=== PATIENT | male | born 1950 | race Caucasian/White ===

== ENCOUNTER 2019-11-29 07:37 | Outpatient (CLI) | payer MEDICARE, SELFPAY ==
--- NOTE | ~2019-11-29 | NM_ITS ---
NM bone scan whole body INDICATION: Metastatic disease. Prostate cancer. TECHNIQUE: The patient was injected with 26.1 mCi Tc 99m HDP. Gamma camera images of the region of i nterest and whole body were obtained. COMPARISON: Comparison to multiple prior studies sequentially, with oldest reviewed study dated 07/14. FINDINGS: There is widespread abnormal radiotracer uptake in the ribs, sternum, spine, femora and the skull, consistent with metastatic disease. The degree of radiotracer uptake is significantly diminis hed compared with 07/14/2018, although not significantly changed compared with 02/15/2019. 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 No significant ch rain to distribution of uptake. IMPRESSION: 1: Widespread radiotracer uptake, compatible with metastatic disease, stable compared with 02/15/2019 and improved compared with 07/14/2018. Reviewed, dictated and finalized at location A. TUTOR IMPRESSION: 1: Widespread radiotracer uptake, compatible with metastatic disease, stable c ompared with 02/15/2019 and improved compared with 07/14/2018.
== END 2019-11-29 07:38 | disposition home or self-care (01) ==
PROVIDERS: PCP Physician Assistant; Visit Provider Internal Medicine Hematology & Oncology
DX: C79.51 Secondary malignant neoplasm of bone (principal)
CPT/HCPCS: 78306; A9561

== ENCOUNTER 2020-04-26 08:34 | Outpatient (CLI) | payer MEDICARE, SELFPAY ==
--- NOTE | ~2020-04-26 | XR_ITS ---
EXAMINATION: XR abdomen/kub 1V EXAM DATE: 04/26/2020 08:48 INDICATION: Gross hematuria. Fragmented symphysis pubis. TECHNIQUE: Frontal projection of the upper abdomen, frontal projection lower abdomen/pelvis for inter pretation. Comparison is made to prior examination from 01/17/2017. FINDINGS: There is expected amount of colonic stool and gas. No small bowel dilation, nonobstructiv e bowel gas pattern. There are no suspicious calcifications identified. There is no organomegaly suspected. Extensive osteoblastic disease in fragment appearance to the pubic symphysis, likely radi ation osteitis and/or osteoblastic disease. IMPRESSION: No suspicious calcifications identified. Reviewed, dictated and finalized at location A.
--- NOTE | ~2020-04-26 | CT_ITS ---
EXAMINATION: CT abdomen pelvis wo/w con EXAM DATE: 04/26/2020 09:16 INDICATION: History kidney stones. Low abdominal pain 4-5 weeks. History prostate cancer. Gross hemat uria. TECHNIQUE: Spiral CT of the abdomen and pelvis was performed without contrast. The patient was then injected with small bolus intravenous Omnipaque 350, followed by delay of approximately 10 minutes to allow collecting system to opacify. A post contrast scan abdomen and pelvis was performed during inj ection of remaining contrast. A total of 130 cc intravenous contrast was administered. The dose-eli th product (DLP) for this examination was 2631.08 mGy-cm. The exposure was tailored according to pat ient size (auto mA exposure control), and iterative reconstruction (ASIR) was used as additional dose reduction technique. Comparison is made to prior examination from 08/13/2019. FINDINGS: Again there is extensive osteoblastic disease, sclerosis of the pubic symphysis, with fragm entation and bony productive change, development of small cystic space measuring 3.1 x 1.8 cm between the superior margin of the pubic symphysis and the bladder, with several tiny foci of gas inside. Un derlying etiology for this could be osteoblastic disease or radiation osteitis. Contrast within the b ladder on the delayed sequence dose not extend into this fluid pocket. The bladder wall contiguous to this is diffusely thickened. Status post prostatectomy with small amount of contrast extending along the expected course of urethra in the prostatectomy bed. Kidneys enhance symmetrically and there is no hydronephrosis or suspicious renal lesions. There is implanted device incompletely imaged, but wit h reservoir in the right inguinal region. The liver, spleen, adrenal glands and pancreas are unremarkable. Gallbladder is unremarkable. No bi liary obstruction. There is no retroperitoneal or pelvic lymphadenopathy. There is mild scattered arteriosclerotic disease. The appendix is normal. The stomach and small bowel are unremarkable. There is expected amount of c olonic stool. There is mild scattered colonic diverticulosis. There is no adjacent inflammatory klein ge to suggest diverticulitis. No free intraperitoneal gas. The heart is normal in size. There are no pericardial or pleural effusions. The lung bases are unremarkable. The extensive osteoblastic d isease includes pelvis, vertebral bodies and ribs probably with several pathological subacute to rn chronic nargis rib fractures. IMPRESSION: 1. Fragmented pubic symphysis now with small fluid pocket between this and the bladder, could be hem atoma/seroma. Bladder wall contiguous to this is diffusely thickened but no urine/contrast extended w ithin this to specifically suggest leak. 2. Extensive osteoblastic disease not significantly changed. Reviewed, dictated and finalized at location A. IMPRESSION: 1. Fragmented pubic symphysis now with small fluid pocket between this and the bladder, could be hematoma/seroma. Bladder wall contiguous to this is diffusel y thickened but no urine/contrast extended within this to specifically suggest leak. 2. Extensive osteoblastic disease not significantly changed.
[2020-04-26 08:59] LABS: Estimated Glomerular Filt Rate > 60
== END 2020-04-26 08:35 | disposition home or self-care (01) ==
PROVIDERS: PCP Physician Assistant; Visit Provider Urology
DX: R31.0 Gross hematuria (principal)
CPT/HCPCS: 36415; 74018; 74178; Q9967

== ENCOUNTER 2020-05-31 08:22 | Outpatient (CLI) | payer MEDICARE, SELFPAY ==
[2020-05-31 08:54] LABS: Basophils Percent Auto 0.5 % (0.2-1.2); Eosinophils Absolute Auto 0.2 K/mm3 (0-0.3); Eosinophils Percent Auto 3.3 % (0-4.4); Hematocrit 38.5 % (42.0-52.0); Hemoglobin 12.4 g/dL (14.0-18.0); Immature Granulocyte Absolute 0.02 K/mm3 (0.00-0.031); Immature Granulocyte Percent A 0.3 % (0-0.5); Lymphocytes Percent Auto 21.3 % (18.3-44.2); Mean Corpuscular HGB Conc 32.2 g/dl (32-36); Mean Corpuscular Hemoglobin 29.6 pg (26-34); Mean Corpuscular Volume 91.9 fl (80-100); Mean Platelet Volume 9.1 fl (7.4-10.4); Monocytes Absolute Auto 0.5 K/mm3 (0.1-0.6); Monocytes Percent Auto 8.5 % (2.6-8.5); Neutrophils Percent Auto 66.1 % (45.5-73.1); Platelet Count Result 258 k/mm3 (150-375); Red Blood Count 4.19 M/mm3 (4.6-6.20); Red Cell Distribution Width 15.9 % (11.5-14.5); White Blood Count 6.1 K/mm3 (4.5-10.0)
[2020-05-31 10:16] LABS: Alanine Aminotransferase 12 U/L (4-50); Albumin Level 3.8 g/dL (3.5-5.1); Alkaline Phosphatase 71 U/L (38-126); Anion Gap 12.4 mmol/L (7-16); Aspartate Amino Transferase 20 U/L (17-59); Bilirubin,Total 0.3 mg/dL (0.2-1.3); Blood Urea Nitrogen 16 mg/dL (9-20); Carbon Dioxide 26 mmol/L (22-30); Chloride 108 mmol/L (98-107); Cholesterol 196 mg/dL (0-200); Estimated Glomerular Filt Rate > 60; Glucose 111 mg/dL (75-110); HDL Direct 52 mg/dL; Potassium 4.4 mmol/L (3.4-5.0); Sodium 142 mmol/L (137-145); Triglycerides 165 mg/dL (<150)
[2020-05-31 10:24] LABS: Hemoglobin A1C 5.1 % (<5.7)
[2020-05-31 10:27] LABS: LDL Cholesterol Direct 105 mg/dL
[2020-05-31 10:39] LABS: Free T4 Free Thyroxine 1.07 ng/mL (0.78-2.19)
[2020-05-31 10:55] LABS: Prostate Specific Antigen < 0.1 ng/mL (< OR = 4.0)
== END 2020-05-31 08:23 | disposition home or self-care (01) ==
PROVIDERS: PCP Physician Assistant; Visit Provider Internal Medicine Hematology & Oncology
DX: C61 Malignant neoplasm of prostate (principal); C79.51 Secondary malignant neoplasm of bone; R73.09 Other abnormal glucose; Z79.899 Other long term (current) drug therapy
CPT/HCPCS: 36415; 80053; 80061; 83036; 84153; 84439; 84443; 85025

== ENCOUNTER 2020-09-05 09:35 | Outpatient (CLI) | payer MEDICARE, SELFPAY ==
--- NOTE | ~2020-09-05 | CT_ITS ---
EXAMINATION: CT chest abdomen pelvis w con DATE: 09/05/2020 10:31 INDICATION: Prostate cancer metastatic to the bone TECHNIQUE: Transaxial computed tomographic images of the chest, abdomen, and pelvis were obtained aft er the administration of 100 cc of Omnipaque 350 intravenous contrast. The dose-length product (DLP) was 1926.31 mGy-cm. Automated exposure control and iterative reconstruction technique were employed. COMPARISON: 04/26/2020 FINDINGS: CHEST CT: There is mild dependent atelectasis. There are trace pleural effusions. No pneumothorax is identified . No pathologically enlarged thoracic lymph nodes are identified. The heart size is normal. Calcified coronary artery atherosclerosis is noted. There is widespread sclerotic osseous metastatic disease t hroughout all visualized bones of the thorax. ABDOMEN/PELVIS CT: The liver, spleen, pancreas, gallbladder, and adrenal glands are normal. The kidneys are unremarkable . No pathologically enlarged abdominal or pelvic lymph nodes are identified. There is no free intrape ritoneal gas or evidence of bowel obstruction. A reservoir for a penile pump is implanted in the righ t inguinal region. There is chronic wall thickening of the urinary bladder. There our widespread osse ous metastases involving all bones of the abdomen and pelvis. There is chronic fragmentation of the p ubic symphysis. An approximately 3.8 x 1.9 cm fluid collection is seen in the area of the pubic symph ysis. IMPRESSION: 1. Widespread osseous metastatic disease. 2. Chronic osteitis of the pubic symphysis which may reflect radiation necrosis and/or osteomyelitis with chronic associated fluid collection, chronic anterior urethral fistula previously identified. 3. Bladder wall thickening which could reflect radiation change or chronic cystitis. Reviewed, dictated and finalized at location A. BENDER IMPRESSION: 1. Widespread osseous metastatic disease. 2. Chronic osteitis of the pubic symphysis which may reflect radiation necrosis and/or osteomyelitis with chronic associated fluid collection, chronic anterio r urethral fistula previously identified. 3. Bladder wall thickening which could reflect radiation change or chronic cyst itis.
--- NOTE | ~2020-09-05 | NM_ITS ---
EXAMINATION: NM bone scan whole body DATE: 09/05/2020 13:56 INDICATION: Metastatic prostate cancer TECHNIQUE: 23.5 mCi Tc-99m HDP was administered intravenously. Delayed whole-body scintigrams were o btained. COMPARISON: Bone scan dated 11/29/[address] chest abdomen and pelvis dated 09/05/2020 FINDINGS: There is a heterogeneous pattern of diffuse mildly increased bone uptake throughout the axial and amarjit endicular skeleton with corresponding widespread sclerotic bone lesions on CT. There is more focal up take in the region of the pubic symphysis likely related to combination of urine activity at the pubi c symphysis resulting from a previous noted likely urethral fistula with the joint space as well as t o the destructive and hypertrophic bone changes at the pubic bodies which itself is likely related to radiation necrosis and/or chronic osteomyelitis. Additional slightly more intense bone uptake is see n at the right side of the mandible which could be related to either metastatic disease or potentiall y dental disease. IMPRESSION: 1. Similar pattern and appearance to widespread metastatic bone disease. 2. 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 Reviewed, dictated and finalized at location A. INSTALLATION TECHNICIAN IMPRESSION: 1. Similar pattern and appearance to widespread metastatic bone disease. 2. Persistent increased activity at the pubic symphysis consistent with radiati on osteonecrosis, chronic osteomyelitis, urine activity communicate with the pu bic symphysis or some combination thereof.
== END 2020-09-05 09:36 | disposition home or self-care (01) ==
PROVIDERS: PCP Physician Assistant; Visit Provider Internal Medicine Hematology & Oncology
DX: C61 Malignant neoplasm of prostate (principal); C79.51 Secondary malignant neoplasm of bone
CPT/HCPCS: 71260; 74177; 78306; A9561; Q9967

== ENCOUNTER → 2020-10-31 11:55 | Outpatient (REF) | payer MEDICARE, SELFPAY | LOC: ANHLAB 11:55 | PROVIDERS: PCP Physician Assistant; Visit Provider Nurse Practitioner | DX: D49.2 Neoplasm of unspecified behavior of bone, soft tissue, and skin (principal) | CPT/HCPCS: 88305 ==

== ENCOUNTER 2020-11-23 15:10 | Outpatient (CLI) | payer MEDICARE, SELFPAY ==
--- NOTE | ~2020-11-23 | US_ITS ---
EXAMINATION: US carotid duplex BI DATE: 11/23/2020 16:01 INDICATION: Dizziness and giddiness. Cerebral atherosclerosis. Metastatic prostate cancer. TECHNIQUE: Grayscale, color Doppler, and pulsed Doppler images of the cervical carotid arteries were obtained. The degree of vessel stenosis is placed in one of the following categories: normal, <50%, 5 0-69%, >=70% but less than near-occlusion, near-occlusion, or total occlusion. Note that percent sten osis relative to normal distal artery lumen diameter is indirectly measured from velocity measurement s as described by Quique, et al. Radiology 2003; 229:340-346. COMPARISON: None. FINDINGS: RIGHT: The right common carotid artery (CCA) peak systolic velocity (PSV) is 102 cm/s. The right internal ca rotid artery (ICA) PSV is 58 cm/s. The right ICA end-diastolic velocity (EDV) is 18 cm/s. The right I CA/CCA PSV ratio is 0.6. Grayscale and color Doppler images yield an estimate of <50% diameter reduct ion from plaque in the ICA. The external carotid artery (ECA) PSV is 99 cm/s. There is antegrade flow in the right vertebral artery. LEFT: The left CCA PSV is 98 cm/s. The left ICA PSV is 84 cm/s. The left ICA EDV is 19 cm/s. The left ICA/C CA PSV ratio is 0.9. Grayscale and color Doppler images yield an estimate of <50% diameter reduction from plaque in the ICA. The ECA PSV is 77 cm/s. There is antegrade flow in the left vertebral artery. IMPRESSION: 1. <50% stenosis from minimal plaque in the right internal carotid artery. 2. <50% stenosis from minimal plaque in the left internal carotid artery. 3. Intermittent cardiac arrhythmia is present. Correlate with EKG . Reviewed, dictated and finalized at location A. DING OPERATOR
--- NOTE | ~2020-11-23 | MR_ITS ---
EXAMINATION: MR brain/brain stem wo/w con DATE: 11/23/2020 16:49 INDICATION: Dizziness and giddiness. Metastatic prostate cancer. TECHNIQUE: Magnetic resonance imaging (MRI) of the brain and brainstem was performed . without and wi th 20 mL Multihance intravenous contrast. Sequences included sagittal and axial T1-weighted SE, axial diffusion-weighted FS SE, axial T2*-weighted GRE, axial T2-weighted FLAIR, and axial T2-weighted FSE . Postcontrast axial and coronal T1-weighted SE was obtained. Apparent diffusion coefficient (ADC) ma ps were created. COMPARISON: None. FINDINGS: There are no areas of restricted diffusion to suggest acute infarction. No intracranial hemorrhage or abnormal intracranial mass lesion. There are scattered areas of nonspecific increased T2-weighted si gnal intensity in the cerebral white matter, predominantly involving the deep and periventricular whi te matter. There are no intraparenchymal signal abnormalities seen on the other pulse sequences. Symm etric prominence of the sulci consistent with mild age-appropriate diffuse cerebral volume loss. The ventricles are symmetric and normal in size. There are no abnormal extra-axial fluid collections. Fl ow voids are seen in the cerebral arteries on the T2-weighted sequences consistent with their expecte d patency. Changes of bilateral intraocular lens replacement. Visualized orbits and soft tissues are unremarkable. There are no areas of abnormal enhancement on the post contrast images. There is loss o f T1 marrow fat signal throughout the cervical spine and patchy decreased T1 fat signal in the skull consistent with provided history of widespread osseous metastatic prostate cancer. IMPRESSION: 1. Normal aging brain with mild volume loss and mild scattered white matter T2 hyperintensity consist ent with chronic small vessel ischemic disease. No acute intracranial process or abnormally enhancing brain lesions. 2. Patchy decreased marrow T1 fat signal in the skull and throughout the visualized cervical spine co nsistent with known history of osseous metastatic prostate cancer. Reviewed, dictated and finalized at location A. T HELPER IMPRESSION: 1. Normal aging brain with mild volume loss and mild scattered white matter T2 hyperintensity consistent with chronic small vessel ischemic disease. No acute intracranial process or abnormally enhancing brain lesions. 2. Patchy decreased marrow T1 fat signal in the skull and throughout the visual ized cervical spine consistent with known history of osseous metastatic prostat e cancer.
== END 2020-11-23 15:11 | disposition home or self-care (01) ==
PROVIDERS: PCP Physician Assistant; Visit Provider Physician Assistant
DX: R42 Dizziness and giddiness (principal); R93.0 Abnormal findings on diagnostic imaging of skull and head, not elsewhere classified; I65.23 Occlusion and stenosis of bilateral carotid arteries
CPT/HCPCS: 70553; 93880; A9577

== ENCOUNTER 2020-12-04 10:35 | Outpatient (CLI) | payer MEDICARE, SELFPAY ==
--- NOTE | 2020-12-04 | ECG_ITS ---
Measurements Intervals [place] Rate: 58 P: 7 MS: 144 QRS: -29 QRSD: 94 T: 1 QT: 430 QTc: 422 Interpretive Statements SINUS BRADYCARDIA DELAYED PRECORDIAL R/S TRANSITION VOLTAGE CRITERIA FOR LVH BORDERLINE T WAVE ABNORMALITY- INFERIOR LEADS BASELINE ARTIFACT- II, III, AVF BORDERLINE ECG Electronically Signed On 12-04-2020 11:06:09 CARE PROFESSIONAL by Percy Adhikari D.O.
== END 2020-12-04 10:36 | disposition home or self-care (01) ==
PROVIDERS: PCP Physician Assistant; Visit Provider Physician Assistant
DX: I49.9 Cardiac arrhythmia, unspecified (principal)
CPT/HCPCS: 93005

== ENCOUNTER → 2020-12-12 10:39 | Outpatient (REF) | payer MEDICARE, SELFPAY | LOC: ANHLAB 10:39 | PROVIDERS: PCP Physician Assistant; Visit Provider Nurse Practitioner | DX: C44.519 Basal cell carcinoma of skin of other part of trunk (principal) | CPT/HCPCS: 88305 ==

== ENCOUNTER 2020-12-12 13:18 | Outpatient (CLI) | payer MEDICARE, SELFPAY ==
[2020-12-12 13:34] LABS: Basophils Percent Auto 0.4 % (0.2-1.2); Eosinophils Absolute Auto 0.1 K/mm3 (0-0.3); Eosinophils Percent Auto 0.8 % (0-4.4); Hematocrit 37.1 % (42.0-52.0); Hemoglobin 12.1 g/dL (14.0-18.0); Immature Granulocyte Absolute 0.03 K/mm3 (0.00-0.031); Immature Granulocyte Percent A 0.4 % (0-0.5); Lymphocytes Absolute Auto 1.43 K/mm3 (0.9-3.2); Lymphocytes Percent Auto 19.2 % (18.3-44.2); Mean Corpuscular HGB Conc 32.6 g/dl (32-36); Mean Corpuscular Hemoglobin 29.9 pg (26-34); Mean Corpuscular Volume 91.6 fl (80-100); Mean Platelet Volume 8.9 fl (7.4-10.4); Monocytes Absolute Auto 0.6 K/mm3 (0.1-0.6); Monocytes Percent Auto 7.9 % (2.6-8.5); Neutrophils Absolute Auto 5.3 K/mm3 (1.3-6.7); Neutrophils Percent Auto 71.3 % (45.5-73.1); Platelet Count Result 251 k/mm3 (150-375); Red Blood Count 4.05 M/mm3 (4.6-6.20); Red Cell Distribution Width 14.9 % (11.5-14.5); White Blood Count 7.4 K/mm3 (4.5-10.0)
[2020-12-12 16:55] LABS: Hemoglobin A1C 5.1 % (<5.7)
[2020-12-12 17:46] LABS: Alanine Aminotransferase 14 U/L (4-50); Albumin Level 3.8 g/dL (3.5-5.1); Alkaline Phosphatase 67 U/L (38-126); Anion Gap 9 mmol/L (8-16); Aspartate Amino Transferase 24 U/L (17-59); Bilirubin,Total 0.2 mg/dL (0.2-1.3); Blood Urea Nitrogen 24 mg/dL (9-20); Calcium 9.5 mg/dL (8.4-10.2); Carbon Dioxide 27 mmol/L (22-30); Chloride 109 mmol/L (98-107); Estimated Glomerular Filt Rate > 60; Glucose 162 mg/dL (75-110); Potassium 3.8 mmol/L (3.4-5.0); Sodium 145 mmol/L (137-145)
[2020-12-12 17:52] LABS: Free T4 Free Thyroxine 0.89 ng/mL (0.78-2.19)
[2020-12-12 18:15] LABS: Prostate Specific Antigen 0.2 ng/mL (< OR = 4.0)
== END 2020-12-12 13:19 | disposition home or self-care (01) ==
LOC: ANHLAB 13:19
PROVIDERS: Internal Medicine Hematology & Oncology; PCP Physician Assistant; Visit Provider Physician Assistant
DX: Z79.899 Other long term (current) drug therapy (principal); R73.09 Other abnormal glucose; C79.51 Secondary malignant neoplasm of bone
CPT/HCPCS: 36415; 80053; 83036; 84153; 84439; 84443; 85025; 88305

== ENCOUNTER 2021-05-10 06:31 | Outpatient (CLI) | payer MEDICARE, SELFPAY ==
--- NOTE | ~2021-05-10 | CT_ITS ---
EXAMINATION: CT chest abdomen pelvis w con EXAM DATE: 05/10/2021 07:03 INDICATION: Cancer, metastatic to bone. TECHNIQUE: Spiral CT of the chest, abdomen and pelvis was performed following intravenous injection o f 100 mL Omnipaque 350. Axial, coronal and sagittal images chest, abdomen and pelvis were reviewed. Coronal maximum intensity pixel images of chest reviewed. The dose-length product (DLP) for this ex amination was 1948.11 mGy-cm. The exposure was tailored according to patient size (auto mA exposure control), and iterative reconstruction (ASIR) was used as additional dose reduction technique. Compar dillon is made to prior examination from 09/05/2020. FINDINGS: CHEST: The lungs are clear. There are no pleural or pericardial effusions. Tracheobronchial tree is patent. There is no mediastinal, hilar or axillary lymphadenopathy. There is no pneumothorax. Mild cardiomegaly. Mild emphysema. There is mild coronary arterial calcification, arterial sclero sis. ABDOMEN PELVIS: There is extensive osteoblastic disease, ill-defined sclerosis throughout the bones. Again there is fragmented appearance to the pubis symphysis with some diastases with interval increas e in density, no evidence of acute erosive change. Could be radiation osteitis. The liver, spleen, adrenal glands and pancreas are unremarkable. Gallbladder is unremarkable. No bi liary obstruction. Portal and splenic veins are patent. Kidneys enhance symmetrically. There is no hydronephrosis. Punctate left mid calyceal stone. Corpora implant, reservoir deep right inguinal can al. Patient has likely had prostatectomy. The bladder is unremarkable. There is no retroperitoneal or pelvic lymphadenopathy. There is mild scattered arteriosclerotic disease. The appendix is normal. There is mild scattered colonic diverticulosis. There is no adjacent inflamm atory change to suggest diverticulitis. The stomach and small bowel are unremarkable. There is expec kayden amount of colonic stool. No free intraperitoneal gas. IMPRESSION: 1. Extensive osteoblastic disease unchanged. 2. Chronic pubic symphysis diastases, fragmentation. Radiation osteitis? 3. Punctate left nephrolithiasis. 4. Scattered colonic diverticulosis. 5. Mild emphysema. Reviewed, dictated and finalized at location B.
== END 2021-05-10 06:32 | disposition home or self-care (01) ==
LOC: ANHIMG 06:37
PROVIDERS: PCP Physician Assistant; Visit Provider Internal Medicine Medical Oncology
DX: C79.51 Secondary malignant neoplasm of bone (principal); N20.0 Calculus of kidney; K57.30 Diverticulosis of large intestine without perforation or abscess without bleeding; J43.9 Emphysema, unspecified
CPT/HCPCS: 71260; 74177; Q9967

== ENCOUNTER 2021-05-11 07:39 | Outpatient (CLI) | payer MEDICARE, SELFPAY ==
--- NOTE | ~2021-05-11 | NM_ITS ---
EXAMINATION: NM bone scan whole body DATE: 05/11/2021 12:43 INDICATION: Prostate cancer metastatic to bone. TECHNIQUE: 26.8 mCi Tc-99m HDP was administered intravenously. Delayed whole-body scintigrams were o btained. COMPARISON: Bone scan 09/05/2020, CT chest, abdomen, and pelvis 05/10/2021 FINDINGS: There is widespread heterogeneous increased activity in the ribs and spine. There is increa sed activity in the sternum, humeral heads, and clavicles. There is increased activity in the femora. There is increased activity in the feet without radiographic comparison, likely osteoarthritis. Ther e is normal activity in the kidneys. IMPRESSION: 1. Stable distribution of widespread increased activity in the bones correlating with sclerotic lesio ns by CT, consistent with metastatic disease. Reviewed, dictated and finalized at location A. IMPRESSION: 1. Stable distribution of widespread increased activity in the bones correlatin g with sclerotic lesions by CT, consistent with metastatic disease.
== END 2021-05-11 07:40 | disposition home or self-care (01) ==
LOC: ANHIMG 07:43
PROVIDERS: PCP Physician Assistant; Visit Provider Internal Medicine Medical Oncology
DX: C79.51 Secondary malignant neoplasm of bone (principal)
CPT/HCPCS: 78306; A9561

== ENCOUNTER 2021-07-10 12:17 | Emergency (ER) | payer MEDICARE, SELFPAY ==
[2021-07-10] VITALS (9 sets, daily range): BP systolic 144–187; BP diastolic 62–94; PULSE 46–60; RESP 13–25; TEMP 36.6; O2SAT 95–97
--- NOTE | 2021-07-10 12:38 | ECG_ITS ---
Measurements Intervals [place] Rate: 56 P: 60 SC: 162 QRS: -25 QRSD: 101 T: -10 QT: 431 QTc: 418 Interpretive Statements SINUS BRADYCARDIA VENTRICULAR BIGEMINY DELAYED PRECORDIAL R/S TRANSITION LEFT VENTRICULAR HYPERTROPHY WITH ST-T CHANGE BORDERLINE T WAVE ABNORMALITY- INFERIOR LEADS BASELINE ARTIFACT- I, III ABNORMAL ECG Electronically Signed On 07-10-2021 14:55:18 CDT by Percy Adhikari D.O.
[2021-07-10 13:27] LABS: Basophils Percent Auto 0.3 % (0.2-1.2); Eosinophils Absolute Auto 0.1 K/mm3 (0-0.3); Eosinophils Percent Auto 1.2 % (0-4.4); Hematocrit 40.7 % (42.0-52.0); Hemoglobin 13.4 g/dL (14.0-18.0); Immature Granulocyte Absolute 0.06 K/mm3 (0.00-0.031); Immature Granulocyte Percent A 0.5 % (0-0.5); Lymphocytes Absolute Auto 1.71 K/mm3 (0.9-3.2); Lymphocytes Percent Auto 14.9 % (18.3-44.2); Mean Corpuscular HGB Conc 32.9 g/dl (32-36); Mean Corpuscular Hemoglobin 30.7 pg (26-34); Mean Corpuscular Volume 93.1 fl (80-100); Mean Platelet Volume 9.1 fl (7.4-10.4); Monocytes Absolute Auto 0.6 K/mm3 (0.1-0.6); Neutrophils Absolute Auto 8.9 K/mm3 (1.3-6.7); Neutrophils Percent Auto 78.1 % (45.5-73.1); Platelet Count Result 260 k/mm3 (150-375); Red Blood Count 4.37 M/mm3 (4.6-6.20); White Blood Count 11.5 K/mm3 (4.5-10.0)
[2021-07-10 13:40] LABS: Anion Gap 10 mmol/L (8-16); Blood Urea Nitrogen 26 mg/dL (9-20); Calcium 9.3 mg/dL (8.4-10.2); Carbon Dioxide 24 mmol/L (22-30); Chloride 109 mmol/L (98-107); Estimated CRCL calculation 118 ml/min; Estimated Glomerular Filt Rate > 60; Glucose 151 mg/dL (65-110); Sodium 143 mmol/L (137-145)
[2021-07-10 13:41] LABS: INR 0.9; Partial Thromboplastin Time 32.3 SECONDS (22.3-36.8); Prothrombin Time 11.9 Seconds (11.1-14.7)
[2021-07-10 13:52] LABS: Troponin I < 0.012 ng/mL (0.000-0.034)
[2021-07-10] MEDS: MECLIZINE HCL 25 MG TABLET PO (14:46)
[2021-07-10] MEDS: SODIUM CHLORIDE 0.9% IV 1,000 ML 999 ML IV CONT (16:17)
[2021-07-10 16:36] LABS: Troponin I 0.023 ng/mL (0.000-0.034)
--- NOTE | 2021-07-10 17:42 | ED.DIZZY ---
HPI - Dizziness General Chief Complaint: Dizziness Stated Complaint: DIZZY,NAUSEA Time Seen by Provider: 07/10/21 12:42 History of Present Illness HPI Narrative: Patient is a 70-year-old male who presents ER with dizziness. Worse with turning his head to the right and also a certain position changes. It is rotational in nature and associated with nausea and vomiting and diaphoresis. Was not experiencing chest pain or pressure. Has had no ringing in his ears. No focal weakness in arm or leg. Related Data Home Medications Medication Instructions Recorded Confirmed magnesium oxide 800 mg PO DAILY 08/24/19 05/31/21 calcium carb,cit 300 mg-D3 200 1 tablet PO DAILY 10/31/20 05/31/21 unit-min no.34-genistein 13.5 mg tablet leuprolide 3.75 mg intramuscular 3.75 mg IM MONTHLY 10/31/20 05/31/21 syringe kit vitamin K2 40 mcg tablet 40 mcg PO DAILY 10/31/20 05/31/21 denosumab [Xgeva] 120 mg SUBCUT ONCE 07/10/21 enzalutamide [Xtandi] 160 mg PO DAILY 07/10/21 ferrous sulfate [FeroSul] mg 07/10/21 hydrocodone-acetaminophen tablet 07/10/21 ibuprofen 07/10/21 morphine PO 07/10/21 Allergies Allergy/AdvReac Type Severity Reaction Status Date / Time No Known Allergies Allergy Unknown . Verified 06/28/21 11:42 Review of Systems Review of Systems: All systems reviewed & are unremarkable except as noted in HPI and below Constitutional: Constitutional: Denies chills, Denies fever(s) and Denies weakness ENT: Reports dizziness and Denies nasal congestion Cardiovascular: Cardiovascular: Denies chest pain and Denies radiating jaw, neck or arm pain Gastrointestinal: Gastrointestinal: Denies abdominal pain, Denies diarrhea, Reports nausea and Reports vomiting Neurologic: Denies headache(s), Denies focal weakness and Denies numbness [facility] Past Medical History Medical History (Updated 07/10/21 @ 17:55 by Edin Morillo MD) Bone metastasis Kidney stones Obstructive sleep apnea Prostate cancer Surgical History Surgical History (Updated 07/10/21 @ 17:46 by Edin Morillo MD) H/O umbilical hernia repair Family History Family History Mother Family history of malignant neoplasm of breast in first degree relative Carcinoma of colon Father Family history of Parkinson's disease Social History Social History Smoking status: Never smoker Alcohol intake: never Exam Narrative: GENERAL: Well-appearing, well-nourished, and in no acute distress. HEAD: Normocephalic, atraumatic. EYES: PERRL and EOMI. right gaze nystagmus. ENT: Mucous membranes moist. Bilateral cerumen impaction right greater than left. CHEST: Clear to auscultation. No respiratory distress. HEART: Regular rate and rhythm. Normal peripheral pulses. EXTREMITIES: Normal range of motion. No edema. SKIN: Warm, dry, no rash. NEURO: Alert and oriented x3. PSYCH: Normal mood and affect. Course Course Emergency Course: Ears irrigated. Feels improved. Also received meclizine. Ambulatory without any dizziness. Vital Signs Vital signs: Vital Signs Temperature 97.9 F 07/10/21 12:14 Pulse Rate 60 07/10/21 12:14 Respiratory Rate 22 H 07/10/21 12:14 Blood Pressure 177/62 H 07/10/21 12:14 Pulse Oximetry 95 07/10/21 12:14 Temperature 97.9 F 07/10/21 12:14 Pulse Rate 60 07/10/21 15:30 Respiratory Rate 20 07/10/21 15:30 Blood Pressure 187/82 H 07/10/21 15:30 Pulse Oximetry 96 07/10/21 15:30 Procedures Ear Wax Removal Both Ears: Ear Wax Removal Date: 07/10/21 Ear Wax Removal Time: 16:30 Cerumenolytic Used: 5-10% Sodium Bicarb solution Results: Re-examined: some cerumen remains TM Examination: TM(s) intact, normal appearance Ear Canal Exam: atraumatic Patient Tolerated Procedure: well Technique: ear canal irrigated and ear canal curetted
== END 2021-07-10 18:40 | disposition home or self-care (01) ==
PROVIDERS: Emergency Medicine; Emergency Provider Emergency Medicine; PCP Physician Assistant
DX: H81.399 Other peripheral vertigo, unspecified ear (principal); H61.23 Impacted cerumen, bilateral; G47.33 Obstructive sleep apnea (adult) (pediatric); Z79.899 Other long term (current) drug therapy; Z51.81 Encounter for therapeutic drug level monitoring
CPT/HCPCS: 36415; 69210; 80048; 84484; 85025; 85610; 85730; 93005; 96360; 99284; A9270; J7030

== ENCOUNTER 2021-09-25 08:08 | Outpatient (CLI) | payer MEDICARE, SELFPAY ==
--- NOTE | ~2021-09-25 | CT_ITS ---
EXAMINATION: CT chest abdomen pelvis w con EXAM DATE: 09/25/2021 08:44 INDICATION: Prostate cancer. TECHNIQUE: Spiral CT of the chest, abdomen and pelvis was performed following intravenous injection o f 100 mL Omnipaque 350. Axial, coronal and sagittal images chest, abdomen and pelvis were reviewed. Coronal maximum intensity pixel images of chest reviewed. The dose-length product (DLP) for this ex amination was 1955.25 mGy-cm. The exposure was tailored according to patient size (auto mA exposure control), and iterative reconstruction (ASIR) was used as additional dose reduction technique. There is no prior study for comparison. FINDINGS: CHEST: The lungs are clear. There are no pleural or pericardial effusions. Tracheobronchial tree is patent. There is no mediastinal, hilar or axillary lymphadenopathy. There is no pneumothorax. Mild cardiomegaly. Mild emphysema. There is mild coronary arterial calcification, arterial sclero sis. ABDOMEN PELVIS: There is extensive osteoblastic disease, ill-defined sclerosis throughout the bones. Again there is fragmented appearance to the pubis symphysis with some diastases, could be radiation o steitis. There is 1 cm region of increased enhancement inferior aspect left liver lobe lateral segment, likely flash filling hemangioma. There is hepatic steatosis. The liver, spleen, adrenal glands and pancreas are otherwise unremarkable. Interval development of mild inflammation surrounding the gallbladder. No calcified cholelithiasis and only mild distention. No acute symptoms have been provided, could be chronic cholecystitis. Portal and splenic veins are patent. Kidneys enhance symmetrically. There is no hydronephrosis. Pun ctate left mid calyceal stone. Corpora implant, reservoir deep right inguinal region. Patient has lik julian had prostatectomy. The bladder is unremarkable. There is no retroperitoneal or pelvic lymphade nopathy. There is mild scattered arteriosclerotic disease. The appendix is normal. There is mild scattered colonic diverticulosis. There is no adjacent inflamm atory change to suggest diverticulitis. The stomach and small bowel are unremarkable. There is expec kayden amount of colonic stool. No free intraperitoneal gas. IMPRESSION: 1. Development of mild inflammation surrounding gallbladder without distention. No acute symptoms key ve been reported. Consider chronic cholecystitis. 2. Extensive osteoblastic disease unchanged. 3. Chronic pubic symphysis diastases, fragmentation. Radiation osteitis? 4. Punctate left nephrolithiasis. 5. Scattered colonic diverticulosis. 6. Mild emphysema. RDING CLERK Reviewed, dictated and finalized at location A. IMPRESSION: 1. Development of mild inflammation surrounding gallbladder without distention . No acute symptoms have been reported. Consider chronic cholecystitis. 2. Extensive osteoblastic disease unchanged. 3. Chronic pubic symphysis diastases, fragmentation. Radiation osteitis? 4. Punctate left nephrolithiasis. 5. Scattered colonic diverticulosis. 6. Mild emphysema.
--- NOTE | ~2021-09-25 | NM_ITS ---
EXAMINATION: NM bone scan whole body DATE: 09/25/2021 13:20 INDICATION: Prostate cancer TECHNIQUE: 25 mCi Tc-99m HDP was administered intravenously. Delayed whole-body scintigrams were obt ained. COMPARISON: CT dated 09/25/2021 FINDINGS: There is diffuse mild heterogeneous increased bone uptake throughout the skull, ribs and remainder th e visualized axial and appendicular skeleton consistent with widespread sclerotic metastatic bone dis ease as seen on prior CT. The degree of uptake is significantly decreased compared with earlier study dated 07/14/18. More prominent likely enthesopathic increased uptake at the bilateral patellae and an terior tibial tuberosities. IMPRESSION: 1. No significant change in a diffuse heterogeneous pattern of mild increased activity consistent wit h widespread osseous metastatic disease. Reviewed, dictated and finalized at location A. EN PRINTER IMPRESSION: 1. No significant change in a diffuse heterogeneous pattern of mild increased a ctivity consistent with widespread osseous metastatic disease.
== END 2021-09-25 08:09 | disposition home or self-care (01) ==
LOC: ANHIMG 08:12
PROVIDERS: PCP Physician Assistant; Visit Provider Internal Medicine Hematology & Oncology
DX: C61 Malignant neoplasm of prostate (principal); C79.51 Secondary malignant neoplasm of bone; N20.0 Calculus of kidney; K57.30 Diverticulosis of large intestine without perforation or abscess without bleeding; J43.9 Emphysema, unspecified
CPT/HCPCS: 71260; 74177; 78306; A9561; Q9967

== ENCOUNTER 2021-11-13 10:37 | Outpatient (CLI) | payer MEDICARE, SELFPAY ==
[2021-11-13 11:47] LABS: Cholesterol 211 mg/dL (0-200); HDL Direct 45 mg/dL; Triglycerides 302 mg/dL (<150)
[2021-11-13 11:49] LABS: Add Urine Microscopic? YES; Appearance Urine Clear (Clear); Bacteria Urine Trace /hpf; Bilirubin Urine Negative (Negative); Blood Urine Negative (Negative); Color Urine Yellow (Yellow); Glucose Urine UA Negative (Negative); Ketones Urine Negative (Negative); Leukocyte Esterase Ur Negative LEU/UL (NEGATIVE); Mucus Urine Few /lpf; Nitrate Urine Negative (Negative); Protein Urine 1+ mg/dL (Negative); RBC Urine 0-2 /hpf (0-2); Specific Grav Ur 1.026 (1.001-1.035); Squamous Epithelial Cell Urine Few /hpf (Few); Urobilinogen Urine Negative mg/dL (<2.0)
[2021-11-13 11:58] LABS: LDL Cholesterol Direct 100 mg/dL
[2021-11-13 12:03] LABS: Free T4 Free Thyroxine 1.01 ng/mL (0.78-2.19)
== END 2021-11-13 10:38 | disposition home or self-care (01) ==
LOC: ANHLAB 10:39
PROVIDERS: PCP Physician Assistant; Visit Provider Internal Medicine Hematology & Oncology
DX: Z51.81 Encounter for therapeutic drug level monitoring (principal); Z79.899 Other long term (current) drug therapy; Z13.220 Encounter for screening for lipoid disorders
CPT/HCPCS: 36415; 80061; 81001; 82248; 84439; 84443

== ENCOUNTER 2022-04-05 15:09 | Observation (INO) | payer MEDICARE, SELFPAY ==
[2022-04-05] VITALS (10 sets, daily range): BP systolic 194–216; BP diastolic 85–142; PULSE 54–88; RESP 20–25; TEMP 35.8–36.3; O2SAT 94–97; BMI 39.4
--- NOTE | ~2022-04-05 | XR_ITS ---
EXAMINATION: XR chest 2V DATE: 04/05/2022 16:26 INDICATION: Dizziness and weakness TECHNIQUE: AP and lateral views of the chest are obtained. COMPARISON: 01/24/2015 FINDINGS: The lungs are free of acute opacities. There is no pleural effusion or pneumothorax. The ca rdiomediastinal silhouette is normal. There is mild thoracic spondylosis. IMPRESSION: 1. No acute cardiopulmonary abnormality. Reviewed, dictated and finalized at location F.
--- NOTE | ~2022-04-05 | CT_ITS ---
EXAMINATION: CT brain wo con INDICATION: Dizziness, nausea and vomiting COMPARISON: MRI, 11/23/2020 TECHNIQUE: Standard unenhanced head CT. The dose-length product (DLP) was 605.33 mGy-cm. The mA was a djusted according to patient size. Iterative reconstruction technique was employed. FINDINGS: There is no acute intraparenchymal hemorrhage. No evidence of mass lesion. No evidence of a cute infarction. There is mild periventricular and subcortical hypodensity probably related to small vessel ischemic disease. There is mild prominence of the sulci and ventricles related to cerebral atr ophy. Intracranial calcified cerebral atherosclerosis is noted. There are no extra-axial collections. There is no mass effect or midline shift. Changes in the globes are likely from ocular lens surgery. There is mild mucosal thickening of the paranasal sinuses. IMPRESSION: 1. No acute intracranial abnormality. 2. Age related findings. Reviewed, dictated and finalized at location F.
--- NOTE | 2022-04-05 15:39 | ECG_ITS ---
Measurements Intervals [place] Rate: 51 P: 19 WA: 135 QRS: -29 QRSD: 102 T: -20 QT: 467 QTc: 431 Interpretive Statements SINUS BRADYCARDIA WITH OCCASIONAL SUPRAVENTRICULAR PREMATURE COMPLEXES VOLTAGE CRITERIA FOR LVH [MEETS CRITERIA IN ONE OF: R(aVL), S(V1), R(V5), R(V5/V6)+S(V1)] NONSPECIFIC T-WAVE ABNORMALITY ABNORMAL ECG COMPARED TO ECG 07/10/2021 12:21:42 PVCS NOT APPRECIATED Electronically Signed On 04-05-2022 17:25:29 CDT by True Castro M.D.
--- NOTE | 2022-04-05 16:02 | ED.DIZZY ---
HPI - Dizziness General Chief Complaint: Syncope Stated Complaint: DIZZINESS AFTER MOWING LAWN Time Seen by Provider: 04/05/22 15:27 History of Present Illness HPI Narrative: 71 y/o male presents to the ER today for complaints of dizziness and lightheadedness. He was out mowing grass on a riding grief counsellor today and started to feel very dizzy. He rode back up to the house. His had to help him off of the mower but she had to pull a lawn chair up to the mower and helped him into the chair. He sat in the chair for a long while. He had some nausea and vomiting but this resolved. He had an episode where his vision seemed blurry that lasted briefly and resolved. He still Related Data Home Medications Medication Instructions Recorded Confirmed magnesium oxide 800 mg PO DAILY 08/24/19 03/19/22 calcium carb,cit 300 mg-D3 200 1 tablet PO DAILY 10/31/20 03/19/22 unit-min no.34-genistein 13.5 mg tablet (Citracal Plus Bone Density Builder) leuprolide 3.75 mg intramuscular 3.75 mg IM MONTHLY 10/31/20 03/19/22 syringe kit (Lupron Depot) vitamin K2 40 mcg tablet 40 mcg PO DAILY 10/31/20 03/19/22 denosumab 120 mg/1.7 mL (70 mg/mL) 120 mg subcut ONCE 07/10/21 03/19/22 subcutaneous solution (Xgeva) ferrous sulfate 325 mg (65 mg 325 mg PO DAILY 07/10/21 03/19/22 iron) tablet (FeroSul) hydrocodone 10 mg-acetaminophen 1 tablet PO Q8-12H PRN Pain 07/10/21 03/19/22 325 mg tablet ibuprofen 800 mg tablet 800 mg PO Q6-12H 07/10/21 03/19/22 morphine 15 mg tablet,extended 15 mg PO Q10-12H 07/10/21 03/19/22 release Allergies Allergy/AdvReac Type Severity Reaction Status Date / Time No Known Allergies Allergy Unknown . Verified 03/19/22 12:36 Review of Systems Review of Systems: All systems reviewed & are unremarkable except as noted in HPI and below Constitutional: Constitutional: Denies chills, Denies fever(s) and Denies weakness ENT: Reports dizziness and Denies nasal congestion Cardiovascular: Cardiovascular: Denies chest pain and Denies radiating jaw, neck or arm pain Gastrointestinal: Gastrointestinal: Denies abdominal pain, Denies diarrhea, Reports nausea and Reports vomiting Musculoskeletal: Musculoskeletal: Denies back pain, Denies myalgias and Denies arthralgias Neurologic: Denies vertigo, Reports dizziness, Denies syncope, Denies headache(s), Denies focal weakness and Denies numbness Endocrine: Endocrine: Denies fatigue, Denies polydipsia and Denies polyuria Hematologic/Lymphatic: Hematologic/Lymphatic: Denies easy bleeding and Denies easy bruising PMFSH Past Medical History Medical History Bone metastasis Kidney stones Obstructive sleep apnea Prostate cancer Surgical History Surgical History H/O umbilical hernia repair Family History Family History Mother Family history of malignant neoplasm of breast in first degree relative Carcinoma of colon Father Family history of Parkinson's disease Social History Social History Smoking status: Never smoker Alcohol intake: never Exam Const: General: no acute distress and alert; No ill appearing HENMT: Head: normal to inspection Eyes: Conjunctivae: conjunctivae normal Pupils: Equal, round and reactive pupils present Neck: Neck: normal visual inspection Chest: Chest palpation & inspection: normal inspection of the chest Resp: Effort & Inspection: normal respiratory effort, not labored and no retractions Cardio: Rate: regular rate Rhythm: regular rhythm Heart sounds: no murmurs GI: Auscultation: normal bowel sounds Other: Abdmomen soft, non-tender Skin: General skin exam: normal color Neuro: General: patient oriented x3, moves all extremities, no meningeal signs, no focal motor deficits and
[2022-04-05] MEDS: SODIUM CHLORIDE 0.9% IV 1,000 ML 999 ML IV CONT (16:10)
[2022-04-05 16:41] LABS: Basophils Percent Auto 0.4 % (0.2-1.2); Eosinophils Absolute Auto 0.1 K/mm3 (0-0.3); Eosinophils Percent Auto 0.5 % (0-4.4); Hematocrit 39.3 % (42.0-52.0); Hemoglobin 12.8 g/dL (14.0-18.0); Immature Granulocyte Percent A 0.9 % (0-0.5); Lymphocytes Absolute Auto 1.34 K/mm3 (0.9-3.2); Lymphocytes Percent Auto 12.2 % (18.3-44.2); Mean Corpuscular HGB Conc 32.6 g/dl (32-36); Mean Corpuscular Hemoglobin 29.5 pg (26-34); Mean Corpuscular Volume 90.6 fl (80-100); Monocytes Absolute Auto 0.6 K/mm3 (0.1-0.6); Monocytes Percent Auto 5.4 % (2.6-8.5); Neutrophils Absolute Auto 8.9 K/mm3 (1.3-6.7); Neutrophils Percent Auto 80.6 % (45.5-73.1); Platelet Count Result 245 k/mm3 (150-375); Red Blood Count 4.34 M/mm3 (4.6-6.20); Red Cell Distribution Width 14.7 % (11.5-14.5)
[2022-04-05 16:51] LABS: Prothrombin Time 12.6 Seconds (11.1-14.7)
[2022-04-05 16:52] LABS: Partial Thromboplastin Time 31.3 SECONDS (22.3-36.8)
[2022-04-05 16:53] LABS: Alanine Aminotransferase 18 U/L (6-50); Albumin Level 4.3 g/dL (3.5-5.1); Alkaline Phosphatase 102 U/L (38-126); Anion Gap 7 mmol/L (8-16); Aspartate Amino Transferase 35 U/L (17-59); Bilirubin,Total 0.4 mg/dL (0.2-1.3); Blood Urea Nitrogen 14 mg/dL (9-20); Calcium 9.1 mg/dL (8.4-10.2); Carbon Dioxide 28 mmol/L (22-30); Chloride 107 mmol/L (98-107); Estimated CRCL calculation 103 ml/min; Estimated Glomerular Filt Rate > 60; Glucose 167 mg/dL (65-110); Potassium 3.8 mmol/L (3.4-5.0); Sodium 142 mmol/L (137-145)
[2022-04-05 16:58] LABS: Appearance Urine Clear (Clear); Bilirubin Urine Negative (Negative); Blood Urine 1+ (Negative); Color Urine Yellow (Yellow); Glucose Urine UA Negative (Negative); Ketones Urine Negative (Negative); Leukocyte Esterase Ur Negative LEU/UL (Negative); Nitrate Urine Negative (Negative); Protein Urine Negative (Negative); Urobilinogen Urine 0.2 mg/dL (<2.0)
[2022-04-05 17:04] LABS: Add Urine Microscopic? YES; Mucus Urine Rare /lpf; RBC Urine 21-50 /hpf (0-2); Squamous Epithelial Cell Urine Rare /hpf (Few); WBC Urine 0-3 /hpf
[2022-04-05 17:17] LABS: Troponin I 0.037 ng/mL (0.000-0.034)
[2022-04-05] MEDS: ASPIRIN 81 MG CHEWABLE TABLET 324 MG PO (19:31)
[2022-04-05 20:08] LABS: SARS-CoV-2 RNA PCR Negative
[2022-04-05 20:51] LABS: Troponin I 0.052 ng/mL (0.000-0.034)
--- NOTE | 2022-04-05 22:06 | ADMIMU ---
This patient, Tesfaye Tejada, was admitted to IMU status, and placed in IMU Room 206-02 at 2130. Patient/family oriented to hospital policies and general routines including ID bracelet, bed and alarms, visiting hours, pain management, procedures, bathroom and other care routines, personal items, smoking policy, room service/diet, and visiting hours. Information on how to activate the Rapid Response Team has been discussed. Patient/Family are encouraged to report perceived risks to care and to ask questions if they do not understand what they are told or what they should do.
--- NOTE | 2022-04-05 22:35 | PM.IMHP ---
H&P: HPI History of Present Illness Date/Time: 04/05/22 22:35 [facility] Past Medical History Medical History (Updated 04/06/22 @ 01:36 by Kyra Castaneda MD) Bone metastasis Kidney stones Obstructive sleep apnea Prostate cancer Surgical History Surgical History H/O umbilical hernia repair Family History Family History Mother Family history of malignant neoplasm of breast in first degree relative Carcinoma of colon Father Family history of Parkinson's disease Social History Social History Smoking status: Never smoker Second hand tobacco smoke exposure: Yes Alcohol intake: never Substance use: never Spiritual care concerns: Yes (non-anabaptism) Meds Home Medications and Allergies Home Medications Medication Instructions Recorded Confirmed Type magnesium oxide 800 mg PO DAILY 08/24/19 04/05/22 History calcium carb,cit 300 mg-D3 200 1 tablet PO DAILY 10/31/20 04/05/22 History unit-min no.34-genistein 13.5 mg tablet (Citracal Plus Bone Density Builder) leuprolide 3.75 mg intramuscular 3.75 mg IM MONTHLY 10/31/20 04/05/22 History syringe kit (Lupron Depot) vitamin K2 40 mcg tablet 40 mcg PO DAILY 10/31/20 04/05/22 History ferrous sulfate 325 mg (65 mg 650 mg PO DAILY 07/10/21 04/05/22 History iron) tablet (FeroSul) hydrocodone 10 mg-acetaminophen 1 tablet PO Q4H PRN Pain 07/10/21 04/05/22 History 325 mg tablet ibuprofen 800 mg tablet 800 mg PO Q6H PRN pain 07/10/21 04/05/22 History morphine 15 mg tablet,extended 15 mg PO Q12H 07/10/21 04/05/22 History release abiraterone 250 mg tablet 4 tablet PO QAM 04/05/22 04/05/22 History prednisone 5 mg tablet 1 tablet PO DAILY 04/05/22 04/05/22 History Allergies Allergy/AdvReac Type Severity Reaction Status Date / Time No Known Allergies Allergy Unknown . Verified 03/19/22 12:36 Vital Signs Vital Signs - 24 hr 04/05/22 15:19 04/05/22 16:02 04/05/22 16:51 Temperature 96.5 F L Pulse Rate 88 57 L Respiratory Rate 20 21 H Blood Pressure 210/85 H 216/142 H Pulse Oximetry 97 96 97 Oxygen Delivery Room Air 04/05/22 17:00 04/05/22 17:22 04/05/22 17:52 Temperature Pulse Rate 58 L 56 L 62 Respiratory Rate 25 H 25 H 24 H Blood Pressure Pulse Oximetry 96 95 96 Oxygen Delivery 04/05/22 18:30 04/05/22 18:45 04/05/22 21:30 Temperature 97.4 F L Pulse Rate 58 L 54 L 74 Respiratory Rate 25 H 22 H 22 H Blood Pressure 194/100 H Pulse Oximetry 94 96 96 Oxygen Delivery H&P: Results Labs Labs: Short CBC 04/05/22 Range/Units 16:34 WBC 11.0 H (4.5-10.0) K/mm3 Hgb 12.8 L (14.0-18.0) g/dL Hct 39.3 L (42.0-52.0) % Plt Count 245 (150-375) k/mm3 BMP 04/05/22 16:34 Sodium 142 Potassium 3.8 Chloride 107 Carbon Dioxide 28 BUN 14 Creatinine 0.80 Glucose 167 H Calcium 9.1 Cardiac Enzymes 04/05/22 04/05/22 Range/Units 16:34 19:57 Troponin I 0.037 H* 0.052 H* D (0.000-0.034) ng/mL Liver Function 04/05/22 Range/Units 16:34 Total Bilirubin 0.4 (0.2-1.3) mg/dL AST 35 (17-59) U/L ALT 18 (6-50) U/L Alkaline Phosphatase 102 (38-126) U/L Albumin 4.3 (3.5-5.1) g/dL Urine 04/05/22 Range/Units 16:49 Urine Color Yellow (Yellow) Urine Appearance Clear (Clear) Urine pH 7.0 (5.0-9.0) Ur Specific [place] 1.020 (1.001-1.035) Urine Protein Negative (Negative) mg/dL Urine Glucose (UA) Negative (Negative) mg/dL Assessment and Plan Assessment and plan (1) Obstructive sleep apnea: Code(s): G47.33 - Obstructive sleep apnea (adult) (pediatric) Status: Acute (2) Dizziness: Code(s): R42 - Dizziness and giddiness Status: Acute (3) Elevated troponin: Code(s): R77.8 - Other specified abnorma
--- NOTE | 2022-04-05 22:50 | PHAR ---
Abiraterone 250 mg tablet TAKE 4 TABLETS BY MOUTH ONCE DAILY. VERIFIED IN [facility] AND SENT BACK UP TO IMU WITH RN.
[2022-04-05] MEDS: MORPHINE SULFATE (*CRX) 15 MG TABCR PO (23:56)
[2022-04-06] VITALS: BP 148/75; PULSE 61; PULSE 62; RESP 18; TEMP 36.3; O2SAT 96
[2022-04-06 00:15] LABS: Troponin I 0.057 ng/mL (0.000-0.034)
--- NOTE | 2022-04-06 03:00 | HP_ITS ---
This report was moved to the correct visit on 05/17/22. Original report was signed by Kyra Castaneda MD on 04/06/22 0300. H&P: HPI History of Present Illness Date/Time: 04/05/22 19:33 Chief Complaint: Near-syncope Narrative: This is a 71-year-old male with past medical history significant for prostate CA metastatic bone disease, morbid obesity, obstructive sleep apnea on BiPAP at nighttime. Patient presents to the emergency room via EMS after he had an episode of dizziness, generalized weakness, slumped over his mowing machine, profuse diaphoresis, altered mental status. According to patient he had been mowing his lawn and whether was fine he spent several hours while at this activity when he begin feeling slightly dizzy which progressively got worse, patient denied incontinence, non felt nauseated but no vomiting, had palpitations, but no chest pain, no abdominal pain, no calves pain, no shortness of breath, patient has been in his usual state of health denied any cough, sputum production, fevers, rigors, chills, diarrhea, no leg swelling. Preliminary workup was significant for systolic blood pressure in the 200 range and diastolic blood pressure in the 80s to 100s range, a CT of the head did not show any acute intracranial abnormality, troponins x3 were elevated at 0,052 and 0.055 respectively. Patient has been admitted for further evaluation management and treatment.. Review of Systems Review of Systems: Near syncopal episode, diaphoresis, dizziness. Constitutional: Constitutional: Denies chills, Denies fever(s), Denies headache(s) and Denies night sweats Eyes: Eyes: Denies change in vision ENT: Denies dysphagia, Reports vertigo, Reports dizziness, Denies headache(s), Denies nasal congestion, Denies nasal discharge, Denies nasal obstruction and Denies odynophagia Cardiovascular: Cardiovascular: Denies chest pain, Denies syncope, Denies pedal edema, Denies irregular heart rhythm, Denies claudication, Reports lightheadedness, Denies radiating jaw, neck or arm pain, Reports palpitations, Denies dyspnea and Denies dyspnea on exertion Respiratory: Respiratory: Denies chest congestion and Denies cough Gastrointestinal: Gastrointestinal: Denies abdominal pain, Denies dyspepsia, Denies heartburn, Denies diarrhea, Denies nausea and Denies vomiting Genitourinary: Genitourinary: Denies dysuria Musculoskeletal: Musculoskeletal: Denies back pain and Denies arthralgias Integumentary/Breasts: Skin/Breast: Denies rash Neurologic: Reports dizziness, Denies syncope, Denies focal weakness and Denies Sensory deficit (Neuro) Psychiatric: Psychiatric: Reports no additional psychiatric complaints and Reports as per HPI Endocrine: Endocrine: Denies cold intolerance, Denies flushing, Denies heat intolerance, Denies polyphagia, Denies polydipsia and Denies palpitations Hematologic/Lymphatic: Hematologic/Lymphatic: Reports no additional hematologic/lymphatic complaints and Reports as per HPI PMFSH Past Medical History Medical History (Updated 04/06/22 @ 02:55 by Kyra Castaneda MD) Bone metastasis Kidney stones Obstructive sleep apnea Prostate cancer Surgical History Surgical History H/O umbilical hernia repair Family History Family History Mother Family history of malignant neoplasm of breast in first degree relative Carcinoma of colon Father Family history of Parkinson's disease Social History Social History Smoking status: Never smoker Second hand tobacco smoke exposure: Yes Alcohol intake: never Substance use
[2022-04-06 04:00] VITALS: BP 156/84; PULSE 63; PULSE 74; RESP 18; TEMP 36.6; O2SAT 96
[2022-04-06 08:00] VITALS: BP 130/76; PULSE 66; PULSE 77; RESP 20; TEMP 36.8; O2SAT 94
[2022-04-06] MEDS: Abiraterone 250 mg tablet 4 EACH BY MOUTH (10:11)
--- NOTE | 2022-04-06 11:30 | PM.DS ---
DS: Admitting Diagnosis Discharge Date April 06, 2022 Admitting Diagnosis Dizziness DS: Discharge Diagnosis Discharge Diagnosis (1) Obstructive sleep apnea: Code(s): G47.33 - Obstructive sleep apnea (adult) (pediatric) Status: Acute Assessment and Plan: Continue current management home (2) Dizziness: Code(s): R42 - Dizziness and giddiness Status: Acute Assessment and Plan: Likely related to elevated blood pressure. Patient reports this occurred while cutting his grass. No changes to medications made here his blood pressures. However prior to when came into the ER, while he was having somedizziness his blood pressure was as high as 200. Denied chest pain or any cardiac complaints. Workup unrevealing. (3) Elevated troponin: Code(s): R77.8 - Other specified abnormalities of plasma proteins Status: Acute Assessment and Plan: No chest pain, no palpitations. (4) Bone metastasis: Code(s): C79.51 - Secondary malignant neoplasm of bone Status: Acute (5) Prostate cancer: Code(s): C61 - Malignant neoplasm of prostate Status: Acute Assessment and Plan: Followup primary care physician and his oncologist (6) Morbid obesity with BMI of 50.0-59.9, adult: Code(s): E66.01 - Morbid (severe) obesity due to excess calories; Z68.43 - Body mass index [BMI] 50.0-59.9, adult Status: Acute DS: Summary Hospital Course Hospital Course: Admitted for dizziness while cutting his grass. Blood pressure was elevated at home. However normalized here in the hospital. No change to medications. Workup otherwise unrevealing. He is feeling fine wants to go home recommended to follow up with primary care physician Time Spent with Patient Time attestation: Total time spent providing and/or coordinating discharge services: DS: Data Data Completed and Pending Labs on day of discharge: Labs from last 24 hours 04/05/22 04/05/22 04/05/22 23:17 19:57 19:25 WBC RBC Hgb Hct MCV MCH MCHC RDW Plt Count MPV Immature Gran % (Auto) Neut % (Auto) Lymph % (Auto) Saline % (Auto) Eos % (Auto) Baso % (Auto) Lymph # (Auto) Saline # (Auto) Eos # (Auto) Baso # (Auto) Abs Immat Gran (auto) Absolute Neuts (auto) Absolute Nucleated RBC Nucleated RBC % PT INR APTT Sodium Potassium Chloride Carbon Dioxide Anion Gap BUN Creatinine Estim Creat Clear Calc Estimated GFR Glucose Calcium Total Bilirubin AST ALT Alkaline Phosphatase Troponin I 0.057 H* 0.052 H* D Total Protein Albumin Urine Color Urine Appearance Urine pH Ur Specific [place] Urine Protein Urine Glucose (UA) Urine Ketones Ur Blood (Man) Urine Nitrate Urine Bilirubin Urine Urobilinogen Leukocyte Esterase Rfl Urine RBC Urine WBC Ur Squamous Epith Cells Urine Mucus SARS-CoV-2 RNA (RT-PCR) Negative 04/05/22 04/05/22 04/05/22 16:49 16:34 16:34 WBC RBC Hgb Hct MCV MCH MCHC RDW Plt Count MPV Immature Gran % (Auto) Neut % (Auto) Lymph % (Auto) Saline % (Auto) Eos % (Auto) Baso % (Auto) Lymph # (Auto) Saline # (Auto) Eos # (Auto) Baso # (Auto) Abs Immat Gran (auto) Absolute Neuts (auto) Absolute Nucleated RBC Nucleated RBC % PT 12.6 INR 1.0 APTT 31.3 Sodium 142 Potassium 3.8 Chloride 107 Carbon Dioxide 28 Anion Gap 7 L BUN 14 Creatinine 0.80 Estim Creat Clear Calc 103 Estimated GFR > 60 Glucose 167 H Calcium 9.1 Total Bilirubin 0.4 AST 35 ALT 18 Alkaline Phosphatase 102 Troponin I 0.037 H* Total Protein 8.0 Albumin 4.3 Urine Color Yellow Urine Appearance Clear Urine pH 7.0 Ur Specific [place] 1.020 Urine Protein Negative
[2022-04-06 11:56] VITALS: BP 157/72; PULSE 68; RESP 20; TEMP 36.6; O2SAT 97
--- NOTE | 2022-04-06 12:12 | PC.NURSE ---
Patient discharged to home. Patient home medications returned to patient. IV removed, and patient left floor wit hospital staff. No distress or complaints at the time of discharge.
== END 2022-04-06 12:11 | disposition home or self-care (01) ==
LOC: ANHED 19:46 → ANHIMU 20:58
PROVIDERS: Admitting Provider Chiropractor; Emergency Provider Nurse Practitioner Family; PCP Physician Assistant; Visit Provider Chiropractor
DX: R42 Dizziness and giddiness (principal); R11.2 Nausea with vomiting, unspecified; C61 Malignant neoplasm of prostate; C79.51 Secondary malignant neoplasm of bone; G47.33 Obstructive sleep apnea (adult) (pediatric); R77.8 Other specified abnormalities of plasma proteins; E66.01 Morbid (severe) obesity due to excess calories; Z68.43 Body mass index [BMI] 50.0-59.9, adult; Z20.822 Contact with and (suspected) exposure to COVID-19
CPT/HCPCS: 36415; 70450; 71046; 80053; 81001; 84484; 85025; 85610; 85730; 93005; 96360; 99285; A9270; C9803; G0378; J7030; U0003; U0005

== ENCOUNTER 2022-04-10 08:13 | Outpatient (CLI) | payer MEDICARE, SELFPAY ==
--- NOTE | 2022-04-05 19:33 | PM.IMHP ---
H&P: HPI History of Present Illness Date/Time: 04/05/22 19:33 Chief Complaint: Near-syncope Narrative: This is a 71-year-old male with past medical history significant for prostate CA metastatic bone disease, morbid obesity, obstructive sleep apnea on BiPAP at nighttime. Patient presents to the emergency room via EMS after he had an episode of dizziness, generalized weakness, slumped over his mowing machine, profuse diaphoresis, altered mental status. According to patient he had been mowing his lawn and whether was fine he spent several hours while at this activity when he begin feeling slightly dizzy which progressively got worse, patient denied incontinence, non felt nauseated but no vomiting, had palpitations, but no chest pain, no abdominal pain, no calves pain, no shortness of breath, patient has been in his usual state of health denied any cough, sputum production, fevers, rigors, chills, diarrhea, no leg swelling. Preliminary workup was significant for systolic blood pressure in the 200 range and diastolic blood pressure in the 80s to 100s range, a CT of the head did not show any acute intracranial abnormality, troponins x3 were elevated at 0,052 and 0.055 respectively. Patient has been admitted for further evaluation management and treatment.. Review of Systems Review of Systems: Near syncopal episode, diaphoresis, dizziness. Constitutional: Constitutional: Denies chills, Denies fever(s), Denies headache(s) and Denies night sweats Eyes: Eyes: Denies change in vision ENT: Denies dysphagia, Reports vertigo, Reports dizziness, Denies headache(s), Denies nasal congestion, Denies nasal discharge, Denies nasal obstruction and Denies odynophagia Cardiovascular: Cardiovascular: Denies chest pain, Denies syncope, Denies pedal edema, Denies irregular heart rhythm, Denies claudication, Reports lightheadedness, Denies radiating jaw, neck or arm pain, Reports palpitations, Denies dyspnea and Denies dyspnea on exertion Respiratory: Respiratory: Denies chest congestion and Denies cough Gastrointestinal: Gastrointestinal: Denies abdominal pain, Denies dyspepsia, Denies heartburn, Denies diarrhea, Denies nausea and Denies vomiting Genitourinary: Genitourinary: Denies dysuria Musculoskeletal: Musculoskeletal: Denies back pain and Denies arthralgias Integumentary/Breasts: Skin/Breast: Denies rash Neurologic: Reports dizziness, Denies syncope, Denies focal weakness and Denies Sensory deficit (Neuro) Psychiatric: Psychiatric: Reports no additional psychiatric complaints and Reports as per HPI Endocrine: Endocrine: Denies cold intolerance, Denies flushing, Denies heat intolerance, Denies polyphagia, Denies polydipsia and Denies palpitations Hematologic/Lymphatic: Hematologic/Lymphatic: Reports no additional hematologic/lymphatic complaints and Reports as per HPI PMFSH Past Medical History Medical History (Updated 04/06/22 @ 02:55 by Kyra Castaneda MD) Bone metastasis Kidney stones Obstructive sleep apnea Prostate cancer Surgical History Surgical History H/O umbilical hernia repair Family History Family History Mother Family history of malignant neoplasm of breast in first degree relative Carcinoma of colon Father Family history of Parkinson's disease Social History Social History Smoking status: Never smoker Second hand tobacco smoke exposure: Yes Alcohol intake: never Substance use: never Spiritual care concerns: Yes (non-sikhism) Meds Home Medications and Allergies Home Medications Medication Instructions Recorded Confirmed Type magnesium oxide 800 mg PO DAILY 08/24/19 04/05/22 History calcium carb,cit 300 mg-D3 200 1 tablet PO DAILY 10/31/20 04/05/22 History unit-min no.34-genistein 13.5 mg tablet (Citracal Plus
--- NOTE | ~2022-04-10 | NM_ITS ---
EXAMINATION: NM bone scan whole body DATE: 04/10/2022 13:13 INDICATION: Prostate cancer metastatic to bone. TECHNIQUE: 26.4 mCi Tc-99m MDP was administered intravenously. Delayed whole-body scintigrams were o btained. COMPARISON: CT chest, abdomen, and pelvis 04/10/2022, bone scan 09/25/2021, PET/CT 07/14/18 FINDINGS: There is widespread heterogeneous increased activity in the bones involving the spine, ribs , humeri, clavicles, sternum, and femora correlating with sclerotic lesions by CT. Again seen is incr eased activity in right mandible that may be of dental origin. There is increased activity in the kne es and feet without radiographic comparison, which may be degenerative change. IMPRESSION: 1. Widespread osseous metastatic disease, unchanged in distribution from 09/25/21. Reviewed, dictated and finalized at location A. IMPRESSION: 1. Widespread osseous metastatic disease, unchanged in distribution from .
--- NOTE | ~2022-04-10 | CT_ITS ---
EXAMINATION: CT chest abdomen pelvis wo con DATE: 04/10/2022 08:47 INDICATION: Prostate cancer, metastatic to bone; restaging TECHNIQUE: Computed tomography (CT) of the chest, abdomen, and pelvis was performed without intraveno us contrast. Automated exposure control and iterative reconstruction technique were employed. Exam do se: 1905.99 mGy-cm total exam DLP. COMPARISON: 09/25/2021 CT chest abdomen pelvis 05/02/2022 AP and lateral chest FINDINGS: CHEST CT: Mild chronic discoid scarring in the left lower lobe. No pulmonary infiltrate or consolidation or pul monary mass lesion. Normal heart size. Coronary artery calcification. No pericardial effusion. There is thoracic aortic calcification but no aneurysm. No hilar or mediastinal mass lesion or lympha denopathy. ABDOMEN/PELVIS CT: The liver, gallbladder, bile ducts, spleen, pancreas, pancreatic duct and adrenal glands and kidneys are unremarkable on this limited noncontrast examination. Normal caliber and atherosclerotic calcification of the abdominal aorta, iliac and femoral arteries n o intraperitoneal or retroperitoneal or pelvic mass lesion or adenopathy or ascites. Daniel's prosthesis. Status post prostatectomy. Normal appendix. Diverticulosis of the sigmoid and descending colon; no CT evidence of diverticulitis . No bowel obstruction, bowel wall thickening, pneumatosis or intraperitoneal free air. Small fat-containing right inguinal hernia. Again noted is extensive osteosclerotic metastatic disease. Chronic compression deformities including T2, T5, T11, L1, L2 and L4, stable since 09/25/2021. Chronic deformity at the pubic symphysis. IMPRESSION: Extensive osteosclerotic metastatic disease is again noted Status post prostatectomy Daniel's prosthesis Diverticulosis of left colon; no evidence of diverticulitis Reviewed, dictated and finalized at [facility]. Reviewed, dictated and finalized at location A.
== END 2022-04-10 08:14 | disposition home or self-care (01) ==
LOC: ANHIMG 08:14
PROVIDERS: PCP Physician Assistant; Visit Provider Internal Medicine Hematology & Oncology
DX: C79.51 Secondary malignant neoplasm of bone (principal); I10 Essential (primary) hypertension; Z90.79 Acquired absence of other genital organ(s); K57.90 Diverticulosis of intestine, part unspecified, without perforation or abscess without bleeding; Z96.89 Presence of other specified functional implants
CPT/HCPCS: 71250; 74176; 78306; A9561

== ENCOUNTER 2022-05-17 09:37 | Outpatient (CLI) | payer MEDICARE, SELFPAY ==
[2022-05-17 09:56] LABS: Basophils Percent Auto 0.5 % (0.2-1.2); Eosinophils Absolute Auto 0.2 K/mm3 (0-0.3); Eosinophils Percent Auto 2.8 % (0-4.4); Hematocrit 37.2 % (42.0-52.0); Hemoglobin 11.7 g/dL (14.0-18.0); Immature Granulocyte Absolute 0.05 K/mm3 (0.00-0.031); Immature Granulocyte Percent A 0.7 % (0-0.5); Lymphocytes Absolute Auto 1.49 K/mm3 (0.9-3.2); Lymphocytes Percent Auto 19.8 % (18.3-44.2); Mean Corpuscular HGB Conc 31.5 g/dl (32-36); Mean Corpuscular Hemoglobin 29.1 pg (26-34); Mean Corpuscular Volume 92.5 fl (80-100); Monocytes Absolute Auto 0.7 K/mm3 (0.1-0.6); Monocytes Percent Auto 8.6 % (2.6-8.5); Neutrophils Absolute Auto 5.1 K/mm3 (1.3-6.7); Neutrophils Percent Auto 67.6 % (45.5-73.1); Platelet Count Result 237 k/mm3 (150-375); Red Blood Count 4.02 M/mm3 (4.6-6.20); Red Cell Distribution Width 15.4 % (11.5-14.5); White Blood Count 7.5 K/mm3 (4.5-10.0)
[2022-05-17 10:17] LABS: Cholesterol 154 mg/dL (0-200); HDL Direct 34 mg/dL; Triglycerides 174 mg/dL (<150)
[2022-05-17 10:28] LABS: LDL Cholesterol Direct 60 mg/dL
[2022-05-17 13:06] LABS: Alanine Aminotransferase 13 U/L (6-50); Albumin Level 3.7 g/dL (3.5-5.1); Alkaline Phosphatase 86 U/L (38-126); Anion Gap 7 mmol/L (8-16); Aspartate Amino Transferase 30 U/L (17-59); Bilirubin,Total 0.4 mg/dL (0.2-1.3); Blood Urea Nitrogen 20 mg/dL (9-20); Calcium 8.8 mg/dL (8.4-10.2); Carbon Dioxide 31 mmol/L (22-30); Chloride 108 mmol/L (98-107); Estimated Glomerular Filt Rate > 60; Glucose 109 mg/dL (65-110); Potassium 3.9 mmol/L (3.4-5.0); Sodium 146 mmol/L (137-145)
[2022-05-17 13:32] LABS: Prostate Specific Antigen 30.2 ng/mL (< OR = 4.0)
[2022-05-17 13:41] LABS: Iron 70 ug/dL (49-181)
[2022-05-17 13:54] LABS: Percent Iron Saturation 24 % (20-50)
[2022-05-17 14:20] LABS: Hemoglobin A1C 5.6 % (<5.7)
== END 2022-05-17 09:38 | disposition home or self-care (01) ==
PROVIDERS: PCP Physician Assistant; Visit Provider Internal Medicine Hematology & Oncology
DX: E78.5 Hyperlipidemia, unspecified (principal); R73.09 Other abnormal glucose; D64.9 Anemia, unspecified; C61 Malignant neoplasm of prostate
CPT/HCPCS: 36415; 80053; 80061; 82607; 82728; 83036; 83540; 83550; 84153; 85025; J2704

== ENCOUNTER 2022-05-29 00:38 | Day surgery (SDC) | payer MEDICARE, SELFPAY ==
--- NOTE | 2022-05-24 14:19 | PC.NURSE ---
Report to the Outpatient Waiting Room, entrance under the green pavilion located off [facility], at time __1000 on date _05/29/22 . OR Time: 1200 . - You and your visitor will be asked a series of questions to screen for COVID 19 for your protection. - Only one visitor is allowed at this time. - The patient visitor is requested to leave or wait in car when not with patient. - A mask is required within the hospital. Patients may have clear liquids (water, carbonated beverages, clear teas, apple juice) until 3 hours prior to surgery with a maximum of 20 ounces. - No food from midnight until time of surgery - Infants may have breast milk until 4 hours before surgery, infant formula 6 hours prior to surgery. - Children will be allowed to drink immediately following surgery. If applicable, please bring a bottle or sippy cup to assist with drinking. Juice, water, soda, and popsicles are readily available. For infants on formula, please bring formula the day of surgery. Pacifiers are allowed. Take the following medications with a SIP of water the morning of surgery: __ABIRATERONE,MORPHINE,PREDNISONE Medications to discontinue per physician ____ALL VITAMINS AND SUPPLEMENTS 3 DAYS PRE OP Date to take last dose___05/25/22 Please no make-up, nail ecuadorean, hairspray, perfume, deodorant, or body powder the day of surgery. No jewelry (including any body piercings) or valuables the day of surgery, leave them at home. Please take a shower or bath the night before, or the morning of, surgery with an antibacterial soap. Wear comfortable, loose fitting clothing. Children are encouraged to wear pajamas. - Jewelry must be removed prior to entering the operating room. Rings and piercings that are not removed may be cut off. - The hospital will not accept responsibility for valuables. - Please leave all valuables, including medications, at home the day of surgery. If you are going home after surgery, a licensed sulky driver must drive you home. - NO public transportation without another adult. - We recommend that an adult stay with you for 24 hours following discharge. - We also recommend that you do not drive, make important decision, drink alcoholic beverages, or take any drugs that were not prescribed by your health care provider for at least 24 hours after your discharge time. For Pediatric surgeries, we recommend two adults accompany the child home (only one inside the building at this time). Follow any additional instructions given to you from your surgeon. If you or anyone in your household have experienced Covid symptoms in the past week, please notify your surgeon or the nurse liaison at the phone number below for possible testing. Telephone instructions given to __PATIENT and asked if any additional questions and then verbalized understanding. Patient advised to call surgeon office or pre surgery nurse liaison [phone] if any additional questions.
[2022-05-24 14:25] VITALS: BMI 39.7
[2022-05-29] VITALS (7 sets, daily range): BP systolic 124–172; BP diastolic 60–78; PULSE 61–73; RESP 18–24; TEMP 36.3–36.4; O2SAT 93–98
--- NOTE | ~2022-05-29 | XR_ITS ---
EXAMINATION: XR chest port-a-cath/central INDICATION: Port-A-Cath insertion TECHNIQUE: Portable AP chest at 1304 hours COMPARISON: 04/05/2022 FINDINGS: A left internal jugular Port-A-Cath has been inserted which ends with its tip in the brachi ocephalic vein. The lungs are free of acute opacities. No pleural effusion or pneumothorax. The cardi omediastinal silhouette is stable. IMPRESSION: 1. Left internal jugular Port-A-Cath ending with its tip in the brachiocephalic vein. Reviewed, dictated and finalized at location B.
--- NOTE | ~2022-05-29 | XR_ITS ---
EXAMINATION: XR fl guide central line place DATE: 05/29/2022 12:50 INDICATION: Port catheter insertion TECHNIQUE: 2 fluoroscopic images of the central chest were obtained during procedure performed by Dr. Ring. Radiologist was not present for the imaging or procedure. The amount of fluoroscopy time used during this procedure was 1.9 minutes. COMPARISON: None. FINDINGS/IMPRESSION: Left internal jugular central venous catheter with distal tip extending to the caudal superior vena c kenrick below the level of the siobhan. See procedure note for further detail. Reviewed, dictated and finalized at location A.
--- NOTE | 2022-05-29 10:49 | PM.IMHP ---
H&P: HPI History of Present Illness Date/Time: 05/29/22 10:49 Chief Complaint: metastatic prostate cancer Narrative: Pt is a 71 y/o M presenting for VAD placement. Pt c metastatic prostate cancer and needs access for chemotherapy. Pt denies any previous central venous catheterization. Review of Systems Review of Systems: All systems reviewed & are unremarkable except as noted in HPI and below PMFSH Past Medical History Medical History Bone metastasis Kidney stones Obstructive sleep apnea Prostate cancer Surgical History Surgical History H/O umbilical hernia repair Family History Family History Mother Family history of malignant neoplasm of breast in first degree relative Carcinoma of colon Father Family history of Parkinson's disease Social History Social History Smoking status: Never smoker Second hand tobacco smoke exposure: Yes Alcohol intake: never Substance use: never Living arrangements: with family Spiritual care concerns: No Meds Home Medications and Allergies Home Medications Medication Instructions Recorded Confirmed Type magnesium oxide 800 mg PO DAILY 08/24/19 05/24/22 History calcium carb,cit 300 mg-D3 200 1 tablet PO DAILY 10/31/20 05/24/22 History unit-min no.34-genistein 13.5 mg tablet (Citracal Plus Bone Density Builder) leuprolide 3.75 mg intramuscular 3.75 mg IM MONTHLY 10/31/20 05/24/22 History syringe kit (Lupron Depot) vitamin K2 40 mcg tablet 40 mcg PO DAILY 10/31/20 05/24/22 History ferrous sulfate 325 mg (65 mg 650 mg PO DAILY 07/10/21 05/24/22 History iron) tablet (FeroSul) hydrocodone 10 mg-acetaminophen 1 tablet PO Q4H PRN Pain 07/10/21 05/24/22 History 325 mg tablet ibuprofen 800 mg tablet 800 mg PO Q6H PRN pain 07/10/21 05/24/22 History morphine 15 mg tablet,extended 15 mg PO Q12H 07/10/21 05/24/22 History release abiraterone 250 mg tablet 4 tablet PO QAM 04/05/22 05/24/22 History prednisone 5 mg tablet 1 tablet PO DAILY 04/05/22 05/24/22 History losartan 50 mg tablet 50 mg PO DAILY 05/24/22 05/24/22 History Allergies Allergy/AdvReac Type Severity Reaction Status Date / Time No Known Allergies Allergy Unknown . Verified 05/24/22 14:09 Exam Const: General: cooperative, comfortable and no acute distress Nutritional Appearance: obese Orientation/consciousness: patient oriented x3 Neck: Neck: normal visual inspection, full ROM and no lymphadenopathy Chest: Chest palpation & inspection: normal inspection of the chest Resp: Effort & Inspection: normal respiratory effort Auscultation: clear to auscultation bilaterally Cardio: Rate: regular rate Rhythm: regular rhythm GI: Inspection: normal to inspection Assessment and Plan Assessment and plan (1) Prostate cancer: Code(s): C61 - Malignant neoplasm of prostate Status: Acute Assessment and Plan: will setup for VAD access (2) Morbid obesity with BMI of 50.0-59.9, adult: Code(s): E66.01 - Morbid (severe) obesity due to excess calories; Z68.43 - Body mass index [BMI] 50.0-59.9, adult Status: Acute Assessment and Plan: dietary and lifestyle modifications (3) Obstructive sleep apnea: Code(s): G47.33 - Obstructive sleep apnea (adult) (pediatric) Status: Acute Assessment and Plan: increased surgical risk, anesthesia aware
--- NOTE | 2022-05-29 10:55 | WPDHPUPDATE1 ---
History and Physical Update Update Date/Time: 05/29/22 10:55 History and Physical has been reviewed, including an updated exam of the patient. There are NO changes in the patient's condition. Risks, benefits, and alternatives have been discussed and questions answered. Patient agrees to proceed with procedure.
--- NOTE | 2022-05-29 11:01 | P.PNAN_ITS ---
Anes - Initial Pre Proc Eval Procedure: Operation Date: 05/29/22 12:00 Proposed Procedures p Insertion Gabriela Cath - Sonam Ring MD Date/Time: 05/29/22 11:01 Surgeon: Sonam Ring MD Pre Op Diagnosis: Prostate Ca Patient Data Age: 71 Gender: M Height: 1.8 m Weight: 129.3 kg Allergies Allergy/AdvReac Type Severity Reaction Status Date / Time No Known Allergies Allergy Unknown . Verified 05/24/22 14:09 Home Medications Medication Instructions Recorded Confirmed Type magnesium oxide 800 mg PO DAILY 08/24/19 05/24/22 History calcium carb,cit 300 mg-D3 200 1 tablet PO DAILY 10/31/20 05/24/22 History unit-min no.34-genistein 13.5 mg tablet (Citracal Plus Bone Density Builder) leuprolide 3.75 mg intramuscular 3.75 mg IM MONTHLY 10/31/20 05/24/22 History syringe kit (Lupron Depot) vitamin K2 40 mcg tablet 40 mcg PO DAILY 10/31/20 05/24/22 History ferrous sulfate 325 mg (65 mg 650 mg PO DAILY 07/10/21 05/24/22 History iron) tablet (FeroSul) hydrocodone 10 mg-acetaminophen 1 tablet PO Q4H PRN Pain 07/10/21 05/24/22 H istory 325 mg tablet ibuprofen 800 mg tablet 800 mg PO Q6H PRN pain 07/10/21 05/24/22 History morphine 15 mg tablet,extended 15 mg PO Q12H 07/10/21 05/24/22 History release abiraterone 250 mg tablet 4 tablet PO QAM 04/05/22 05/24/22 History prednisone 5 mg tablet 1 tablet PO DAILY 04/05/22 05/24/22 History losartan 50 mg tablet 50 mg PO DAILY 05/24/22 05/24/22 History Patient hx anesthesia problems: none Family hx anesthesia problems: none Results Review: All pre-operative results and documents have been reviewed as part of the pre- operative evaluation. PENDING SALE TO [facility] Past Medical History Medical History Bone metastasis Kidney stones Obstructive sleep apnea Prostate cancer Surgical History Surgical History (Updated 05/29/22 @ 11:01 by Vasyl Thakkar MD) H/O umbilical hernia repair Hx of cystoscopy Family History Family History Mother Family history of malignant neoplasm of breast in first degree relative Carcinoma of colon Father Family history of Parkinson's disease Social History Social History Smoking status: Never smoker Second hand tobacco smoke exposure: Yes Alcohol intake: never Substance use: never Living arrangements: with family Spiritual care concerns: No Anes - Eval Final PreProcedure Day of Procedure 05/29/22 11:01 Patient weight: morbidly obese Heart: regular rate and rhythm Lungs: clear to auscultation Airway: Mallampati scale class III Neurological: alert and oriented ASA classification: III Emergent: no Anesthetic plan: proceed Anesthesia type and monitoring: general LMA and standard monitoring Results Review: All pre-operative results and documents have been reviewed as part of the pre- operative evaluation. Informed Consent: The patient's anesthetic plan and its attendant risks and benefits were discussed with the patient/family/POA. Questions were solicited and answers provided to the satisfaction of the patient/family/POA.
[2022-05-29] MEDS: LACTATED RINGERS 1,000 ML 30 ML IV CONT (11:25)
[2022-05-29] MEDS: KETOROLAC 15 MG/ML VIAL (*BKC) IV PUSH (11:28)
[2022-05-29] MEDS: ceFAZolin 3 GM/D5W 100 ML 100 ML IVPB (12:03)
[2022-05-29] MEDS: HEPARIN SODIUM 5,000 UNITS/ML VIAL 5000 UNITS IRRIGATION (12:31)
[2022-05-29] MEDS: BUPIVACAINE/EPINEPHRINE 0.25% 50 ML VIAL INFILTRATE (12:38)
[2022-05-29] MEDS: HEPARIN SODIUM, PORCINE 10,000 UNITS/10 ML VIAL 10000 UNITS IV PUSH (12:39)
--- NOTE | 2022-05-29 13:00 | W.PM.PROC2 ---
Procedure Note - Detailed Date of Procedure 05/29/22 Pre-op Diagnosis Prostate Ca Post-op Diagnosis Same Procedure Performed Placement of left internal jugular venous access device under both ultrasound and fluoroscopic guidance Surgeon Sonam Ring MD Anesthesia General and Local Indications 71-year-old male with metastatic prostate cancer needing access for adjuvant chemotherapy Findings 1st stick left IJ Description of Procedure Patient was brought into the operating room and placed in the supine position. After adequate induction of general anesthesia, the patient was prepped and draped in normal sterile fashion. Time-out was then done to verify the patient's identity, as well as the procedure being performed. I began by making a small incision in the left chest. I then used the ultrasound to gain access into the left internal jugular vein. Once access was gained, I placed the guidewire in the vein and confirmed proper positioning. I then locally anesthetized the area in the left chest. I then enlarged the incision including making a subcutaneous pocket inferiorly to allow placement of the port itself. I proceeded to tunnel the catheter from the chest to the left neck insertion site. I then placed a dilating sheath over the guidewire into the left internal jugular vein via sterile Seldinger technique. This was once again done and confirmed via fluoroscopic guidance. I then removed the dilator and the guidewire, now just leaving the sheath in the vein. I then fed the previously flushed catheter into the left internal jugular vein under fluoroscopic guidance. At approximately 35 cm, the catheter was noted to be near the atrial caval junction. I then peeled away the sheath, now just leaving the catheter in the vein. I then was able to easily draw and flush from the catheter. The catheter was cut to fit and attached to the port itself. The port was placed into the previously made subcutaneous pocket and sutured in with 0 Ethibond suture. Final fluoroscopic view showed the termination of the catheter at the atrial caval junction with a nice smooth curvature back to the port itself. I was able to gain access to the port with a Betancourt needle and was able to easily draw and flush from the port. I then flushed 4 cc of a final heparin flush into the port. The incision was closed with 3 0 Vicryl suture in the subcutaneous tissue and the skin was closed with 4 O Monocryl subcuticular suture. Dermabond was then placed on wound. The patient tolerated the procedure well and will be sent to the recovery room in stable condition. Implants left internal jugular venous access device Estimated Blood Loss 5 Pathology None sent Complications No immediate complications Condition Stable Disposition PACU [facility] Billing Surgery - Charge Forward: Surgery Billing
== END 2022-05-29 14:35 | disposition home or self-care (01) ==
PROVIDERS: PCP Physician Assistant; Visit Provider Surgery
PROC: (CPT 36561; principal; 2022-05-29 12:00)
DX: C61 Malignant neoplasm of prostate (principal); C79.51 Secondary malignant neoplasm of bone; G47.33 Obstructive sleep apnea (adult) (pediatric); E66.01 Morbid (severe) obesity due to excess calories; Z68.41 Body mass index [BMI] 40.0-44.9, adult
CPT/HCPCS: 36561; 77001; C1788; J0690; J1644; J1885; J2250; J2704; J3010; J7030; J7120

== ENCOUNTER 2022-06-03 18:06 | Outpatient (CLI) | payer MEDICARE, SELFPAY ==
--- NOTE | ~2022-06-03 | CT_ITS ---
EXAMINATION: CT brain wo/w con DATE: 06/03/2022 18:52 INDICATION: Lightheadedness. TECHNIQUE: Computed tomography (CT) of the head was performed without and with 100 mL Omnipaque 350 i ntravenous contrast. The mA was adjusted according to patient size. Iterative reconstruction techniqu e was employed. The dose-length product was 1362.00 mGy-cm. COMPARISON: Head CT 04/05/2022 FINDINGS: There are scattered areas of low attenuation in the cerebral white matter. There is no intr acranial hemorrhage, acute infarction, or abnormal intracranial mass lesion. The ventricles are esteban l in size. There are likely changes of ocular lens replacement surgeries. There is mild mucosal thick ening in the paranasal sinuses. The mastoid air cells are normal. IMPRESSION: 1. Stable moderate nonspecific cerebral white matter disease, which likely represents chronic small v essel ischemic disease. Reviewed, dictated and finalized at location A. IMPRESSION: 1. Stable moderate nonspecific cerebral white matter disease, which likely repr esents chronic small vessel ischemic disease.
== END 2022-06-03 18:07 | disposition home or self-care (01) ==
PROVIDERS: PCP Physician Assistant; Visit Provider Internal Medicine Hematology & Oncology
DX: R42 Dizziness and giddiness (principal); R93.0 Abnormal findings on diagnostic imaging of skull and head, not elsewhere classified
CPT/HCPCS: 70470; Q9967

== ENCOUNTER 2022-07-22 13:26 | Emergency (ER) | payer MEDICARE, SELFPAY ==
[2022-07-22 13:33] VITALS: BP 165/91; PULSE 78; RESP 14; TEMP 36.7; O2SAT 96
[2022-07-22] MEDS: methylPREDNISolone SOD SUCC 125 MG VIAL IM (14:39)
--- NOTE | 2022-07-22 14:47 | ED.ALLEREA ---
HPI - Allergic Reaction General Chief complaint: Allergic Reaction Stated complaint: facial swelling Time Seen by Provider: 07/22/22 14:16 History of Present Illness HPI narrative: Pt noticed some itching to his face a couple of days ago and then he noted that it started swelling and became red. Pt denies pain but says it still itches. Pt denies trouble swallowing or SOB. Pt getting chemo for CA and went to see dr napier who sent him to ED for eval. Pt not aware of any exposures or new soaps meds or detergents. Pt had last chemo over a week ago. Related Data Home Medications Medication Instructions Recorded Confirmed magnesium oxide 800 mg PO DAILY 08/24/19 07/15/22 calcium carb,cit 300 mg-D3 200 1 tablet PO DAILY 10/31/20 07/15/22 unit-min no.34-genistein 13.5 mg tablet (Citracal Plus Bone Density Builder) leuprolide 3.75 mg intramuscular 3.75 mg IM MONTHLY 10/31/20 07/15/22 syringe kit (Lupron Depot) vitamin K2 40 mcg tablet 40 mcg PO DAILY 10/31/20 07/15/22 ibuprofen 800 mg tablet 800 mg PO Q6H PRN pain 07/10/21 07/15/22 morphine 15 mg tablet,extended 15 mg PO Q12H 07/10/21 07/15/22 release prednisone 5 mg tablet 5 mg PO DAILY 04/05/22 07/15/22 losartan 50 mg tablet 50 mg PO DAILY 05/24/22 07/15/22 denosumab 120 mg/1.7 mL (70 mg/mL) 120 mg subcut MONTHLY 06/17/22 07/15/22 subcutaneous solution (Xgeva) dexamethasone 4 mg tablet See Rx Instructions .Route .COMPLEX 06/17/22 07/15/22 methylcellulose (laxative) 500 mg 500 mg PO DAILY 06/17/22 07/15/22 tablet ondansetron 8 mg disintegrating 8 mg PO Q8H PRN Nausea 06/17/22 07/15/22 tablet potassium chloride 10 mEq 20 meq PO DAILY 06/17/22 07/15/22 tablet,extended release(part/cryst) Allergies Allergy/AdvReac Type Severity Reaction Status Date / Time No Known Allergies Allergy Unknown . Verified 07/15/22 11:38 Review of Systems Review of Systems: All systems reviewed & are unremarkable except as noted in HPI and below PMFSH Past Medical History Medical History (Updated 07/22/22 @ 14:58 by Allison Salvador III, DO) Bone metastasis Kidney stones Obstructive sleep apnea Prostate cancer Surgical History Surgical History (Updated 05/29/22 @ 11:01 by Vasyl Thakkar MD) H/O umbilical hernia repair Hx of cystoscopy Family History Family History Mother Family history of malignant neoplasm of breast in first degree relative Carcinoma of colon Father Family history of Parkinson's disease Social History Social History Smoking status: Never smoker Second hand tobacco smoke exposure: Yes Alcohol intake: never Substance use: never Spiritual care concerns: No Exam Const: General: healthy appearing Nutritional Appearance: well nourished Orientation/consciousness: patient oriented x3 Limitations: no limitations HENMT: Head: normal to inspection (redness and swelling to face but no obvious infection or abscess) Mouth: Yes moist mucous membranes Throat: posterior oropharynx normal Other: redness and swelling to face no abscess or drainiage Eyes: Conjunctivae: conjunctivae normal EOM: EOMs intact bilaterally Resp: Effort & Inspection: normal respiratory effort Auscultation: clear to auscultation bilaterally Cardio: Rate: regular rate Rhythm: regular rhythm GI: GI Palp: Yes Soft to palpation Auscultation: normal bowel sounds Skin: General skin exam: normal color Rashes: no rashes Neuro: General: patient oriented x3 Speech: normal speech Extrem: General: normal to inspection Psych: Mental Status: mental status grossly normal Affect: normal affect Attitude: cooperative Course Course Emergency Course: d/w dr ornelas, said not likely chemo reaction. would prefer IM steroid shot and will start on antibiotics to be safe Vital Signs Vital signs: Vital Signs Temperature 98.0 F 07/22/22 13:33 Pu
[2022-07-22 15:01] VITALS: BP 144/86; PULSE 86; RESP 16; O2SAT 98
== END 2022-07-22 15:03 | disposition home or self-care (01) ==
PROVIDERS: Emergency Provider Emergency Medicine; PCP Physician Assistant
DX: T78.40XA Allergy, unspecified, initial encounter (principal); C79.51 Secondary malignant neoplasm of bone; C61 Malignant neoplasm of prostate; G47.33 Obstructive sleep apnea (adult) (pediatric); Z87.442 Personal history of urinary calculi; Z79.899 Other long term (current) drug therapy
CPT/HCPCS: 96372; 99283; J2930

== ENCOUNTER 2022-09-25 13:50 | Outpatient (CLI) | payer MEDICARE, SELFPAY ==
--- NOTE | ~2022-09-25 | DEXA_ITS ---
Bone Density Report Name: HAO KNOWLES Age: 71 Sex: Male Ethnicity: White Date of : 1950 Indication: screening for osteoporosis; parental hip fracture; height loss; history of glucocorticoids; cancer; Referring Provider: MIYA BONILLA Study: Bone densitometry was performed. Exam Date: September 25, 2022 Accession number: [id number] Bone Density: Region BMD T-score Z-score Classification AP Spine(L1-L4) 1.774 6.2 7.1 Normal Femoral Neck (Left) 0.965 0.3 1.5 Normal Total Hip (Left) 1.275 1.6 2.3 Normal Femoral Neck (Right) 0.882 -0.4 0.9 Normal Total Hip (Right) 1.234 1.3 2.0 Normal Total Hip Mean 1.255 1.5 2.2 Normal World Health Organization criteria for BMD impression classify patients as: Normal (T-score at or above -1.0), Osteopenia (T-score between -1.0 and -2.5), or Osteoporosis (T-score at or below -2.5). 10-year Fracture Risk: FRAX not reported because: All T-scores for Spine Total, Hip Total, Femoral Neck at or above -1.0 Clinical Information Provided by Patient: Parent has had a hip fracture Has taken Glucocorticoids Has used the following medications: Vitamin D, Calcium Has the following medical conditions: Cancer Patient maximum height was 71 No regular weight bearing exercise Does not regularly consume dairy products Drinks caffeinated beverages Impression: The patient has normal bone mass. The patient has risk factors, including: parental hip fracture, history of glucocorticoid therapy. Discussion: BONE DENSITY IS ABOVE THE MINIMUM DESIRABLE LEVEL AT ALL SKELETAL SITES TESTED. This patient?s bone mineral density is above the minimum desirable level (T-score -1.0 or better) at all sites measured. The patient should follow a healthful lifestyle (good nutrition with adequate calcium and vitamin D, and appropriate weight-bearing exercise). Follow-Up: Consider repeating this study in 5 years or sooner if there is some new clinical indication. Reported by: RAMA on 09/25/2022 2:19:00 PM. Reviewed, dictated and finalized at location A. [facility]
== END 2022-09-25 13:51 | disposition home or self-care (01) ==
PROVIDERS: PCP Physician Assistant; Visit Provider Internal Medicine Hematology & Oncology
DX: M85.89 Other specified disorders of bone density and structure, multiple sites (principal)
CPT/HCPCS: 77080

== ENCOUNTER 2022-11-12 12:23 | Outpatient (CLI) | payer MEDICARE, SELFPAY ==
--- NOTE | ~2022-11-12 | CT_ITS ---
EXAMINATION: CTA chest PE protocol DATE: 11/12/2022 13:07 INDICATION: Dyspnea. TECHNIQUE: Computed tomography angiography (CTA) of the chest was performed with 100 mL Omnipaque-350 intravenous contrast timed to evaluate the pulmonary arteries. Coronal maximum intensity projection 3D-reconstructions were created by the technologist. Automated exposure control and iterative reconst ruction technique were employed. The dose-length product was 1062.48 mGy-cm. COMPARISON: Chest CT 04/10/2022 FINDINGS: The lungs demonstrate mild atelectasis. No pleural effusion. Cardiomegaly is noted. There a re calcifications of aortic valve. There are coronary artery calcifications. No pericardial effusion. There is no pulmonary embolus. There is a left internal jugular port with tip in right atrium. There is widespread sclerosis of the bones. There is mild chronic height loss of multiple vertebral bodies . IMPRESSION: 1. No pulmonary embolus. 2. Stable widespread sclerosis of the bones, consistent with metastatic disease. Reviewed, dictated and finalized at location A. [employer] IMPRESSION: 1. No pulmonary embolus. 2. Stable widespread sclerosis of the bones, consistent with metastatic disease .
[2022-11-12 13:02] LABS: Estimated Glomerular Filt Rate > 60
== END 2022-11-12 12:24 | disposition home or self-care (01) ==
PROVIDERS: PCP Physician Assistant; Visit Provider Physician Assistant
DX: R06.00 Dyspnea, unspecified (principal)
CPT/HCPCS: 71275; Q9967

== ENCOUNTER 2023-02-19 12:47 | Outpatient (CLI) | payer MEDICARE, SELFPAY ==
--- NOTE | ~2023-02-19 | PE_ITS ---
EXAMINATION: PET_PETPSMAST_PT DATE: 02/19/2023 15:23 INDICATION: Prostate cancer, metastatic to bone. TECHNIQUE: 9.44 mCi of pipflufolastat F-18 (18-F-DCFPyL) was administered i.v. Low dose computed meir ography (CT) images were acquired from the base of the brain to the base of the brain to the proximal thighs for attenuation correction and anatomic localization. Positron emission tomography (PET) imag es were acquired in the same distribution beginning 97 minutes after injection. Images including fuse d PET/CT images were reconstructed in axial, coronal, and sagittal planes. Automated exposure control technique was employed. The dose-length product was 1184.95mGy-cm. COMPARISON: CT chest dated 11/12/2022 and bone scan dated 04/10/2022 FINDINGS: Head/neck: Typical pattern of symmetric physiologic increased activity in the lacrimal, parotid and submandibula r glands as well as along the mucosa of the nasal and oral cavities, the mara-, naso- and hypopharynx, the glottis and esophagus. No pathologically enlarged cervical lymphadenopathy or suspicious foci of increased uptake in the visualized head or neck. Chest: Mild dependent and basilar atelectasis in the lower lobes. No suspicious pulmonary nodules, pneumonia , pulmonary edema or pleural effusion. Cardiomegaly. Atherosclerotic coronary artery calcification. N o pericardial effusion. Thoracic aorta is normal in caliber. Left internal jugular central venous por t catheter with distal tip at the high right atrium. No pathologically enlarged thoracic or PSMA avid lymphadenopathy. Abdomen/pelvis/proximal thighs: Physiologic renal accumulation and excretion of activity in the kidneys, bladder and along portions o f ureters. Status post prostatectomy. Normal degree and slightly heterogenous pattern of increased up take throughout the liver and spleen without radiologic correlate or dominant PSMA avid lesion. The g allbladder, pancreas and bilateral adrenal glands are normal. Moderate uptake scattered throughout th e bowels with typical duodenal and proximal jejunal predominance and without radiologic correlate, al so likely physiologic. No other abnormal foci of increased soft tissue uptake or pathologically enlar ged lymphadenopathy in the abdomen, pelvis or proximal thighs. Musculoskeletal: Numerous scattered foci of intense PSMA neck uptake throughout the axial and appendicular skeleton. T his includes multiple lesions in the skull and maxillofacial bones, throughout the spine, sternum and ribs and. There are also multiple lesions in the long bones of the upper and lower extremities, and the pelvis and in the bilateral clavicles and scapulae with corresponding sclerosis on CT imaging. 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 IMPRESSION: 1. Widespread intensity PET PSMA avid bone lesions with corresponding sclerosis throughout the axial and appendicular skeleton consistent with widespread metastatic prostate cancer. 2. No evident metastatic disease in the lungs, lymph nodes or other soft tissues. Reviewed, dictated and finalized at location A. IMPRESSION: 1. Widespread intensity PET PSMA avid bone lesions with corresponding sclerosis throughout the axial and appendicular skeleton consistent with widespread meta static prostate cancer. 2. No evident metastatic disease in the lungs, lymph nodes or other soft tissue s.
== END 2023-02-19 12:48 | disposition home or self-care (01) ==
PROVIDERS: PCP Physician Assistant; Visit Provider Internal Medicine Hematology & Oncology
DX: C61 Malignant neoplasm of prostate (principal); C79.51 Secondary malignant neoplasm of bone
CPT/HCPCS: 78815; A9595

== ENCOUNTER 2023-05-15 09:34 | Outpatient (CLI) | payer MEDICARE, SELFPAY ==
[2023-05-15 12:43] LABS: Cholesterol 188 mg/dL (0-200); HDL Direct 38 mg/dL; Triglycerides 194 mg/dL (<150)
[2023-05-15 12:55] LABS: LDL Cholesterol Direct 87 mg/dL
[2023-05-15 12:58] LABS: Free T4 Free Thyroxine 0.95 ng/mL (0.78-2.19)
[2023-05-15 13:04] LABS: Hemoglobin A1C 5.7 % (<5.7)
== END 2023-05-15 09:35 | disposition home or self-care (01) ==
LOC: ANHLAB 09:35
PROVIDERS: PCP Physician Assistant; Visit Provider Physician Assistant
DX: E78.5 Hyperlipidemia, unspecified (principal); R73.09 Other abnormal glucose; Z79.899 Other long term (current) drug therapy
CPT/HCPCS: 36415; 80061; 83036; 84439; 84443

== ENCOUNTER 2023-08-18 07:57 | Outpatient (CLI) | payer MEDICARE, SELFPAY ==
--- NOTE | ~2023-08-18 | NM_ITS ---
EXAMINATION: NM bone scan whole body DATE: 08/18/2023 11:23 INDICATION: Metastatic prostate cancer TECHNIQUE: 24.5 mCi Tc-99m HDP was administered intravenously. Delayed whole-body scintigrams were o btained. COMPARISON: Bone scan dated 04/10/2022 and PET/CT dated 02/19/2023 FINDINGS: Again seen are multiple scattered foci of increased bone uptake throughout the axial and appendicular skeleton consistent with widespread osseous metastatic disease. Many of these lesions appear unchang ed since the prior study. There are however a few lesions which are either new or which have increase d in size since the prior study consistent with progression of disease. For reference there is a new prominent focus of increased uptake at the anterior left fourth rib and a new focus of uptake at the proximal right femur. There is also been increase in the length of a more subtle region of increased uptake along the posterior right ninth rib. Degrees in the prior prominent uptake along the right man dible likely reflecting changes of healing associated with a plate and screw fixation. IMPRESSION: 1. Interval progression of widespread osseous metastatic disease. Of note the extent of disease is si gnificantly underestimated relative to the more sensitive intervening PSMA PET/CT dated 02/19/2023. Reviewed, dictated and finalized at location A. IMPRESSION: 1. Interval progression of widespread osseous metastatic disease. Of note the e xtent of disease is significantly underestimated relative to the more sensitive intervening PSMA PET/CT dated 02/19/2023.
== END 2023-08-18 07:58 | disposition home or self-care (01) ==
PROVIDERS: PCP Physician Assistant; Visit Provider Internal Medicine Hematology & Oncology
DX: C61 Malignant neoplasm of prostate (principal); C79.51 Secondary malignant neoplasm of bone
CPT/HCPCS: 78306; A9503

== ENCOUNTER 2023-10-16 13:31 | Outpatient (CLI) | payer MEDICARE, SELFPAY ==
--- NOTE | ~2023-10-16 | PE_ITS ---
EXAMINATION: PET_PETPSMAST_PT DATE: 10/16/2023 15:52 INDICATION: Secondary malignant neoplasm of bone . Prostate cancer. TECHNIQUE: 8.859 mCi of pipflufolastat F-18 (18-F-DCFPyL) was administered i.v. Low dose computed to mography (CT) images were acquired from the base of the brain to the base of the brain to the proxima l thighs for attenuation correction and anatomic localization. Positron emission tomography (PET) eri ges were acquired in the same distribution beginning 94 minutes after injection. Images including fus ed PET/CT images were reconstructed in axial, coronal, and sagittal planes. Automated exposure contro l technique was employed. The dose-length product was 1289.19mGy-cm. COMPARISON: 02/19/2023 FINDINGS: Musculoskeletal: Again seen are numerous scattered foci of intense PSMA uptake throughout the axial and appendicular s keleton including the skull and maxillofacial bones, throughout the spine, sternum, ribs, pelvis, the scapulae and clavicles and long bones of the upper and lower extremities. Many of these demonstrate corresponding sclerotic lesions on the CT images. There are a few new lesions, for reference includin g a small lesion with maximal SUV of 23.3 at the lateral side of the right iliac crest which is new s jose angel the prior study. There has been decrease in degree of uptake associated with a few lesions such as in the proximal metadiaphyseal region of the left humerus were the PSMA activity has decreased fro m maximal SUV of 19.6 to currently measuring 4.0. Several of the lesions have increased the degree of PSMA uptake, for reference the distalmost fusion in the left humerus has increased uptake from maxim al SUV of 4.6 to currently 10.9. Overall the total osseous burden of disease does not appear signific antly changed. Head/neck: Typical pattern of symmetric physiologic increased activity in the lacrimal, parotid and submandibula r glands as well as along the mucosa of the nasal and oral cavities, the mara-, naso- and hypopharynx, the glottis and esophagus. There is also a typical pattern of symmetric tiny foci of mild likely phy siologic neural ganglia uptake at a few bilateral cervical neural foramina. No pathologically enlarge d cervical lymphadenopathy or suspicious foci of increased uptake in the visualized head or neck. The re is a small focus of moderate increased uptake with maximal SUV of 16.2 in the right frontal region which appears slightly deeper than the calvarium suspicious for metastatic brain lesion but without correlate on CT. This region is not included on the field of view of the prior imaging and it is uncl ear whether this is a new lesion. Chest: Left internal jugular central venous port catheter with distal tip near the superior cavoatrial junct ion. Small left pleural effusion with associated mild compressive atelectasis in the posterior left l ower lobe. No pneumonia, pulmonary edema or PSMA avid lung lesions. Cardiomegaly. Atherosclerotic cor onary artery calcifications. No pericardial effusion. Thoracic aorta is normal in caliber. No patholo gically enlarged or PSMA avid thoracic lymphadenopathy. Abdomen/pelvis/proximal thighs: Physiologic renal accumulation and excretion of activity in the kidneys, bladder and along portions o f ureters. Status post prostatectomy with no lesions discrete from the urine activity in the bladder to suggest residual/locally recurrent disease. Normal degree and slightly heterogenous pattern of inc reased uptake throughout the liver and spleen without radiologic correlate or dominant PSMA avid lesi on. The gallbladder, pancreas and bilateral adrenal glands are normal. Moderate uptake scattered thro ughout the bowels with typical duodenal and proximal jejunal predominance and without radiologic jes elate, also likely physiologic. No other abnormal foci of increased uptake or pathologically enlarged lymphadenopathy in the abdomen, pelvis or proxima
== END 2023-10-16 13:32 | disposition home or self-care (01) ==
PROVIDERS: PCP Physician Assistant; Visit Provider Radiology Radiation Oncology
DX: C79.51 Secondary malignant neoplasm of bone (principal); C61 Malignant neoplasm of prostate
CPT/HCPCS: 78815; A9595

== ENCOUNTER 2023-11-10 15:50 | Outpatient (CLI) | payer MEDICARE, SELFPAY ==
--- NOTE | ~2023-11-10 | MR_ITS ---
MRI of the brain Clinical History: Metastatic evaluation Technique: Axial and sagittal T1-weighted images were acquired. These were followed by axial T2-weigh kayden, diffusion weighted, gradient, and FLAIR images. Following intravenous administration of 20 cc Mu ltiHance gadolinium, T1-weighted fat-sat imaging was performed in the axial, coronal, and sagittal pl anes. Correlation made with PSMA PET scan dated 10/16/2023. Findings: There is no acute infarct, intracranial hemorrhage, or intracranial/parenchymal brain mass. There are mild chronic white matter ischemic changes in the periventricular white matter and jesus. Ventricles and subarachnoid spaces are unremarkable. Orbits are unremarkable. Paranasal sinuses and m astoid air cells are clear. Major intracranial flow voids are intact. Sagittal midline structures in the brain are intact. No suspicious postcontrast enhancement identified. IMPRESSION: No significant abnormalities are identified. In particular, no definite imaging correlate seen for th e area of uptake in the lateral right frontal region on the recent PSMA PET scan. 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 Reviewed, dictated and finalized at location M. PRINTER IMPRESSION: No significant abnormalities are identified. In particular, no definite imaging correlate seen for the area of uptake in the lateral right frontal region on t he recent PSMA PET scan. 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
== END 2023-11-10 15:51 | disposition home or self-care (01) ==
PROVIDERS: PCP Physician Assistant; Visit Provider Radiology Radiation Oncology
DX: C61 Malignant neoplasm of prostate (principal); C79.51 Secondary malignant neoplasm of bone; R94.02 Abnormal brain scan
CPT/HCPCS: 70553; A9577

== ENCOUNTER 2024-06-30 12:54 | Outpatient (CLI) | payer MEDICARE, SELFPAY ==
--- NOTE | ~2024-06-30 | PE_ITS ---
EXAMINATION: PET_PETPSMAST_PT DATE: 06/30/2024 15:29 INDICATION: Prostate cancer TECHNIQUE: 4.374 mCi of Illucix Ga-68([id number]) was administered i.v. Low dose computed mark graphy (CT) images were acquired from the base of the brain to the base of the brain to the proximal thighs for attenuation correction and anatomic localization. Positron emission tomography (PET) image s were acquired in the same distribution beginning 92 minutes after injection. Images including fused PET/CT images were reconstructed in axial, coronal, and sagittal planes. Automated exposure control technique was employed. The dose-length product was 1266.03mGy-cm. COMPARISON: None FINDINGS: Musculoskeletal: There are innumerable scattered FDG lesions throughout the visualized bones with associated mixed lyt ic and sclerotic appearance on CT consistent with widespread osseous metastatic disease. Old healed f racture deformity at the bilateral pubic bodies. Head/neck: Typical pattern of symmetric physiologic increased activity in the lacrimal, parotid and submandibula r glands as well as along the mucosa of the nasal and oral cavities, pharynx and hypopharynx. No path ologically enlarged cervical lymphadenopathy or nonosseous suspicious foci of increased uptake in the visualized head or neck. Chest: Moderate-sized unilateral posterior layering left pleural effusion with dependent compressive atelect asis in the left lower lobe and lingula. Right lung remains clear. Mild cardiomegaly. Atherosclerotic coronary artery calcifications. Left internal jugular central venous port catheter with distal tip a t the right atrium. No pericardial effusion. Thoracic aorta is normal in caliber. No pathologically e nlarged or PSMA avid lymphadenopathy. Abdomen/pelvis/proximal thighs: Physiologic renal accumulation and excretion of activity in the kidneys, bladder and along portions o f ureters. Status post prostatectomy. No soft tissue density or abnormal uptake peripheral to the uri nary activity in the bladder to suggest local recurrence. There are a few stones in the dependent micaela dder. Normal degree and slightly heterogenous pattern of increased uptake throughout the liver and sp mesfin without radiologic correlate or dominant PSMA avid lesion. The gallbladder, pancreas and bilater al adrenal glands are normal. Moderate uptake scattered throughout the bowels with typical duodenal a nd proximal jejunal predominance and without radiologic correlate, also likely physiologic. Mild scat tered diverticulosis without adjacent inflammatory stranding to suggest diverticulitis. Normal append ix. No other abnormal foci of nonosseous increased uptake or pathologically enlarged lymphadenopathy in the abdomen, pelvis or proximal thighs. IMPRESSION: 1. Widespread PSV avid mixed lytic and sclerotic bone lesions throughout the axial and appendicular s keleton consistent with widespread osseous metastatic disease. No other evident soft tissue metastase s. Reviewed, dictated and finalized at location A. IMPRESSION: 1. Widespread PSV avid mixed lytic and sclerotic bone lesions throughout the ax ial and appendicular skeleton consistent with widespread osseous metastatic dis ease. No other evident soft tissue metastases.
== END 2024-06-30 12:55 | disposition home or self-care (01) ==
LOC: ANHIMG 12:54
PROVIDERS: PCP Physician Assistant; Visit Provider Internal Medicine Hematology & Oncology
DX: C61 Malignant neoplasm of prostate (principal); M89.9 Disorder of bone, unspecified; J90 Pleural effusion, not elsewhere classified; I25.10 Atherosclerotic heart disease of native coronary artery without angina pectoris; I51.7 Cardiomegaly
CPT/HCPCS: 78815; A9596

== ENCOUNTER 2024-07-27 07:55 | Outpatient (RCR) | payer MEDICARE, SELFPAY ==
[2024-07-27] VITALS (7 sets, daily range): BP systolic 124–161; BP diastolic 50–83; PULSE 55–65; RESP 14–17; TEMP 36.4–36.6; O2SAT 95–97
[2024-07-27 08:52] LABS: Hematocrit 25.7 % (42.0-52.0); Hemoglobin 7.7 g/dL (14.0-18.0)
[2024-07-27] MEDS: ACETAMINOPHEN 325 MG TABLET 650 MG PO (10:19)
[2024-07-27] MEDS: diphenhydrAMINE HCl CAP 25 MG CAPSULE PO (10:20)
== END 2024-10-25 23:59 | disposition home or self-care (01) ==
LOC: ANHCPCTRAN 07:55
PROVIDERS: PCP Physician Assistant; Visit Provider Internal Medicine Hematology & Oncology
DX: C61 Malignant neoplasm of prostate (principal); D64.9 Anemia, unspecified
CPT/HCPCS: 36415; 36430; 85014; 85018; 86850; 86900; 86901; 86920; 86923; A9270; J7050; P9016

== ENCOUNTER 2024-07-29 12:54 | Outpatient (RCR) | payer MEDICARE, SELFPAY ==
[2024-07-29 13:27] VITALS: BMI 34.3
== END 2024-09-15 12:46 | disposition home or self-care (01) ==
LOC: ANHWOC 12:54
PROVIDERS: PCP Physician Assistant; Visit Provider Physician Assistant
DX: Z48.00 Encounter for change or removal of nonsurgical wound dressing (principal); L89.309 Pressure ulcer of unspecified buttock, unspecified stage
CPT/HCPCS: 99213; G0463

== ENCOUNTER 2024-08-27 12:50 | Outpatient (CLI) | payer MEDICARE, SELFPAY ==
--- NOTE | ~2024-08-27 | CT_ITS ---
CLINICAL INDICATION: Intrinsic sphincter deficiency. Personal history of prostate cancer.. COMPARISON: 04/10/2022 and dating back to 09/25/2021. Reference is also made to PET/CT's performed 06/30/2024 and 10/16/2023. TECHNIQUE: An enhanced CT of the abdomen and pelvis was performed utilizing multislice spiral SplashMaps ue reconstructed at 2.5 mm slice thickness. Coronal and sagittal reconstructions were performed. Th is CT examination was performed utilizing dose reduction techniques. DLP: 1321 mGy-cm FINDINGS/OBSERVATIONS: Visualized lower thorax:Large left and trace right-sided pleural effusions within the bilateral lung bases, incompletely evaluated on the current examination. This is unchanged from previous PET CT) int erval change from 04/10/2022 The heart is enlarged without pericardial effusion. Small hiatal hernia is present. Liver: The liver demonstrates homogeneous attenuation and is not enlarged. Gallbladder and biliary system: The gallbladder is decompressed. Pancreas: Fatty atrophy of the pancreas. Further characterization is limited without intravenous cont rast. Spleen: The spleen is not enlarged and demonstrates homogeneous attenuation Kidneys: No hydronephrosis or renal calculi. Adrenal glands: Unremarkable Gastrointestinal tract: Fecal stasis within the colon Rectosigmoid diverticulosis without surrounding inflammatory change. Appendix:The appendix is not definitively visualized. However, no pericecal inflammatory change is id entified suggest the presence of acute appendicitis. Vasculature: Bulky calcifications within the abdominal aorta Lymph nodes: No pathologically enlarged or morphologically suspicious lymph nodes are identified with in the retroperitoneum or the root of the mesentery. Pelvic structures:Bulky calcifications within the base of the bladder, an interval change from PET/CT dated 02/19/2023. The prostate gland is surgically absent. Anastomotic staple line is detected within the urethra, without significant surrounding fluid or infl ammatory change. Body wall and musculoskeletal: Redemonstration of a rounded focus of fluid attenuation anterior to th e right hemipelvis, unchanged dating back to 2020 measuring 3.5 cm in greatest dimension. An additional smaller focus of fluid attenuation is identified within the left peroneal, also unchang ed. Redemonstration of extensive osteoblastic and osteolytic disease with marked sclerosis and expansile bony change with remodeling of the pubic symphysis. No adjacent fluid collections are appreciated. IMPRESSION: Extensive osteoblastic and osteolytic disease with progression of the expansile bony change and remod eling of the pubic symphysis. Redemonstration of bulky calcifications within the bladder. Large left and small right-sided pleural effusions. Reviewed, dictated and finalized at location A. IMPRESSION: Extensive osteoblastic and osteolytic disease with progression of the expansile bony change and remodeling of the pubic symphysis. Redemonstration of bulky calcifications within the bladder. Large left and small right-sided pleural effusions.
== END 2024-08-27 12:51 | disposition home or self-care (01) ==
PROVIDERS: PCP Physician Assistant; Visit Provider Physician Assistant
DX: N36.42 Intrinsic sphincter deficiency (ISD) (principal); J90 Pleural effusion, not elsewhere classified
CPT/HCPCS: 74176

== ENCOUNTER 2024-09-17 07:42 | Outpatient (RCR) | payer MEDICARE, SELFPAY ==
[2024-09-17] VITALS (10 sets, daily range): BP systolic 119–144; BP diastolic 58–73; PULSE 60–68; RESP 18–20; TEMP 36.3–36.9; O2SAT 96–98
[2024-09-17] MEDS: diphenhydrAMINE HCl CAP 25 MG CAPSULE PO (08:32)
[2024-09-17] MEDS: ACETAMINOPHEN 325 MG TABLET 650 MG PO (08:32)
[2024-09-17] MEDS: SODIUM CHLORIDE 0.9% IV 250 ML 30 ML IV CONT (08:40)
[2024-09-17] MEDS: FUROSEMIDE INJ 40 MG/4 ML VIAL 20 MG IV PUSH (11:47)
[2024-09-17] MEDS: HEPARIN SODIUM LOCK FLUSH 500 UNITS/5 ML SYRINGE (15:05)
== END 2024-12-16 23:59 | disposition home or self-care (01) ==
LOC: ANHCPCTRAN 07:42
PROVIDERS: PCP Physician Assistant; Visit Provider Internal Medicine Hematology & Oncology
DX: C61 Malignant neoplasm of prostate (principal); C79.51 Secondary malignant neoplasm of bone; D63.8 Anemia in other chronic diseases classified elsewhere
CPT/HCPCS: 36415; 36430; 86850; 86900; 86901; 86923; 96374; A9270; J1940; J7050; P9016

== ENCOUNTER 2024-09-26 19:00 | Emergency (ER) | payer MEDICARE, SELFPAY ==
--- NOTE | ~2024-09-26 | XR_ITS ---
XR chest 2V DATE: 09/26/2024 19:32 INDICATION: Shortness of breath. History of stage IV cancer TECHNIQUE: PA and lateral views. COMPARISON: 05/29/2022 portable AP chest 11/12/2022 CTA chest FINDINGS: Left internal jugular Port-A-Cath catheter tip overlies the superior vena cava. There is opacification of the lower half of the left hemithorax due to a combination of pleural effus ion and compressive left lower lung atelectasis. Small right pleural effusion. Heart size is not optimally evaluated because the left cardiac margin is obscured by the pleural effu divine. Aortic calcification. No hilar or mediastinal enlargement is noted. IMPRESSION: Large left pleural effusion with associated compressive left lower lung atelectasis Small right pleural effusion Reviewed, dictated and finalized at location A. 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
[2024-09-26 19:02] VITALS: BP 160/76; PULSE 62; RESP 14; TEMP 36.4; O2SAT 96
--- NOTE | 2024-09-26 19:05 | ECG_ITS ---
Test Date: 2024-09-26 19:09:07 Measurements Intervals [place] Rate: 59 P: 19 [place]: 173 QRS: -20 QRSD: 94 T: 60 QT: 378 QTc: 375 Interpretive Statements SINUS BRADYCARDIA WITH FREQUENT VENTRICULAR PREMATURE COMPLEXES DELAYED PRECORDIAL R/S TRANSITION LOW QRS VOLTAGE IN PRECORDIAL LEADS NONSPECIFIC ST & T-WAVE ABNORMALITY- DIFFUSE LEADS BASELINE ARTIFACT- I, II, III, AVR, AVL, AVF, V4-V6 BORDERLINE ECG No previous ECG available for comparison Electronically Signed On 09-27-2024 06:10:29 MANAGER IN TRAINING by Percy Adhikari D.O.
[2024-09-26 19:19] LABS: Basophils Percent Auto 0.3 % (0.2-1.2); Eosinophils Absolute Auto 0.1 K/mm3 (0-0.3); Eosinophils Percent Auto 2.1 % (0-4.4); Hematocrit 30.8 % (42.0-52.0); Hemoglobin 9.9 g/dL (14.0-18.0); Immature Granulocyte Absolute 0.03 K/mm3 (0.00-0.031); Immature Granulocyte Percent A 0.5 % (0-0.5); Lymphocytes Absolute Auto 0.69 K/mm3 (0.9-3.2); Lymphocytes Percent Auto 11.8 % (18.3-44.2); Mean Corpuscular HGB Conc 32.1 g/dl (32-36); Mean Corpuscular Hemoglobin 30.1 pg (26-34); Mean Corpuscular Volume 93.6 fl (80-100); Mean Platelet Volume 8.7 fl (7.4-10.4); Monocytes Absolute Auto 0.4 K/mm3 (0.1-0.6); Monocytes Percent Auto 6.9 % (2.6-8.5); Neutrophils Absolute Auto 4.6 K/mm3 (1.3-6.7); Neutrophils Percent Auto 78.4 % (45.5-73.1); Platelet Count Result 122 k/mm3 (150-375); Red Blood Count 3.29 M/mm3 (4.6-6.20); Red Cell Distribution Width 16.5 % (11.5-14.5); White Blood Count 5.8 K/mm3 (4.5-10.0)
[2024-09-26 19:33] LABS: Alanine Aminotransferase 9 U/L (6-50); Albumin Level 3.7 g/dL (3.5-5.1); Alkaline Phosphatase 94 U/L (38-126); Anion Gap 8 mmol/L (4-12); Aspartate Amino Transferase 37 U/L (17-59); Bilirubin,Total 0.6 mg/dL (0.2-1.3); Blood Urea Nitrogen 21 mg/dL (9-20); Calcium 9.7 mg/dL (8.4-10.2); Carbon Dioxide 30 mmol/L (22-30); Chloride 105 mmol/L (98-107); Estimated Glomerular Filt Rate > 60; Glucose 120 mg/dL (65-110); Potassium 3.9 mmol/L (3.4-5.0); Sodium 143 mmol/L (137-145)
[2024-09-26 21:47] VITALS: BP 153/63; PULSE 63; RESP 15; TEMP 35.9; O2SAT 96
--- NOTE | 2024-09-26 22:22 | PC.NURSE ---
pt visitor to triage desk, my is in a lot of pain. we are going to contact primary provider in the morning. He is ready to go home . pt was seen being wheeled towards the exit of the ed by .
== END 2024-09-26 22:22 | disposition left against medical advice (07) ==
PROVIDERS: Emergency Provider Emergency Medicine; PCP Physician Assistant
DX: R06.02 Shortness of breath (principal)
CPT/HCPCS: 36415; 71046; 80053; 85025; 93005; 99199

== ENCOUNTER 2024-09-29 11:47 | Inpatient (IN) | payer MEDICARE, SELFPAY ==
[2024-09-29] VITALS (38 sets, daily range): BP systolic 91–153; BP diastolic 56–96; PULSE 58–90; RESP 11–40; TEMP 36.4–36.9; O2SAT 85–100; BMI 36.1
--- NOTE | ~2024-09-29 | US_ITS ---
EXAMINATION: US thoracentesis DATE: 09/29/2024 18:07 INDICATION: Left pleural effusion TECHNIQUE: The procedure and its risks and benefits were discussed with the patient. Potential risks discussed included bleeding, infection, and pneumothorax. The patient understood the risks and agreed to proceed. The skin was prepped and draped in sterile fashion. 1% lidocaine was used for local anes thesia. Under ultrasound guidance, a 5 Fr catheter with trochar was advanced into the left pleural ef fusion. Fluid was aspirated. The catheter was removed, and a dressing was applied. There were no imme diate complications. FINDINGS: Ultrasound images demonstrate a moderate-sized left pleural effusion and the catheter within the flui d. IMPRESSION: 1. Successful ultrasound-guided thoracentesis yielding 1000 mL of dark jaziel-colored fluid. Reviewed, dictated and finalized at location A. STRY CONSULTANT IMPRESSION: 1. Successful ultrasound-guided thoracentesis yielding 1000 mL of dark jaziel-c olored fluid.
--- NOTE | ~2024-09-29 | XR_ITS ---
EXAMINATION: [id number] DATE: 09/29/2024 17:44 INDICATION: Status post thoracentesis for left pleural effusion. TECHNIQUE: frontal view of the chest was obtained. COMPARISON: Chest radiograph dated 09/29/2024 FINDINGS: Left internal jugular central venous port catheter with distal tip in the right atrium. Unchanged sma ll right pleural effusion with blunting at the costophrenic and cardiophrenic angles. Improved aerati on in the left lower lung zone with decrease in size of a previously moderate, currently small residu al left pleural effusion postthoracentesis. No pneumothorax. No pulmonary edema in the aerated portio ns of the lungs. Portions of the left heart border obscured. The visualized portion of the cardiac si lhouette suggests mild cardiomegaly. A couple old healed left rib fractures. IMPRESSION: 1. . Small right and decreased now small left pleural effusion post left thoracentesis. No pneumothor ax. 2. Opacities at the left lower lung zone which could represent associated atelectasis or pneumonia. Reviewed, dictated and finalized at location A. TRANSFUSIONIST IMPRESSION: 1. . Small right and decreased now small left pleural effusion post left thorac entesis. No pneumothorax. 2. Opacities at the left lower lung zone which could represent associated atele ctasis or pneumonia.
--- NOTE | ~2024-09-29 | CT_ITS ---
EXAMINATION: CTA chest PE protocol DATE: 09/29/2024 14:43 INDICATION: Dyspnea. TECHNIQUE: Computed tomography angiography (CTA) of the chest was performed with 100 mL Omnipaque-350 intravenous contrast timed to evaluate the pulmonary arteries. Coronal maximum intensity projection 3D-reconstructions were created by the technologist. Automated exposure control and iterative reconst ruction technique were employed. The dose-length product was 895.18 mGy-cm. COMPARISON: Chest CT 11/12/2022 FINDINGS: The lungs demonstrate mild atelectasis. There are small right and moderate-sized left pleur al effusions. Cardiomegaly is noted. There are coronary artery calcifications. No pericardial effusio n. There is no pulmonary embolus. There is a left internal jugular port with tip in right atrium. The re are widespread mixed lytic and sclerotic lesions throughout the bones. There are multiple healing bilateral pathologic rib fractures. There are healing pathologic fractures of right L1 and L2 transve rse processes. There is mild chronic anterior wedging of multiple vertebral bodies. IMPRESSION: 1. No pulmonary embolus. 2. Small right and moderate-sized left pleural effusions. 3. Widespread osseous metastatic disease again seen. Reviewed, dictated and finalized at location A. BIRTH MIDWIFE
--- NOTE | ~2024-09-29 | CT_ITS ---
CT brain wo con, CT cervical spine wo con Ordering provider: Maranda Vallejo PA-C History: 73 years Male with . fall and hit head . Comparison: June 03, 2022 Technique: CT of the head without contrast. Radiation reduction technique utilized.The dose-length pr oduct was 681 mGy-cm. FINDINGS: BRAIN PARENCHYMA AND CSF SPACES: Mild leukoaraiosis and diffuse cortical atrophy. Mild atheromatous d isease. No midline shift, mass effect or hemorrhage. The brain parenchyma and CSF spaces are otherwise norm al. Bilateral basal ganglia calcifications are noted. VISUALIZED PARANASAL SINUSES: Well aerated. MASTOIDS: Well aerated. BONES: The bones appear intact. SOFT TISSUES: Visualized nasopharynx is normal. Superficial soft tissues are normal. IMPRESSION: No acute intracranial findings. CT brain wo con, CT cervical spine wo con Ordering provider: Maranda Vallejo PA-C History: . fall and hit head . Comparison: None. Technique: CT of the cervical spine was performed without contrast. Sagittal and coronal reformatted images were also obtained and reviewed. Automated exposure control and iterative reconstruction jose hnique were employed. .00 (accession [id number]), 538.87 (accession [id number]) Radiation reduction technique utilized.The dose-length product was 538.87 mGy-cm. FINDINGS: VERTEBRAE: Multiple hypodensities seen in the vertebrae. Metastatic lesions should be considered. Oth erwise, No subluxation or acute fracture. The occipital condyles are intact. Osteolytic lesions or c ysts also seen in the ribs, sternum and thoracic vertebrae. DISC SPACES: Narrowing of the disc C5-C6. Multilevel uncovertebral joint osteoarthritic changes. Narr owing of the foramina at the level of C4-C5, C5-C6 and C6-C7. PARASPINOUS SOFT TISSUES: Normal. Left pleural effusion is noted. Left central line is noted. IMPRESSION: No acute osseous abnormality cervical spine. Multiple osteolytic lesions in the spine, ribs, sternum and thoracic spine suggestive of metastatic l esions. Clinical correlation and further evaluation advised. Left pleural effusion. Reviewed, dictated and finalized at location A. LOPE MAKER IMPRESSION: No acute intracranial findings. CT brain wo con, CT cervical spine wo con Ordering provider: Maranda Vallejo PA-C History: . fall and hit head . Comparison: None. Technique: CT of the cervical spine was performed without contrast. Sagittal a nd coronal reformatted images were also obtained and reviewed. Automated expos ure control and iterative reconstruction technique were employed. .00 (accessio n [id number]), 538.87 (accession [id number]) Radiation reduction technique utilized.The dose-length product was 538.87 mGy-c m. FINDINGS: VERTEBRAE: Multiple hypodensities seen in the vertebrae. Metastatic lesions obie uld be considered. Otherwise, No subluxation or acute fracture. The occipital c ondyles are intact. Osteolytic lesions or cysts also seen in the ribs, sternum and thoracic vertebrae. DISC SPACES: Narrowing of the disc C5-C6. Multilevel uncovertebral joint osteoa rthritic changes. Narrowing of the foramina at the level of C4-C5, C5-C6 and C6 -C7. PARASPINOUS SOFT TISSUES: Normal. Left pleural effusion is noted. Left central line is noted. IMPRESSION: No acute osseous abnormality cervical spine. Multiple osteolytic lesions in the spine, ribs, sternum and thoracic spine sugg estive of metastatic lesions. Clinical correlation and further evaluation advis ed. Left pleural effusion. IMPRESSION: No acute intracranial findings. CT brain wo con, CT cervical spine wo con Ordering provider: Maranda Vallejo PA-C History: . fall and hit head . Comparison: None. Technique: CT of the cervical spine was performed without contrast. Sagittal a nd coronal reformatted images were also obtained and reviewed. Automated expos ure control and iterative reconstruction technique were employed. .00 (accessio n [id number]), 538.87 (accession [id number]) Radiation reduction technique utilized.The dose-length product was 538.87 mGy-c m. FINDINGS: VERTEBRAE: Multiple hypodensities seen in the vertebrae. Metastatic lesions obie uld be considered. Otherwise, No subluxation or acute fracture. The occipital c ondyles are intact. Osteolytic lesions or cysts also seen in the ribs, sternum and thoracic vertebrae. DISC SPACES: Narrowing of the disc C5-C6. Multilevel uncovertebral joint osteoa rthritic changes. Narrowing of the foramina at the level of C4-C5, C5-C6 and C6 -C7. PARASPINOUS SOFT TISSUES: Normal. Left pleural effusion is noted. Left central line is noted.
--- NOTE | ~2024-09-29 | XR_ITS ---
EXAMINATION: XR chest 1V portable DATE: 09/29/2024 14:56 INDICATION: Shortness of breath. TECHNIQUE: A single frontal view of the chest was obtained. COMPARISON: Chest CT 09/29/2024 FINDINGS: There are small right and moderate-sized left pleural effusions. There are airspace opaciti es at left lung base, likely atelectasis. No pneumothorax. Cardiomegaly is noted. There is a left int ernal jugular port with tip in right atrium. There is a widespread mixed lytic and sclerotic pattern in the bones, consistent with metastatic disease. IMPRESSION: 1. Stable small right and moderate-sized left pleural effusions. 2. Cardiomegaly. 3. Widespread osseous metastatic disease. Reviewed, dictated and finalized at location A. CONDUCTOR ASSEMBLER
--- NOTE | 2024-09-29 12:25 | ECG_ITS ---
Test Date: 2024-09-29 13:26:32 Measurements Intervals [place] Rate: 65 P: 12 [place]: 165 QRS: -20 QRSD: 101 T: -1 QT: 418 QTc: 437 Interpretive Statements SINUS RHYTHM DELAYED PRECORDIAL R/S TRANSITION LOW QRS VOLTAGE IN PRECORDIAL LEADS MINIMAL Q WAVES- HIGH LATERAL LEADS BORDERLINE ST-T WAVE ABNORMALITY- INF/HIGH LAT LEADS BASELINE ARTIFACT- I, II, III, AVR, AVL, AVF, V4-V6 BORDERLINE ECG Compared to ECG 09/26/2024 19:09:07 VENTRICULAR PREMATURE COMPLEX NO LONGER PRESENT Electronically Signed On 09-29-2024 13:32:50 MOVE COORDINATOR by Percy Adhikari D.O.
[2024-09-29 13:04] LABS: Basophils Percent Auto 0.2 % (0.2-1.2); Eosinophils Absolute Auto 0.1 K/mm3 (0-0.3); Eosinophils Percent Auto 1.1 % (0-4.4); Hematocrit 31.8 % (42.0-52.0); Hemoglobin 9.8 g/dL (14.0-18.0); Immature Granulocyte Absolute 0.03 K/mm3 (0.00-0.031); Immature Granulocyte Percent A 0.5 % (0-0.5); Lymphocytes Absolute Auto 0.67 K/mm3 (0.9-3.2); Lymphocytes Percent Auto 10.9 % (18.3-44.2); Mean Corpuscular HGB Conc 30.8 g/dl (32-36); Mean Corpuscular Hemoglobin 29.8 pg (26-34); Mean Corpuscular Volume 96.7 fl (80-100); Mean Platelet Volume 9.1 fl (7.4-10.4); Monocytes Absolute Auto 0.6 K/mm3 (0.1-0.6); Monocytes Percent Auto 9.1 % (2.6-8.5); Neutrophils Absolute Auto 4.8 K/mm3 (1.3-6.7); Neutrophils Percent Auto 78.2 % (45.5-73.1); Platelet Count Result 127 k/mm3 (150-375); Red Blood Count 3.29 M/mm3 (4.6-6.20); Red Cell Distribution Width 17.1 % (11.5-14.5); White Blood Count 6.2 K/mm3 (4.5-10.0)
[2024-09-29 13:08] LABS: Alveolar/Arterial O2 Gradient 39.7 mmHg; Base Excess ABG 2.5 mEq/l (+/-2.0); Fractional Inspired Oxygen 21 %; HCO3 ABG 26.8 mEq/l (22.0-26.0); Oxygen Content ABG 12.6 %vol (16.0-22.0); Oxygen Saturation ABG 92.5 % (95.0-100.0); Oxyhemoglobin 90.5 % THb (90.0-100.0); PCO2 ABG 40.3 mmHg (35.0-45.0); PO2 ABG 61.8 mmHg (80.0-100.0); PO2 FiO2 Ratio Arterial Blood 2.94 %; Total Hemoglobin 9.9 g/dL (12.0-18.0); pH ABG 7.441 (7.350-7.450)
[2024-09-29 13:10] LABS: Device ROOM AIR; Modified Allen's Test Pass; Site Drawn LEFT RADIAL
[2024-09-29 13:27] LABS: NT Pro B Type Natriuretic Pept 834 pg/mL (19.9-100); Troponin I 0.014 ng/mL (0.000-0.034)
[2024-09-29 14:19] LABS: Alanine Aminotransferase 9 U/L (6-50); Albumin Level 3.9 g/dL (3.5-5.1); Alkaline Phosphatase 111 U/L (38-126); Anion Gap 7 mmol/L (4-12); Aspartate Amino Transferase 94 U/L (17-59); Bilirubin,Total 0.7 mg/dL (0.2-1.3); Blood Urea Nitrogen 22 mg/dL (9-20); Calcium 9.4 mg/dL (8.4-10.2); Carbon Dioxide 31 mmol/L (22-30); Chloride 108 mmol/L (98-107); Estimated CRCL calculation 68 ml/min; Estimated Glomerular Filt Rate > 60; Glucose 118 mg/dL (65-110); Potassium 3.5 mmol/L (3.4-5.0); Sodium 146 mmol/L (137-145)
--- NOTE | 2024-09-29 15:40 | ED.GENADULT ---
HPI - General Adult General Chief complaint: Shortness of Breath/Dyspnea Stated complaint: sob Time Seen by Provider: 09/29/24 12:27 History of Present Illness HPI narrative: This is a 73-year-old male with history of metastatic prostate cancer presenting for difficulty breathing. Patient says that over the last 2 weeks he has been having gradually worsening difficulty breathing on exertion. It is associated with chest tightness on the left side of his chest that radiates up to his neck. He denies fevers, chills, productive cough, history of blood clots, history of CHF. He is not on blood thinners. Related Data Home Medications Medication Instructions Recorded Confirmed magnesium oxide 800 mg PO DAILY 08/24/19 09/16/24 calcium 300 mg-vit D3 200 2 tablet PO DAILY 10/31/20 09/16/24 [id number] 13.5 mg tablet (Citracal Plus Bone Density Builder) leuprolide 3.75 mg intramuscular 3.75 mg IM MONTHLY 10/31/20 09/16/24 syringe kit (Lupron Depot) vitamin K2 40 mcg tablet 40 mcg PO DAILY 10/31/20 09/16/24 ibuprofen 800 mg tablet 800 mg PO Q6H PRN pain 07/10/21 09/16/24 morphine 15 mg tablet,extended 30 mg PO Q12H 07/10/21 09/16/24 release prednisone 5 mg tablet 5 mg PO DAILY 04/05/22 09/16/24 losartan 50 mg tablet 50 mg PO DAILY 05/24/22 09/16/24 denosumab 120 mg/1.7 mL (70 mg/mL) 120 mg subcut MONTHLY 06/17/22 09/16/24 subcutaneous solution (Xgeva) dexamethasone 4 mg tablet See Rx Instructions .Route .COMPLEX 06/17/22 09/16/24 methylcellulose (laxative) 500 mg 500 mg PO DAILY 06/17/22 09/16/24 tablet ondansetron 8 mg disintegrating 8 mg PO Q8H PRN Nausea 06/17/22 09/16/24 tablet potassium chloride 10 mEq 20 meq PO BID 06/17/22 09/16/24 tablet,extended release(part/cryst) cephalexin 250 mg capsule mg DAILY 09/29/24 ferrous sulfate 325 mg (65 mg 325 mg BID 09/29/24 09/29/24 iron) tablet (FeroSul) hydrocodone 10 mg-acetaminophen 10 tablet QID 09/29/24 09/29/24 325 mg tablet vitamin B complex 1,000 PO DAILY 09/29/24 Allergies Allergy/AdvReac Type Severity Reaction Status Date / Time No Known Allergies Allergy Unknown . Verified 09/26/24 19:00 [facility] Past Medical History Medical History Bone metastasis Kidney stones Obstructive sleep apnea Prostate cancer Surgical History Surgical History H/O umbilical hernia repair Hx of cystoscopy Family History Family History Mother Family history of malignant neoplasm of breast in first degree relative Carcinoma of colon Father Family history of Parkinson's disease Social History Social History Smoking status: Never smoker Second hand tobacco smoke exposure: Yes Alcohol intake: never Substance use: never Living arrangements: with family Spiritual care concerns: No Exam Narrative: APPEARANCE: No apparent distress. Head: atraumatic. EYES: EOMI, NOSE: Atraumatic NECK: Trachea midline RESPIRATORY: No tachypnea rest, tachypnea on mild exertion, decreased lung sounds in left lung base CARDIOVASCULAR: RRR, no peripheral edema ABDOMINAL: Non-distended soft nontender MUSCULOSKELETAl: No obvious deformities NEURO: Alert. Moving 4/4 extremities SKIN:: Warm, dry. Normal color PSYCHIATRIC: Normal affect Course Vital Signs Vital signs: Vital Signs Pulse Rate 68 09/29/24 12:05 Respiratory Rate 22 H 09/29/24 12:05 Blood Pressure 122/56 L 09/29/24 12:05 Pulse Oximetry 94 09/29/24 12:05 Oxygen Delivery Room Air 09/29/24 12:05 Pulse Rate 63 09/29/24 13:47 Respiratory Rate 18 09/29/24 13:47 Blood Pressure 127/60 09/29/24 13:47 Pulse Oximetry 93 09/29/24 13:47 Oxygen Delivery Room Air 09/29/24 12:05 Medical Decision Making MDM Narrative Medical decision making narrative: -Course: 73-year-old male with metastatic cancer presenting with gradually worsening shortness of breath over last several weeks. CTA ordered to evaluate. No evidence of PE, but it did demonstrate a moderate-sized pleural effusion on the left. No other clear cause of the patient's dyspnea. I discussed admission to have a therapeutic tap done to see if that improves the patient's respiratory status. Patient is agreeable with this plan. Patient be admitted the hospital for therapeutic thoracentesis. -DDX includes but is not limited to: PE, CHF, pneumonia, pleural effusion ACS viral syndrome, anemia -Co-morbidities complicating care: metastatic prostate cancer -Independent interpretation of studies: labs and imaging reviewed. Independent EKG interpretation: Rhythm [sinus], Rate [65], [place] -[normal], LA -[normal], QRS [narrow], QTC [normal], T waves -[negative for concerning inversions], ST Segments - [Negative for concerning elevations] Final interpretations: NSR -Discussion of Management/Consultants: Tayla -Shared decision making / Disposition: Obs Vital Signs Vital Signs: Vital Signs Pulse Rate 68 09/29/24 12:05 Respiratory Rate 22 H 09/29/24 12:05 Blood Pressure 122/56 L 09/29/24 12:05 Pulse Oximetry 94 09/29/24 12:05 Oxygen Delivery Room Air 09/29/24 12:05 Pulse Rate 63 09/29/24 13:47 Respiratory Rate 18 09/29/24 13:47 Blood Pressure 127/60 09/29/24 13:47 Pulse Oximetry 93 09/29/24 13:47 Oxygen Delivery Room Air 09/29/24 12:05 Lab Data 09/29/24 12:53 09/29/24 12:53 Labs: Lab Results 09/29/24 09/29/24 Range/Units 12:53 13:01 WBC 6.2 (4.5-10.0) K/mm3 RBC 3.29 L (4.6-6.20) M/mm3 Hgb 9.8 L (14.0-18.0) g/dL Hct 31.8 L (42.0-52.0) % MCV 96.7 (80-100) fl MCH 29.8 (26-34) pg MCHC 30.8 L (32-36) g/dl RDW 17.1 H (11.5-14.5) % Plt Count 127 L (150-375) k/mm3 MPV 9.1 (7.4-10.4) fl Immature Gran % (Auto) 0.5 (0-0.5) % Neut % (Auto) 78.2 H (45.5-73.1) % Lymph % (Auto) 10.9 L (18.3-44.2) % [place] % (Auto) 9.1 H (2.6-8.5) % Eos % (Auto) 1.1 (0-4.4) % Baso % (Auto) 0.2 (0.2-1.2) % Lymph # (Auto) 0.67 L (0.9-3.2) K/mm3 [place] # (Auto) 0.6 (0.1-0.6) K/mm3 Eos # (Auto) 0.1 (0-0.3) K/mm3 Baso # (Auto) 0.0 (0.0-0.1) K/mm3 Abs Immat Gran (auto) 0.03 (0.00-0.031) K/mm3 Absolute Neuts (auto) 4.8 (1.3-6.7) K/mm3 Absolute Nucleated RBC 0.000 (0.0-0.012) K/mm3 Nucleated RBC % 0.0 (0.0-0.2) % Sodium 146 H (137-145) mmol/L Potassium 3.5 (3.4-5.0) mmol/L Chloride 108 H (98-107) mmol/L Carbon Dioxide 31 H (22-30) mmol/L Anion Gap 7 (4-12) mmol/L BUN 22 H (9-20) mg/dL Creatinine 1.00 (0.7-1.3) mg/dL Estim Creat Clear Calc 68 ml/min Estimated GFR > 60 (59 - ) Glucose 118 H (65-110) mg/dL Calcium 9.4 (8.4-10.2) mg/dL Total Bilirubin 0.7 (0.2-1.3) mg/dL AST 94 H (17-59) U/L ALT 9 (6-50) U/L Alkaline Phosphatase 111 (38-126) U/L Troponin I 0.014 (0.000-0.034) ng/mL NT-Pro-B Natriuret Pep 834 H (19.9-100) pg/mL Total Protein 8.0 (6.3-8.2) g/dL Albumin 3.9 (3.5-5.1) g/dL Influenza A (RT-PCR) Pending Influenza B (RT-PCR) Pending RSV (RT-PCR) Pending SARS-CoV-2 RNA (RT-PCR) Pending ABG Data ABG results: 09/29/24 12:53 Puncture Site Left radial ABG pH 7.441 ABG pCO2 40.3 ABG pO2 61.8 L ABG PO2/FiO2 Ratio 2.94 ABG HCO3 26.8 H ABG O2 Saturation 92.5 L ABG O2 Content 12.6 L ABG Base Excess 2.5 A-a Gradient 39.7 Oxyhemoglobin 90.5 Total Hemoglobin 9.9 L O2 Delivery Device Room air O2 Liters/Min Not Reportable FiO2 21 Discharge Plan Discharge Clinical Impression: Pleural effusion, Metastatic cancer, Acute dyspnea Patient Disposition: Still a Patient Condition: Critical Prescriptions: No Action magnesium oxide 400 mg magnesium Tablet 800 mg PO DAILY potassium chloride 10 mEq tablet,ER particles/crystals 20 meq PO BID Fiber Therapy Laxative 500 mg Tablet 500 mg PO DAILY Xgeva 120 mg/1.7 mL (70 mg/mL) Solution 120 mg SUBCUT MONTHLY ondansetron 8 mg Tablet,Disintegrating 8 mg PO Q8H PRN (Reason: Nausea) dexamethasone 4 mg Tablet See Rx Instructions .ROUTE .COMPLEX Rx Instructions: 4 mg orally the day before, day of and day after treatment Lupron Depot 3.75 mg syringe kit 3.75 mg IM MONTHLY vitamin K2 40 mcg tablet 40 mcg PO DAILY Citracal Plus Bone Density 300-200-13.5 mg-unit-mg tablet 2 tablet PO DAILY ibuprofen 800 mg tablet 800 mg PO Q6H PRN (Reason: pain) morphine 15 mg tablet extended release 30 mg PO Q12H losartan 50 mg tablet 50 mg PO DAILY hydrocodone-acetaminophen 10-325 mg tablet 10 tablet QID ferrous sulfate [FeroSul] 325 mg (65 mg iron) tablet 325 mg BID cephalexin 250 mg capsule DAILY vitamin B complex [B Complex-Vitamin B12] Tablet 1,000 PO DAILY prednisone 5 mg tablet 5 mg PO DAILY Follow-up/Referrals: Cornelio,JD Campbell [Primary Care Provider] -
[2024-09-29 15:42] LABS: Influenza A QL RT-PCR Negative (Negative); Influenza B QL RT-PCR Negative (Negative); RSV RNA, RT-PCR Negative (Negative); SARS-CoV-2 RNA PCR Negative (Negative)
[2024-09-29 16:20] LABS: INR 1.1; Prothrombin Time 14.9 Seconds (11.1-14.7)
[2024-09-29 16:21] LABS: Partial Thromboplastin Time 44.7 Seconds (22.3-36.8)
--- NOTE | 2024-09-29 17:11 | P.HP_ITS ---
H&P: HPI History of Present Illness Date/Time: 09/29/24 17:11 Chief Complaint: Shortness of Breath Narrative: 73 y/o M presents here with shortness of breath with PMH of prostate cancer with bone metastases, kidney stones, and ASHIA. The patient presents here from home via EMS for further evaluation of shortness of breath and dizziness. The patient reports onset of shortness of breath and dizziness for the last 6-8 months. Symptoms have been progressively worsening over the last 2-3 weeks. The shortness of breath is accompanied by chest pressure and intermittent headache. He describes the chest pressure as left- sided, radiation into his bilateral neck and into his head causing a headache, intermittent, and no aggravating or alleviating factors. Denies any nausea, vomiting, or diaphoresis. He further describes dizziness as if he is spinning, will last 15-30 mins, resolves without intervention or medication, and occurs randomly. Of note, the patient has a history of metastatic prostate cancer for which he is undergoing radiation treatment with last treatment approximately 6 weeks ago. Oncologist is Sohan through [facility]. He has also had multiple blood transfusions over the last few weeks, anemia has previously been attributed to radiation. Upon EMS arrival an EKG was obtained which showed bigeminy as well as PVCs. Orthostatics were obtained with a 10 point drop. Initial VS at presentation: HR 68, RR 22, 122/56, and 94% on RA. ED workup showed: No leukocytosis, hemoglobin 9.8 (previously 9.9 on 09/26/2024), INR 1.1, ABG showed low pO2 and low O2 saturation, sodium 146, creatinine 1.0 and GFR >60, initial troponin 0.014, BNP 834. Viral PCR negative. CXR showed a stable small right and moderate sized left pleural effusion, cardiomegaly, and widespread osseous metastatic disease. Chest CTA showed no PE, small right and moderate left pleural effusions, and widespread osseous metastatic disease again seen. Review of Systems Review of Systems: All systems reviewed & are unremarkable except as noted in HPI and below PMFSH Past Medical History Medical History Anemia due to chemotherapy Bone metastasis History of iron deficiency anemia Kidney stones Obstructive sleep apnea Prostate cancer Surgical History Surgical History H/O umbilical hernia repair Hx of cystoscopy Family History Family History Mother Family history of malignant neoplasm of breast in first degree relative Carcinoma of colon Father Family history of Parkinson's disease Social History Social History Smoking status: Never smoker Second hand tobacco smoke exposure: Yes Alcohol intake: never Substance use: never Substance use type: does not use Do You Feel Safe in your Home?: Yes Lack of Transportation: No Lack of Food: Never True Current Housing: I Have Housing Concerned About Future Housing: No Difficulty Paying Gas/Electric Bills: No Difficulty Paying for Meds: No Currently Unemployed: No Education: Decline to Answer Difficulty w/ Childcare or Family Care: No Living arrangements: with family Spiritual care concerns: No Meds Home Medications and Allergies Home Medications Medication Instructions Recorded Confirmed Type calcium 300 mg-vit D3 200 2 tablet PO DAILY 10/31/20 09/29/24 History [id number] 13.5 mg tablet (Citracal Plus Bone Density Builder) vitamin K2 40 mcg tablet 40 mcg PO DAILY 10/31/20 09/29/24 History ibuprofen 800 mg tablet 800 mg PO Q6H PRN pain 07/10/21 09/29/24 History morphine 15 mg tablet,extended 30 mg PO Q12H 07/10/21 09/29/24 History release potassium chloride 10 mEq 10 meq PO BID 06/17/22 09/29/24 History tablet,extended release(part/cryst) cephalexin 250 mg capsule 250 mg PO DAILY 09/29/24 09/29/24 History ferrous sulfate 325 mg (65 mg 325 mg BID 09/29/24 09/29/24 History iron) tablet (FeroSul) hydrocodone 10 mg-acetaminophen 1 tablet PO QID 09/29/24 09/29/24 History 325 mg tablet vitamin B complex 1 tablet PO DAILY 09/29/24 09/29/24 History Allergies Allergy/AdvReac Type Severity Reaction Status Date / Time No Known Allergies Allergy Unknown . Verified 09/26/24 19:00 Vital Signs Vital Signs - 24 hr 09/29/24 12:05 09/29/24 12:05 09/29/24 12:14 Pulse Rate 68 79 Respiratory Rate 22 H 12 Blood Pressure 122/56 L Pulse Oximetry 94 93 94 Oxygen Delivery Room Air Room Air 09/29/24 12:15 09/29/24 12:30 09/29/24 12:45 Pulse Rate 71 78 90 Respiratory Rate 16 20 27 H Blood Pressure Pulse Oximetry 96 Oxygen Delivery 09/29/24 12:54 09/29/24 12:58 09/29/24 13:12 Pulse Rate 75 69 73 Respiratory Rate 22 H 23 H 40 H Blood Pressure 122/61 Pulse Oximetry 92 95 Oxygen Delivery 09/29/24 13:29 09/29/24 13:30 09/29/24 13:33 Pulse Rate 83 68 72 Respiratory Rate 19 21 H 14 Blood Pressure 153/72 H Pulse Oximetry 93 100 98 Oxygen Delivery 09/29/24 13:45 09/29/24 13:47 09/29/24 13:48 Pulse Rate 69 63 58 L Respiratory Rate 26 H 18 23 H Blood Pressure 127/60 Pulse Oximetry 93 93 92 Oxygen Delivery 09/29/24 14:01 09/29/24 14:03 09/29/24 14:15 Pulse Rate 76 72 67 Respiratory Rate 20 22 H 29 H Blood Pressure 116/63 Pulse Oximetry 99 92 96 Oxygen Delivery 09/29/24 14:17 09/29/24 14:43 09/29/24 14:44 Pulse Rate 71 77 74 Respiratory Rate 20 22 H 19 Blood Pressure 119/85 132/56 L Pulse Oximetry 92 93 Oxygen Delivery 09/29/24 14:45 09/29/24 15:00 09/29/24 15:16 Pulse Rate 73 Respiratory Rate 24 H 19 Blood Pressure Pulse Oximetry 94 99 Oxygen Delivery 09/29/24 15:17 09/29/24 15:30 09/29/24 15:32 Pulse Rate 75 70 72 Respiratory Rate 11 L 26 H 14 Blood Pressure 118/67 104/63 Pulse Oximetry 95 93 Oxygen Delivery 09/29/24 15:52 09/29/24 16:00 Pulse Rate 86 72 Respiratory Rate 17 18 Blood Pressure 108/67 Pulse Oximetry 93 96 Oxygen Delivery Exam Const: General: comfortable and no acute distress Other: , male, nontoxic appearance HENMT: Face/Nose/Sinus: Normal nares present Mouth: Yes moist mucous m embranes Eyes: General: appearance normal, both eyes and all related structures Sclera: sclerae normal Pupils: Equal, round and reactive pupils present EOM: EOMs intact bilaterally Resp: Effort & Inspection: normal respiratory effort Other: Significantly diminished/absent in the left base. No wheezing or crackles. Cardio: Rate: regular rate Rhythm: regular rhythm Other: S1-S2 present without murmur, rub, ectopy GI: Other: Abdomen rounded, soft, nontender. Normoactive bowel sounds in all quadrants. Skin: General skin exam: normal color and no rashes or lesions noted Wounds: no wounds Neuro: Speech: normal speech Motor exam (neuro): 5/5 motor strength present throughout Sensory Exam: normal sensation Other: A&O x4 Extrem: General: normal to inspection Psych: Mental Status: mental status grossly normal Affect: normal affect Other: Good insight judgment, very pleasant H&P: Results Labs Labs: Short CBC 09/29/24 Range/Units 12:53 WBC 6.2 (4.5-10.0) K/mm3 Hgb 9.8 L (14.0-18.0) g/dL Hct 31.8 L (42.0-52.0) % Plt Count 127 L (150-375) k/mm3 BMP 09/29/24 12:53 Sodium 146 H Potassium 3.5 Chloride 108 H Carbon Dioxide 31 H BUN 22 H Creatinine 1.00 Glucose 118 H Calcium 9.4 Cardiac Enzymes 09/29/24 Range/Units 12:53 Troponin I 0.014 (0.000-0.034) ng/mL Liver Function 09/29/24 Range/Units 12:53 Total Bilirubin 0.7 (0.2-1.3) mg/dL AST 94 H (17-59) U/L ALT 9 (6-50) U/L Alkaline Phosphatase 111 (38-126) U/L Albumin 3.9 (3.5-5.1) g/dL Assessment and Plan Assessment and plan (1) Acute dyspnea: Code(s): R06.00 - Dyspnea, unspecified Status: Acute Assessment and Plan: - CXR: 1. Stable small right and moderate-sized left pleural effusions. 2. Cardiomegaly. 3. Widespread osseous metastatic disease. - Chest CTA: 1. No pulmonary embolus. 2. Small right and moderate-sized left pleural effusions. 3. Widespread osseous metastatic disease again seen. - troponin: 0.014 -> 0.016 and 3rd troponin ordered - EKG, initial: Sinus rhythm, delayed precordial RS transition, low QRS voltage in precordial leads, minimal Q-waves in high lateral leads, borderline ST-T-wave abnormality in inferior/high lateral leads, borderline artifact. When compared to EKG done on 09/26/2024, ventricular premature complex no longer present. - viral PCR negative - suspect worsening dyspnea secondary to pleural effusions, cannot exclude ACS. (2) Pleural effusion: Code(s): J90 - Pleural effusion, not elsewhere classified Status: Acute Assessment and Plan: - diagnostic thoracentesis of the left pleural effusion pending, observation - echo ordered - monitor daily weights and I&Os Shortness of breath is improved post thoracentesis. (3) Prostate cancer: Code(s): C61 - Malignant neoplasm of prostate Status: Chronic Assessment and Plan: - prostate cancer with Mets to the bone, widespread - xena Parry MD - last radiation treatment approximately 6 weeks ago (4) Obstructive sleep apnea: Code(s): G47.33 - Obstructive sleep apnea (adult) (pediatric) Status: Chronic Assessment and Plan: - continue home CPAP Plan Diet: Heart healthy GI Prophylaxis: Not currently indicated DVT Prophylaxis: SCDs Lines: Peripheral Code Status: Full code Quality VTE Prophylaxis VTE prophylaxis: mechanical ordered Hospitalist MIPS Advance Care Plan I have confirmed that the patient's Advanced Care Plan is present, code status is documented, or surrogate decision maker is listed in patient medical record.: Yes Medication Reconciliation I have utilized all available resources to obtain, update and review the patients current medications (includes all prescriptions, OTC, herbals, cannabis, and nutritional supplements).: Yes
[2024-09-29] MEDS: MORPHINE SULFATE (*CRX) 4 MG/ML INJ IV PUSH (17:53)
[2024-09-29 18:06] LABS: pH Pleural Fluid > 7.500 (7.210-7.500)
--- NOTE | 2024-09-29 18:49 | PC.NURSE ---
This patient, Tesfaye Tejada, was admitted to Medical Room 346-01. Patient/family oriented to hospital policies and general routines including ID bracelet, bed and alarms, visiting hours, pain management, procedures, bathroom and other care routines, personal items, smoking policy, room service/diet, and visiting hours. Information on how to activate the Rapid Response Team has been discussed. Patient/Family are encouraged to report perceived risks to care and to ask questions if they do not understand what they are told or what they should do.
[2024-09-29 19:06] LABS: Appearance Pleural Fluid Cloudy (Clear); Color Pleural Fluid Yellow (Colorless); Neutrophils Pleural Fluid 1 % (0-25); Nucleated Cell Pleural Fluid 1245 /uL (0-1000); Pleural fluid source Pleural fluid; RBC Pleural Fluid 8000 /uL (0-10000)
[2024-09-29 19:07] LABS: Lymphocytes Pleural Fluid 87 %; Monocytes Pleural Fluid 1 %
[2024-09-29 19:08] LABS: Macrophages Pleural Fluid 11 %
[2024-09-29 19:13] LABS: Albumin Level 3.6 g/dL (3.5-5.1); Amylase 41 U/L (30-110); Bilirubin,Total 0.6 mg/dL (0.2-1.3); Cholesterol 129 mg/dL (0-200); Glucose 119 mg/dL (65-110); Lactate Dehydrogenase 268 U/L (120-246); Triglycerides 110 mg/dL (<150)
[2024-09-29 19:25] LABS: Troponin I 0.016 ng/mL (0.000-0.034)
[2024-09-29] MEDS: MORPHINE SULFATE (*CRX) 30 MG TABCR PO (22:14)
[2024-09-29] MEDS: IBUPROFEN 400 MG TABLET 800 MG PO (22:14)
[2024-09-30 00:05] VITALS: BP 149/75; PULSE 89; RESP 18; TEMP 36.8; O2SAT 94
[2024-09-30 00:08] LABS: Troponin I 0.024 ng/mL (0.000-0.034)
[2024-09-30 00:30] VITALS: BP 149/75; PULSE 89; RESP 18; TEMP 36.8; O2SAT 94
[2024-09-30 05:52] VITALS: BP 127/62; PULSE 58; RESP 20; TEMP 36.6; O2SAT 96
--- NOTE | 2024-09-30 06:23 | PC.NURSE ---
Pt fell a little after midnight while trying to activate is artificial sphincter at the toilet. He sustained a small skin tear on his right forarm but otherwise was ok.
[2024-09-30 06:27] LABS: Hematocrit 28.3 % (42.0-52.0); Hemoglobin 8.4 g/dL (14.0-18.0); Mean Corpuscular HGB Conc 29.7 g/dl (32-36); Mean Corpuscular Hemoglobin 29.3 pg (26-34); Mean Corpuscular Volume 98.6 fl (80-100); Platelet Count Result 125 k/mm3 (150-375); Red Blood Count 2.87 M/mm3 (4.6-6.20); Red Cell Distribution Width 17.1 % (11.5-14.5); White Blood Count 5.8 K/mm3 (4.5-10.0)
[2024-09-30 06:36] LABS: Anion Gap 6 mmol/L (4-12); Blood Urea Nitrogen 20 mg/dL (9-20); Calcium 8.9 mg/dL (8.4-10.2); Carbon Dioxide 31 mmol/L (22-30); Chloride 107 mmol/L (98-107); Estimated CRCL calculation 76 ml/min; Estimated Glomerular Filt Rate > 60; Glucose 102 mg/dL (65-110); Magnesium 2.4 mg/dL (1.6-2.3); Potassium 3.1 mmol/L (3.4-5.0); Sodium 144 mmol/L (137-145)
--- NOTE | 2024-09-30 08:27 | P.PNIM_ITS ---
Progress Note: A&P Assessment and Plan (1) Fall: Code(s): W19.XXXA - Unspecified fall, initial encounter Status: Acute Assessment and Plan: Patient had a fall overnight, requiring multiple people to help him get up. He states he was trying to urinate, bent down to better activate his artificial sphincter became dizzy and fell back hitting his head. He denies LOC. He states he has had about 3 falls in the past 2 weeks due to his legs giving out. He does not use any assistive devices for ambulation at baseline. - Orthostatic vital signs qshift - Head CT ordered - C spine CT ordered - PT/OT ordered (2) Acute dyspnea: Code(s): R06.00 - Dyspnea, unspecified Status: Acute Assessment and Plan: - viral PCR negative - troponin: 0.014 -> 0.016 -> 0.024, elevating but remain flat. Likely secondary to demand ischemia due to the effusion. - EKG, initial: Sinus rhythm, delayed precordial RS transition, low QRS voltage in precordial leads, minimal Q-waves in high lateral leads, borderline ST-T-wave abnormality in inferior/high lateral leads, borderline artifact. When compared to EKG done on 09/26/2024, ventricular premature complex no longer present. - CXR: 1. Stable small right and moderate-sized left pleural effusions. 2. Cardiomegaly. 3. Widespread osseous metastatic disease. - Chest CTA: 1. No pulmonary embolus. 2. Small right and moderate-sized left pleural effusions. 3. Widespread osseous metastatic disease again seen. - suspect worsening dyspnea secondary to pleural effusions, cannot exclude ACS. (3) Pleural effusion: Code(s): J90 - Pleural effusion, not elsewhere classified Status: Acute Assessment and Plan: - CXR: 1. Stable small right and moderate-sized left pleural effusions. 2. Cardiomegaly. 3. Widespread osseous metastatic disease. - Chest CTA: 1. No pulmonary embolus. 2. Small right and moderate-sized left pleural effusions. 3. Widespread osseous metastatic disease again seen. - diagnostic thoracentesis of the left pleural effusion on 09/29 yeilding 1L dark jaziel colored fluid pleural fluid does not appear to have been sent for culture - Echo LVEF 53% - Viral PCR: negative for Flu/COVID/RSV - no supplemental O2 requirement - Monitor vital signs, I&Os, neuro status and patient is a fall risk - Follow WBC, serum electrolytes, temperature curves and cultures Shortness of breath is improved post thoracentesis. (4) Prostate cancer: Code(s): C61 - Malignant neoplasm of prostate Status: Chronic Assessment and Plan: - prostate cancer with Mets to the bone, widespread - follows with oncology, Dr. Sohan LENZ - last radiation treatment approximately 6 weeks ago (5) Obstructive sleep apnea: Code(s): G47.33 - Obstructive sleep apnea (adult) (pediatric) Status: Chronic Assessment and Plan: - continue home CPAP Plan Diet: Heart healthy GI Prophylaxis: Not currently indicated DVT Prophylaxis: SCDs Lines: Peripheral Code Status: Full code Time Spent With Patient Time with patient: 25 - 35 minutes Subjective Date/time seen: 09/30/24 08:27 Interval history: 73 y/o M presents here with shortness of breath with PMH of prostate cancer with bone metastases, kidney stones, and ASHIA. Patient is pleasant lying comfortably in bed. He states that he is feeling much better following his thoracentesis and is no longer short of breath. He states that he had a fall overnight, requiring multiple people to help him get up. He was trying to urinate, bent down to better activate his artificial sphincter became dizzy and fell back hitting his head. He denies LOC. He denies headaches, blurred vision, dizziness, lightheadedness. He states he has had about 3 falls in the past 2 weeks due to his legs giving out. He does not use any assistive devices for ambulation at baseline. Patient has no other complaints denying chest pain, palpitations, nausea/vomiting and abdominal pain. Review of Systems Review of Systems: All systems reviewed & are unremarkable except as noted in HPI and below Exam Narrative: AF HR 58 RR 20 SpO2 96 BP 127/62 General: male in no acute respiratory distress who is nontoxic appearing, sitting up in bed HEENT: Normocephalic. Atraumatic. Pupils equal round reactive to light. Extraocular movement intact. Sclera clear and anicteric. No facial asymmetry. Chest: Lungs are diminished with crackles worse in the left base to auscultation bilaterally. No wheezes or crackles. CV: Heart was regular rate and rhythm. S1/S2. No murmurs, gallops, or rubs. Abd: Abdomen was soft. Nontender. Nondistended. Positive bowel sounds. No organomegaly or masses. Ext: No clubbing, cyanosis, or edema. 2+ DP pulses bilaterally. Neuro: Patient is alert and oriented x4. Strength is 5/5 in both upper and lower extremities. Cranial nerves 2-12 are intact. Speech is clear. Objective Data Vital Signs Vital Signs: Vital Signs - 24 hr 09/29/24 12:05 09/29/24 12:05 09/29/24 12:14 Temperature Pulse Rate 68 79 Respiratory Rate 22 H 12 Blood Pressure 122/56 L Pulse Oximetry 94 93 94 Oxygen Delivery Room Air Room Air 09/29/24 12:15 09/29/24 12:30 09/29/24 12:45 Temperature Pulse Rate 71 78 90 Respiratory Rate 16 20 27 H Blood Pressure Pulse Oximetry 96 Oxygen Delivery 09/29/24 12:54 09/29/24 12:58 09/29/24 13:12 Temperature Pulse Rate 75 69 73 Respiratory Rate 22 H 23 H 40 H Blood Pressure 122/61 Pulse Oximetry 92 95 Oxygen Delivery 09/29/24 13:29 09/29/24 13:30 09/29/24 13:33 Temperature Pulse Rate 83 68 72 Respiratory Rate 19 21 H 14 Blood Pressure 153/72 H Pulse Oximetry 93 100 98 Oxygen Delivery 09/29/24 13:45 09/29/24 13:47 09/29/24 13:48 Temperature Pulse Rate 69 63 58 L Respiratory Rate 26 H 18 23 H Blood Pressure 127/60 Pulse Oximetry 93 93 92 Oxygen Delivery 09/29/24 14:01 09/29/24 14:03 09/29/24 14:15 Temperature Pulse Rate 76 72 67 Respiratory Rate 20 22 H 29 H Blood Pressure 116/63 Pulse Oximetry 99 92 96 Oxygen Delivery 09/29/24 14:17 09/29/24 14:43 09/29/24 14:44 Temperature Pulse Rate 71 77 74 Respiratory Rate 20 22 H 19 Blood Pressure 119/85 132/56 L Pulse Oximetry 92 93 Oxygen Delivery 09/29/24 14:45 09/29/24 15:00 09/29/24 15:16 Temperature Pulse Rate 73 Respiratory Rate 24 H 19 Blood Pressure Pulse Oximetry 94 99 Oxygen Delivery 09/29/24 15:17 09/29/24 15:30 09/29/24 15:32 Temperature Pulse Rate 75 70 72 Respiratory Rate 11 L 26 H 14 Blood Pressure 118/67 104/63 Pulse Oximetry 95 93 Oxygen Delivery 09/29/24 15:52 09/29/24 16:00 09/29/24 16:15 Temperature Pulse Rate 86 72 76 Respiratory Rate 17 18 21 H Blood Pressure 108/67 120/96 H Pulse Oximetry 93 96 85 L Oxygen Delivery 09/29/24 16:16 09/29/24 16:40 09/29/24 16:46 Temperature Pulse Rate 75 74 74 Respiratory Rate 20 24 H 17 Blood Pressure 91/69 L Pulse Oximetry 94 94 93 Oxygen Delivery 09/29/24 16:54 09/29/24 17:50 09/29/24 17:52 Temperature Pulse Rate 75 71 Respiratory Rate 16 13 Blood Pressure 131/69 Pulse Oximetry 92 94 95 Oxygen Delivery 09/29/24 18:00 09/29/24 18:43 09/29/24 20:33 Temperature 97.5 F L 98.4 F Pulse Rate 65 68 67 Respiratory Rate 24 H 18 18 Blood Pressure 123/65 137/64 132/79 Pulse Oximetry 94 93 92 Oxygen Delivery 09/29/24 20:00 09/30/24 05:52 09/30/24 00:30 Temperature 97.9 F 98.2 F Pulse Rate 58 L 89 Respiratory Rate 20 18 Blood Pressure 127/62 149/75 H Pulse Oximetry 96 94 Oxygen Delivery Room Air 09/30/24 00:05 Temperature 98.2 F Pulse Rate 89 Respiratory Rate 18 Blood Pressure 149/75 H Pulse Oximetry 94 Oxygen Delivery Intake/Output Intake/Output: Intake & Output 09/27/24 09/28/24 09/29/24 09/30/24 23:59 23:59 23:59 23:59 Intake Total 500 Output Total 1000 150 Balance -1000 350 Meds/Results Medications: Active Medications Generic Name Dose Route Start Last Admin Trade Name Freq PRN Reason Stop Dose Admin Hydrocodone Bitart/Acetaminophen 1 tab 09/30/24 09:00 Hydrocodone/Acetaminophen (*Crx) 10-325 Mg Tablet PO Q4H PRN moderate-severe pain Calcium Citrate 2 tablet 09/30/24 09:00 Calcium Citrate 315 Mg/Vitamin D 6.25 Mcg (250 Units) Tab PO QAM [facility] Cephalexin HCl 250 mg 09/30/24 09:00 Cephalexin 250 Mg Capsule PO DAILY [facility] Ibuprofen 800 mg 09/29/24 21:54 09/29/24 22:14 Ibuprofen 400 Mg Tablet PO 800 mg Q6H PRN Administration mild pain Morphine Sulfate 30 mg 09/29/24 21:00 09/29/24 22:14 Morphine Sulfate (*Crx) 30 Mg Tabcr PO 30 mg Q12H TYRONE Administration Non-Formulary Medication 40 mcg 09/30/24 09:00 Vitamin K2 PO 10/30/24 08:59 DAILY [facility] Perflutren Lipid Microsphere 0 ml 09/29/24 17:18 Perflutren Lipid Microspheres 1.5 Ml Vial Diluted To 10 Ml Total Volume IV PUSH 10/02/24 17:18 ONCE PRN adequate visualization Protocol Potassium Chloride 10 meq 09/30/24 09:00 Potassium Chloride 10 Meq Er Tablet PO BID [facility] Vitamin B Complex 1 cap 09/30/24 09:00 Vitamin B Complex Capsule PO DAILY [facility] Radiology Results: ITS Impressions Chest CTA 09/29/24 14:47 IMPRESSION: 1. No pulmonary embolus. 2. Small right and moderate-sized left pleural effusions. 3. Widespread osseous metastatic disease again seen. Chest X-Ray 09/29/24 17:46 IMPRESSION: 1. . Small right and decreased now small left pleural effusion post left thoracentesis. No pneumothorax. 2. Opacities at the left lower lung zone which could represent associated atelectasis or pneumonia. Thoracentesis Ultrasound 09/29/24 18:46 IMPRESSION: 1. Successful ultrasound-guided thoracentesis yielding 1000 mL of dark jaziel- colored fluid. Labs Labs: Laboratory Results - last 24 hr 09/29/24 09/29/24 09/29/24 12:53 13:01 17:22 WBC 6.2 RBC 3.29 L Hgb 9.8 L Hct 31.8 L MCV 96.7 MCH 29.8 MCHC 30.8 L RDW 17.1 H Plt Count 127 L MPV 9.1 Immature Gran % (Auto) 0.5 Neut % (Auto) 78.2 H Lymph % (Auto) 10.9 L [place] % (Auto) 9.1 H Eos % (Auto) 1.1 Baso % (Auto) 0.2 Lymph # (Auto) 0.67 L [place] # (Auto) 0.6 Eos # (Auto) 0.1 Baso # (Auto) 0.0 Abs Immat Gran (auto) 0.03 Absolute Neuts (auto) 4.8 Absolute Nucleated RBC 0.000 Nucleated RBC % 0.0 PT 14.9 H INR 1.1 APTT 44.7 H Puncture Site Left radial ABG pH 7.441 ABG pCO2 40.3 ABG pO2 61.8 L ABG PO2/FiO2 Ratio 2.94 ABG HCO3 26.8 H ABG O2 Saturation 92.5 L ABG O2 Content 12.6 L ABG Base Excess 2.5 A-a Gradient 39.7 Oxyhemoglobin 90.5 Total Hemoglobin 9.9 L O2 Delivery Device Room air O2 Liters/Min Not Reportable FiO2 21 Sodium 146 H Potassium 3.5 Chloride 108 H Carbon Dioxide 31 H Anion Gap 7 BUN 22 H Creatinine 1.00 Estim Creat Clear Calc 68 Estimated GFR > 60 Glucose 118 H Calcium 9.4 Magnesium Total Bilirubin 0.7 AST 94 H ALT 9 Alkaline Phosphatase 111 Lactate Dehydrogenase Troponin I 0.014 NT-Pro-B Natriuret Pep 834 H Total Protein 8.0 Albumin 3.9 Triglycerides Cholesterol Amylase Pleural Fluid Source Pleural fluid Pleural Color Yellow Pleural Appearance Cloudy Pleural pH > 7.500 H Pleural RBC 8000 Pleural Nuc Cells 1245 H Pleural Neutrophils 1 Pleural Lymphocytes 87 Pleural Monocytes 1 Pleural Macrophages 11 Influenza A (RT-PCR) Negative Influenza B (RT-PCR) Negative RSV (RT-PCR) Negative SARS-CoV-2 RNA (RT-PCR) Negative 09/29/24 09/29/24 09/29/24 18:54 18:56 23:35 WBC RBC Hgb Hct MCV MCH MCHC RDW Plt Count MPV Immature Gran % (Auto) Neut % (Auto) Lymph % (Auto) [place] % (Auto) Eos % (Auto) Baso % (Auto) Lymph # (Auto) [place] # (Auto) Eos # (Auto) Baso # (Auto) Abs Immat Gran (auto) Absolute Neuts (auto) Absolute Nucleated RBC Nucleated RBC % PT INR APTT Puncture Site ABG pH ABG pCO2 ABG pO2 ABG PO2/FiO2 Ratio ABG HCO3 ABG O2 Saturation ABG O2 Content ABG Base Excess A-a Gradient Oxyhemoglobin Total Hemoglobin O2 Delivery Device O2 Liters/Min FiO2 Sodium Potassium Chloride Carbon Dioxide Anion Gap BUN Creatinine Estim Creat Clear Calc Estimated GFR Glucose 119 H Calcium Magnesium Total Bilirubin 0.6 AST ALT Alkaline Phosphatase Lactate Dehydrogenase 268 H Troponin I 0.016 0.024 D NT-Pro-B Natriuret Pep Total Protein 7.0 Albumin 3.6 Triglycerides 110 Cholesterol 129 Amylase 41 Pleural Fluid Source Pleural Color Pleural Appearance Pleural pH Pleural RBC Pleural Nuc Cells Pleural Neutrophils Pleural Lymphocytes Pleural Monocytes Pleural Macrophages Influenza A (RT-PCR) Influenza B (RT-PCR) RSV (RT-PCR) SARS-CoV-2 RNA (RT-PCR) 09/30/24 05:40 WBC 5.8 RBC 2.87 L Hgb 8.4 L Hct 28.3 L MCV 98.6 MCH 29.3 MCHC 29.7 L RDW 17.1 H Plt Count 125 L MPV 10.0 Immature Gran % (Auto) Neut % (Auto) Lymph % (Auto) [place] % (Auto) Eos % (Auto) Baso % (Auto) Lymph # (Auto) [place] # (Auto) Eos # (Auto) Baso # (Auto) Abs Immat Gran (auto) Absolute Neuts (auto) Absolute Nucleated RBC Nucleated RBC % PT INR APTT Puncture Site ABG pH ABG pCO2 ABG pO2 ABG PO2/FiO2 Ratio ABG HCO3 ABG O2 Saturation ABG O2 Content ABG Base Excess A-a Gradient Oxyhemoglobin Total Hemoglobin O2 Delivery Device O2 Liters/Min FiO2 Sodium 144 Potassium 3.1 L Chloride 107 Carbon Dioxide 31 H Anion Gap 6 BUN 20 Creatinine 0.90 Estim Creat Clear Calc 76 Estimated GFR > 60 Glucose 102 Calcium 8.9 Magnesium 2.4 H Total Bilirubin AST ALT Alkaline Phosphatase Lactate Dehydrogenase Troponin I NT-Pro-B Natriuret Pep Total Protein Albumin Triglycerides Cholesterol Amylase Pleural Fluid Source Pleural Color Pleural Appearance Pleural pH Pleural RBC Pleural Nuc Cells Pleural Neutrophils Pleural Lymphocytes Pleural Monocytes Pleural Macrophages Influenza A (RT-PCR) Influenza B (RT-PCR) RSV (RT-PCR) SARS-CoV-2 RNA (RT-PCR) Quality VTE Prophylaxis VTE prophylaxis: mechanical ordered
[2024-09-30] MEDS: PERFLUTREN LIPID MICROSPHERES 1.5 ML VIAL DILUTED TO 10 ML TOTAL VOLUME IV PUSH (09:40)
[2024-09-30 10:00] VITALS: O2SAT 94
[2024-09-30] MEDS: POTASSIUM CHLORIDE 10 MEQ ER TABLET PO ×2 (10:09→17:17)
[2024-09-30] MEDS: MORPHINE SULFATE (*CRX) 30 MG TABCR PO ×2 (10:09→20:57)
[2024-09-30] MEDS: CEPHALEXIN 250 MG CAPSULE PO (10:09)
[2024-09-30] MEDS: CALCIUM CITRATE 315 MG/VITAMIN D 6.25 MCG (250 UNITS) TAB 2 TABLET PO (10:09)
[2024-09-30] MEDS: VITAMIN B COMPLEX CAPSULE 1 CAP PO (10:10)
--- NOTE | 2024-09-30 11:11 | IVDEFINITY ---
Prior to administration of IV Definity the patient was educated on the risks and benefits of the imaging enhancing agent including potential adverse side effects. The patient verbalized understanding. Allergies were verified. No exclusion criteria were identified and at least one of the following inclusion criteria were met: 1) physician request, 2) patient technically difficult to image (per the [place] [employer] of Echocardi[employer] guidelines of two or more segments not discernable within the apical view), or 3) questionable left ventricular function. ?
[2024-09-30 14:00] VITALS: BP 150/78; PULSE 85; RESP 19; TEMP 36.6; O2SAT 94
[2024-09-30] MEDS: HYDROcodone/acetaminophen (*CRX) 10-325 MG TABLET 1 TAB PO (17:17)
--- NOTE | 2024-09-30 17:18 | ECHO_ITS ---
Patient Info Name: Tesfaye Tejada Age: 73 years : 1950 Gender: Male Ht: 70 in Wt: 330 lbs BSA: 2.80 m2 HR: 54 bpm BP: 147 / 75 mmHg Heart Rhythm: Sinus Rhythm Technical Quality: Fair Exam Date: 09/30/2024 9:45 AM Exam Location: Echo Lab Patient Status: Inpatient Admit Date: 09/29/2024 Staff Ordering Physician: Tayla Galeano APRN [place]: Remigio Ferrera RDCS Attending Provider: Maranda Vallejo PA-C Referring Physician: Waleska UREÑA; Exam Type: CA echo dop color flow w con Study Info Indications - sob, pleural effusion Complete two-dimensional, color flow and Doppler transthoracic echocardiogram is performed with contrast to opacify the left ventricle and to improve the deliniation of the left ventricle endocardial borders. Left Ventricular Outflow Tract Name Value Normal LVOT 2D LVOT Diameter 2.21 cm LVOT Doppler LVOT Peak Gradient 6 mmHg LVOT Mean Gradient 3 mmHg LVOT VTI 28.08 cm LVOT VTI/AV VTI Ratio 0.56 LVOT Stroke Volume 107.99 ml LVOT CO 5.54 l/min LVOT CI 1.98 L/min/m2 Pulmonic Valve Name Value Normal PV Regurgitation Doppler [place] Peak End Diastolic Velocity 107.88 cm/s Mitral Valve Name Value Normal MV Doppler MV Decel [place] 439.17 cm/s2 MV PHT 0 s MV Area (PHT) 2.71 cm2 4.00-5.00 MV Diastolic Function MV E Peak Velocity 123.06 cm/s MV A Peak Velocity 95.68 cm/s MV E/A 1.29 MV Decel Time 0 s MV Annular TDI MV E/e' (Septal) 27.05 <=8.00 MV E/e' (Lateral) 16.77 <=8.00 MV E/e' (Average) 21.91 Tricuspid Valve Name Value Normal TV Regurgitation Doppler TR Peak Velocity 217.16 cm/s TR Peak Gradient 19 mmHg Estimated PAP/RSVP RA Pressure 10 mmHg <=5 PA Systolic Pressure 29 mmHg <36 RV Systolic Pressure 29 mmHg <36 Aortic Valve Name Value Normal AV Doppler AV Peak Velocity 206.69 cm/s AV Peak Gradient 17 mmHg AV Mean Gradient 10 mmHg AV VTI 49.91 cm AV Area (Cont Eq VTI) 2.16 cm2 >=3.00 AV Area (Cont Eq Garth) 2.29 cm2 AV Regurgitation 2D LVOT Area 3.85 cm2 Ventricles Name Value Normal LV Dimensions 2D/MM IVS Diastolic Thickness (2D) 1.14 cm 0.60-1.00 LVID Diastole (2D) 6.55 cm 4.20-5.80 LVIW Diastolic Thickness (2D) 1.15 cm 0.60-1.00 LVID Systole (2D) 4.73 cm 2.50-4.00 LVOT Diameter 2.21 cm LV Mass (2D Cubed) 340.80 g 88.00-224.00 LV Mass Index (2D Cubed) 0.01 g/cm2 0.00-0.01 Relative Wall Thickness (2D) 0.35 LV Fractional Shortening/Ejection Fraction 2D/MM LV Fractional Shortening (2D) 28 % 25-43 LV EF (2D Teicholz) 53 % 52-72 LV Diastolic Volume (4C MOD) 221.22 ml LV EF (4C MOD) 51 % LV Diastolic Volume (2C MOD) 236.28 ml LV EF (2C MOD) 52 % LV Diastolic Volume (BP MOD) 229.55 ml 62.00-150.00 LV Diastolic Volume Index (BP MOD) 0.08 l/m2 0.03-0.07 LV Systolic Volume (BP MOD) 113.19 ml 21.00-61.00 LV Systolic Volume Index (BP MOD) 0.04 l/m2 0.01-0.03 LV EF (BP MOD) 51 % 52-72 LV Diastolic Length (4C) 10.05 cm LV Systolic Length (4C) 8.70 cm LV Stroke Volume (4C MOD) 111.96 ml Atria Name Value Normal LA Dimensions LA Volume (4C A-L) 48.04 ml LA Volume (BP A-L) 61.06 ml RA Dimensions RA Area (4C) 15.71 cm2 <=18.00 Report Signatures
[2024-09-30 22:00] VITALS: BP 145/86; PULSE 62; RESP 16; TEMP 36.4; O2SAT 94
[2024-10-01] VITALS (7 sets, daily range): BP systolic 104–150; BP diastolic 59–67; PULSE 58–80; RESP 16–18; TEMP 36.2–37.1; O2SAT 92–94
[2024-10-01] MEDS: HYDROcodone/acetaminophen (*CRX) 10-325 MG TABLET 1 TAB PO (03:48)
[2024-10-01] MEDS: ALPRAZolam (*CRX) 0.5 MG TABLET PO ×2 (03:50→21:12)
--- NOTE | 2024-10-01 08:00 | P.PNIM_ITS ---
Progress Note: A&P Assessment and Plan (1) Fall: Code(s): W19.XXXA - Unspecified fall, initial encounter Status: Acute Assessment and Plan: Patient had a fall overnight, requiring multiple people to help him get up. He states he was trying to urinate, bent down to better activate his artificial sphincter became dizzy and fell back hitting his head. He denies LOC. He states he has had about 3 falls in the past 2 weeks due to his legs giving out. He does not use any assistive devices for ambulation at baseline. - Orthostatic vital signs qshift Positive with associated dizziness. Given 1L NS bolus. - Head CT:No acute intracranial findings - C spine CT: no acute osseous abnormality of cervical spine - PT/OT ordered (2) Acute dyspnea: Code(s): R06.00 - Dyspnea, unspecified Status: Acute Assessment and Plan: - viral PCR negative - troponin: 0.014 -> 0.016 -> 0.024, elevating but remain flat. Likely secondary to demand ischemia due to the effusion. - EKG, initial: Sinus rhythm, delayed precordial RS transition, low QRS voltage in precordial leads, minimal Q-waves in high lateral leads, borderline ST-T-wave abnormality in inferior/high lateral leads, borderline artifact. When compared to EKG done on 09/26/2024, ventricular premature complex no longer present. - CXR: 1. Stable small right and moderate-sized left pleural effusions. 2. Cardiomegaly. 3. Widespread osseous metastatic disease. - Chest CTA: 1. No pulmonary embolus. 2. Small right and moderate-sized left pleural effusions. 3. Widespread osseous metastatic disease again seen. - suspect worsening dyspnea secondary to pleural effusions, cannot exclude ACS. (3) Pleural effusion: Code(s): J90 - Pleural effusion, not elsewhere classified Status: Acute Assessment and Plan: - CXR: 1. Stable small right and moderate-sized left pleural effusions. 2. Cardiomegaly. 3. Widespread osseous metastatic disease. - Chest CTA: 1. No pulmonary embolus. 2. Small right and moderate-sized left pleural effusions. 3. Widespread osseous metastatic disease again seen. - diagnostic thoracentesis of the left pleural effusion on 09/29 yeilding 1L dark jaziel colored fluid pleural fluid does not appear to have been sent for culture - Echo LVEF 53% - Viral PCR: negative for Flu/COVID/RSV - no supplemental O2 requirement - Monitor vital signs, I&Os, neuro status and patient is a fall risk - Follow WBC, serum electrolytes, temperature curves and cultures Shortness of breath is improved post thoracentesis. (4) Prostate cancer: Code(s): C61 - Malignant neoplasm of prostate Status: Chronic Assessment and Plan: - prostate cancer with Mets to the bone, widespread - follows with oncology, Dr. Sohan LENZ - last radiation treatment approximately 6 weeks ago (5) Obstructive sleep apnea: Code(s): G47.33 - Obstructive sleep apnea (adult) (pediatric) Status: Chronic Assessment and Plan: - continue home CPAP Plan Diet: Heart healthy GI Prophylaxis: Not currently indicated DVT Prophylaxis: SCDs Lines: Peripheral Code Status: Full code Time Spent With Patient Time with patient: 25 - 35 minutes Subjective Date/time seen: 10/01/24 08:00 Interval history: 73 y/o M presents here with shortness of breath with PMH of prostate cancer with bone metastases, kidney stones, and ASHIA. Patient is pleasant sitting up comfortably in his chair. Performed orthostatic vital signs during assessment which were positive with associated dizziness. Ordered a 1L NS bolus x1. Patient had no other complaints denying chest pain, shortness of breath, palpitations. He continues to work with therapy. Review of Systems Review of Systems: All systems reviewed & are unremarkable except as noted in HPI and below Exam Narrative: AF HR 80 RR 16 SpO2 93 BP 104/65 General: male in no acute respiratory distress who is nontoxic appearing, sitting up in bed HEENT: Normocephalic. Atraumatic. Extraocular movement intact. Sclera clear and anicteric. No facial asymmetry. Chest: Lungs are diminished with crackles in the left base, improved from yesterday. No wheezes.. CV: Heart was regular rate and rhythm. S1/S2. No murmurs, gallops, or rubs. Abd: Abdomen was soft. Nontender. Nondistended. Positive bowel sounds. No organomegaly or masses. Ext: No clubbing, cyanosis, or edema. 2+ DP pulses bilaterally. Neuro: Patient is alert and oriented x3. Speech is clear. Objective Data Vital Signs Vital Signs: Vital Signs - 24 hr 09/30/24 14:00 09/30/24 10:00 09/30/24 22:00 Temperature 97.9 F 97.6 F Pulse Rate 85 62 Respiratory Rate 19 16 Blood Pressure 150/78 H 145/86 H Pulse Oximetry 94 94 94 Oxygen Delivery Room Air 09/30/24 20:00 10/01/24 06:00 10/01/24 06:05 Temperature 98.0 F 97.2 F L Pulse Rate 68 70 Respiratory Rate 16 16 Blood Pressure 150/59 H 143/67 H Pulse Oximetry 93 94 Oxygen Delivery Room Air 10/01/24 06:10 10/01/24 06:00 Temperature 97.2 F L 98.0 F Pulse Rate 73 68 Respiratory Rate 16 16 Blood Pressure 119/62 150/59 H Pulse Oximetry 93 93 Oxygen Delivery Intake/Output Intake/Output: Intake & Output 09/28/24 09/29/24 09/30/24 10/01/24 23:59 23:59 23:59 23:59 Intake Total 1767 480 Output Total 1000 150 100 Balance -1000 1617 380 Meds/Results Medications: Active Medications Generic Name Dose Route Start Last Admin Trade Name Freq PRN Reason Stop Dose Admin Hydrocodone Bitart/Acetaminophen 1 tab 09/30/24 09:00 10/01/24 03:48 Hydrocodone/Acetaminophen (*Crx) 10-325 Mg Tablet PO 1 tab Q4H PRN Administration moderate-severe pain Alprazolam 0.5 mg 10/01/24 03:40 10/01/24 03:50 Alprazolam (*Crx) 0.5 Mg Tablet PO 0.5 mg TID PRN Administration Anxiety Calcium Citrate 2 tablet 09/30/24 09:00 09/30/24 10:09 Calcium Citrate 315 Mg/Vitamin D 6.25 Mcg (250 Units) Tab PO 2 tablet QAM TYRONE Administration Cephalexin HCl 250 mg 09/30/24 09:00 09/30/24 10:09 Cephalexin 250 Mg Capsule PO 250 mg DAILY TYRONE Administration Ibuprofen 800 mg 09/29/24 21:54 09/29/24 22:14 Ibuprofen 400 Mg Tablet PO 800 mg Q6H PRN Administration mild pain Morphine Sulfate 30 mg 09/29/24 21:00 09/30/24 20:57 Morphine Sulfate (*Crx) 30 Mg Tabcr PO 30 mg Q12H TYRONE Administration Potassium Chloride 10 meq 09/30/24 09:00 09/30/24 17:17 Potassium Chloride 10 Meq Er Tablet PO 10 meq BID TYRONE Administration Vitamin B Complex 1 cap 09/30/24 09:00 09/30/24 10:10 Vitamin B Complex Capsule PO 1 cap DAILY TYRONE Administration Radiology Results: ITS Impressions Chest CTA 09/29/24 14:47 IMPRESSION: 1. No pulmonary embolus. 2. Small right and moderate-sized left pleural effusions. 3. Widespread osseous metastatic disease again seen. Chest X-Ray 09/29/24 17:46 IMPRESSION: 1. . Small right and decreased now small left pleural effusion post left thoracentesis. No pneumothorax. 2. Opacities at the left lower lung zone which could represent associated atelectasis or pneumonia. Thoracentesis Ultrasound 09/29/24 18:46 IMPRESSION: 1. Successful ultrasound-guided thoracentesis yielding 1000 mL of dark jaziel- colored fluid. Cervical Spine CT 09/30/24 15:15 IMPRESSION: No acute intracranial findings. CT brain wo con, CT cervical spine wo con Ordering provider: Maranda Vallejo PA-C History: . fall and hit head . Comparison: None. Technique: CT of the cervical spine was performed without contrast. Sagittal and coronal reformatted images were also obtained and reviewed. Automated exposure control and iterative reconstruction technique were employed. .00 (accession [id number]), 538.87 (accession [id number]) Radiation reduction technique utilized.The dose-length product was 538.87 mGy- cm. FINDINGS: VERTEBRAE: Multiple hypodensities seen in the vertebrae. Metastatic lesions should be considered. Otherwise, No subluxation or acute fracture. The occipital condyles are intact. Osteolytic lesions or cysts also seen in the ribs, sternum and thoracic vertebrae. DISC SPACES: Narrowing of the disc C5-C6. Multilevel uncovertebral joint osteoarthritic changes. Narrowing of the foramina at the level of C4-C5, C5-C6 and C6-C7. PARASPINOUS SOFT TISSUES: Normal. Left pleural effusion is noted. Left central line is noted. IMPRESSION: No acute osseous abnormality cervical spine. Multiple osteolytic lesions in the spine, ribs, sternum and thoracic spine suggestive of metastatic lesions. Clinical correlation and further evaluation advised. Left pleural effusion. Head CT 09/30/24 15:15 IMPRESSION: No acute intracranial findings. CT brain wo con, CT cervical spine wo con Ordering provider: Maranda Vallejo PA-C History: . fall and hit head . Comparison: None. Technique: CT of the cervical spine was performed without contrast. Sagittal and coronal reformatted images were also obtained and reviewed. Automated exposure control and iterative reconstruction technique were employed. .00 (accession [id number]), 538.87 (accession [id number]) Radiation reduction technique utilized.The dose-length product was 538.87 mGy- cm. FINDINGS: VERTEBRAE: Multiple hypodensities seen in the vertebrae. Metastatic lesions should be considered. Otherwise, No subluxation or acute fracture. The occipital condyles are intact. Osteolytic lesions or cysts also seen in the ribs, sternum and thoracic vertebrae. DISC SPACES: Narrowing of the disc C5-C6. Multilevel uncovertebral joint osteoarthritic changes. Narrowing of the foramina at the level of C4-C5, C5-C6 and C6-C7. PARASPINOUS SOFT TISSUES: Normal. Left pleural effusion is noted. Left central line is noted. IMPRESSION: No acute osseous abnormality cervical spine. Multiple osteolytic lesions in the spine, ribs, sternum and thoracic spine suggestive of metastatic lesions. Clinical correlation and further evaluation advised. Left pleural effusion. Quality VTE Prophylaxis VTE prophylaxis: mechanical ordered
[2024-10-01 08:45] LABS: Basophils Percent Auto 0.5 % (0.2-1.2); Eosinophils Absolute Auto 0.2 K/mm3 (0-0.3); Eosinophils Percent Auto 2.9 % (0-4.4); Hematocrit 29.7 % (42.0-52.0); Hemoglobin 9.1 g/dL (14.0-18.0); Immature Granulocyte Absolute 0.03 K/mm3 (0.00-0.031); Immature Granulocyte Percent A 0.5 % (0-0.5); Lymphocytes Absolute Auto 0.93 K/mm3 (0.9-3.2); Lymphocytes Percent Auto 15.8 % (18.3-44.2); Mean Corpuscular HGB Conc 30.6 g/dl (32-36); Mean Corpuscular Hemoglobin 29.6 pg (26-34); Mean Corpuscular Volume 96.7 fl (80-100); Mean Platelet Volume 9.3 fl (7.4-10.4); Monocytes Absolute Auto 0.5 K/mm3 (0.1-0.6); Neutrophils Absolute Auto 4.2 K/mm3 (1.3-6.7); Neutrophils Percent Auto 71.3 % (45.5-73.1); Platelet Count Result 145 k/mm3 (150-375); Red Blood Count 3.07 M/mm3 (4.6-6.20); White Blood Count 5.9 K/mm3 (4.5-10.0)
[2024-10-01] MEDS: VITAMIN B COMPLEX CAPSULE 1 CAP PO (08:50)
[2024-10-01] MEDS: POTASSIUM CHLORIDE 10 MEQ ER TABLET PO ×2 (08:50→16:38)
[2024-10-01] MEDS: CEPHALEXIN 250 MG CAPSULE PO (08:50)
[2024-10-01] MEDS: CALCIUM CITRATE 315 MG/VITAMIN D 6.25 MCG (250 UNITS) TAB 2 TABLET PO (08:50)
[2024-10-01] MEDS: MORPHINE SULFATE (*CRX) 30 MG TABCR PO ×2 (08:50→21:12)
[2024-10-01 08:58] LABS: Alanine Aminotransferase 13 U/L (6-50); Albumin Level 3.6 g/dL (3.5-5.1); Alkaline Phosphatase 89 U/L (38-126); Anion Gap 7 mmol/L (4-12); Aspartate Amino Transferase 49 U/L (17-59); Bilirubin,Total 0.6 mg/dL (0.2-1.3); Blood Urea Nitrogen 22 mg/dL (9-20); Carbon Dioxide 32 mmol/L (22-30); Chloride 105 mmol/L (98-107); Estimated CRCL calculation 75 ml/min; Estimated Glomerular Filt Rate > 60; Glucose 100 mg/dL (65-110); Potassium 3.3 mmol/L (3.4-5.0); Sodium 144 mmol/L (137-145)
[2024-10-01] MEDS: POTASSIUM CHLORIDE 20 MEQ ER TABLET 40 MEQ PO (11:23)
[2024-10-01] MEDS: SODIUM CHLORIDE 0.9% IV 1,000 ML 999 ML IV CONT (11:24)
[2024-10-02] VITALS (10 sets, daily range): BP systolic 133–165; BP diastolic 52–88; PULSE 65–75; RESP 16–18; TEMP 36.3–36.5; O2SAT 94
[2024-10-02 06:02] LABS: Basophils Percent Auto 0.7 % (0.2-1.2); Eosinophils Absolute Auto 0.2 K/mm3 (0-0.3); Hematocrit 27.6 % (42.0-52.0); Hemoglobin 8.3 g/dL (14.0-18.0); Immature Granulocyte Absolute 0.03 K/mm3 (0.00-0.031); Immature Granulocyte Percent A 0.7 % (0-0.5); Lymphocytes Absolute Auto 0.68 K/mm3 (0.9-3.2); Lymphocytes Percent Auto 15.1 % (18.3-44.2); Mean Corpuscular HGB Conc 30.1 g/dl (32-36); Mean Corpuscular Hemoglobin 29.5 pg (26-34); Mean Corpuscular Volume 98.2 fl (80-100); Mean Platelet Volume 9.1 fl (7.4-10.4); Monocytes Absolute Auto 0.4 K/mm3 (0.1-0.6); Monocytes Percent Auto 9.4 % (2.6-8.5); Neutrophils Absolute Auto 3.2 K/mm3 (1.3-6.7); Neutrophils Percent Auto 70.1 % (45.5-73.1); Platelet Count Result 133 k/mm3 (150-375); Red Blood Count 2.81 M/mm3 (4.6-6.20); Red Cell Distribution Width 16.8 % (11.5-14.5); White Blood Count 4.5 K/mm3 (4.5-10.0)
[2024-10-02 06:14] LABS: Alanine Aminotransferase 13 U/L (6-50); Albumin Level 3.3 g/dL (3.5-5.1); Alkaline Phosphatase 81 U/L (38-126); Anion Gap 6 mmol/L (4-12); Aspartate Amino Transferase 41 U/L (17-59); Bilirubin,Total 0.5 mg/dL (0.2-1.3); Blood Urea Nitrogen 22 mg/dL (9-20); Calcium 8.8 mg/dL (8.4-10.2); Carbon Dioxide 31 mmol/L (22-30); Chloride 107 mmol/L (98-107); Estimated CRCL calculation 84 ml/min; Estimated Glomerular Filt Rate > 60; Glucose 94 mg/dL (65-110); Potassium 3.5 mmol/L (3.4-5.0); Sodium 144 mmol/L (137-145)
[2024-10-02] MEDS: CALCIUM CITRATE 315 MG/VITAMIN D 6.25 MCG (250 UNITS) TAB 2 TABLET PO (10:21)
[2024-10-02] MEDS: CEPHALEXIN 250 MG CAPSULE PO (10:21)
[2024-10-02] MEDS: POTASSIUM CHLORIDE 10 MEQ ER TABLET PO (10:21)
[2024-10-02] MEDS: VITAMIN B COMPLEX CAPSULE 1 CAP PO (10:21)
[2024-10-02] MEDS: MORPHINE SULFATE (*CRX) 30 MG TABCR PO (10:21)
--- NOTE | 2024-10-02 11:55 | P.CONCA_ITS ---
Assessment and Plan Assessment and plan (1) Fall: Code(s): W19.XXXA - Unspecified fall, initial encounter Status: Acute Plan Fall likely related to dizziness, weakness and lack of balance Dizziness possible orthostatic hypotension Atypical back pain likely noncardiac mostly musculoskeletal Chronic shortness of breath was no evidence of ACS or CHF plan IV fluids and increase oral intake No evidence of acute or unstable cardiac condition Follow-up in the cardiology clinic for event monitor History of Present Illness History of Present Illness Consult date/time: 10/02/24 11:55 Reason For Visit: Pleural effusion Review of Systems Review of Systems: 71-year-old male patient with history of metastatic breast cancer who presented to the hospital with recurrent episode of dizziness. Patient has been having dizziness for several months and has been getting worse. It has been associated with shortness of breath is present with [id number] activity. He had a fall recently on his back when he momentarily felt dizzy to lack of findings. Patient denies loss of consciousness. He had anemia with recent blood transf usions. He has also been complaining of back pain upper part diffuse chronic worse since the fall. Patient is poor historian information obtained from the chart and from patient. All systems reviewed & are unremarkable except as noted in HPI and below PMFSH Past Medical History Medical History Anemia due to chemotherapy Bone metastasis History of iron deficiency anemia Kidney stones Obstructive sleep apnea Prostate cancer Surgical History Surgical History H/O umbilical hernia repair Hx of cystoscopy Family History Family History Mother Family history of malignant neoplasm of breast in first degree relative Carcinoma of colon Father Family history of Parkinson's disease Social History Social History Smoking status: Never smoker Second hand tobacco smoke exposure: Yes Alcohol intake: never Substance use: never Substance use type: does not use Do You Feel Safe in your Home?: Yes Lack of Transportation: No Lack of Food: Never True Current Housing: I Have Housing Concerned About Future Housing: No Difficulty Paying Gas/Electric Bills: No Difficulty Paying for Meds: No Currently Unemployed: No Education: Decline to Answer Difficulty w/ Childcare or Family Care: No Living arrangements: with family Spiritual care concerns: No Meds Home Medications and Allergies Home Medications Medication Instructions Recorded Confirmed Type calcium 300 mg-vit D3 200 2 tablet PO DAILY 10/31/20 09/29/24 History [id number] 13.5 mg tablet (Citracal Plus Bone Density Builder) vitamin K2 40 mcg tablet 40 mcg PO DAILY 10/31/20 09/29/24 History ibuprofen 800 mg tablet 800 mg PO Q6H PRN pain 07/10/21 09/29/24 History morphine 15 mg tablet,extended 30 mg PO Q12H 07/10/21 09/29/24 History release potassium chloride 10 mEq 10 meq PO BID 06/17/22 09/29/24 History tablet,extended release(part/cryst) cephalexin 250 mg capsule 250 mg PO DAILY 09/29/24 09/29/24 History ferrous sulfate 325 mg (65 mg 325 mg BID 09/29/24 09/29/24 History iron) tablet (FeroSul) hydrocodone 10 mg-acetaminophen 1 tablet PO QID 09/29/24 09/29/24 History 325 mg tablet vitamin B complex 1 tablet PO DAILY 09/29/24 09/29/24 History alprazolam 0.5 mg tablet (Xanax) 0.5 mg TID PRN Anxiety 10/01/24 10/01/24 History Allergies Allergy/AdvReac Type Severity Reaction Status Date / Time No Known Allergies Allergy Unknown . Verified 09/26/24 19:00 Vital Signs Vital Signs - 24 hr 10/01/24 14:00 10/01/24 20:00 10/01/24 22:00 Temperature 37.1 C 36.4 C L Pulse Rate 58 L 66 Respiratory Rate 18 16 Blood Pressure 129/60 139/65 Pulse Oximetry 92 93 Oxygen Delivery Room Air 10/02/24 06:00 10/02/24 06:05 10/02/24 06:00 Temperature 36.3 C L 36.5 C 36.3 C L Pulse Rate 68 66 68 Respiratory Rate 16 16 16 Blood Pressure 137/52 L 165/75 H 137/52 L Pulse Oximetry 94 94 94 Oxygen Delivery 10/02/24 06:10 10/02/24 09:12 10/02/24 10:52 Temperature 36.3 C L Pulse Rate 65 66 Respiratory Rate 16 Blood Pressure 149/88 H 138/60 Pulse Oximetry 94 Oxygen Delivery Room Air 10/02/24 10:54 10/02/24 10:56 10/02/24 11:15 Temperature Pulse Rate 70 75 66 Respiratory Rate Blood Pressure 134/66 133/69 138/60 Pulse Oximetry Oxygen Delivery 10/02/24 11:18 10/02/24 11:19 Temperature Pulse Rate 70 75 Respiratory Rate Blood Pressure 134/66 133/69 Pulse Oximetry Oxygen Delivery Exam Const: General: comfortable and no acute distress Other: Able to lie flat HENMT: Face/Nose/Sinus: Normal nares present and no epistaxis Mouth: Yes moist mucous membranes Eyes: Sclera: sclerae normal Pupils: Equal, round and reactive pupils present Neck: Neck: supple and no JVD Carotids: no bruits Resp: Auscultation: clear to auscultation bilaterally and lung sounds not diminished Other: No chest wall tenderness Cardio: Rate: regular rate Rhythm: regular rhythm Heart sounds: no gallops, no murmurs and no rubs GI: GI Palp: Yes Soft to palpation and No Tenderness to palpation present (GI) Auscultation: normal bowel sounds Skin: General skin exam: normal color, rashes and/or lesions noted and no erythema Other: Warm Neuro: Cranial nerves: Yes Equal, round and reactive pupils present Speech: normal speech Other: No obvious focal deficit or facial asymmetry Extrem: General: no edema Other: Normal capillary refills Intact distal pulses. Results Labs and Meds 10/02/24 05:29 10/02/24 05:29 Lab results: Cardiac Enzymes 10/02/24 Range/Units 05:29 AST 41 (17-59) U/L CBC 10/02/24 Range/Units 05:29 WBC 4.5 (4.5-10.0) K/mm3 RBC 2.81 L (4.6-6.20) M/mm3 Hgb 8.3 L (14.0-18.0) g/dL Hct 27.6 L (42.0-52.0) % Plt Count 133 L (150-375) k/mm3 Lymph # (Auto) 0.68 L (0.9-3.2) K/mm3 [place] # (Auto) 0.4 (0.1-0.6) K/mm3 Eos # (Auto) 0.2 (0-0.3) K/mm3 Baso # (Auto) 0.0 (0.0-0.1) K/mm3 Comprehensive Metabolic Panel 10/02/24 Range/Units 05:29 Sodium 144 (137-145) mmol/L Potassium 3.5 (3.4-5.0) mmol/L Chloride 107 (98-107) mmol/L Carbon Dioxide 31 H (22-30) mmol/L BUN 22 H (9-20) mg/dL Creatinine 0.80 (0.7-1.3) mg/dL Glucose 94 (65-110) mg/dL Calcium 8.8 (8.4-10.2) mg/dL AST 41 (17-59) U/L ALT 13 (6-50) U/L Alkaline Phosphatase 81 (38-126) U/L Total Protein 7.0 (6.3-8.2) g/dL Albumin 3.3 L (3.5-5.1) g/dL Intake and Output 10/01/24 10/02/24 10/02/24 23:59 07:59 15:59 Intake Total 640 500 240 Output Total 250 700 Balance 390 -200 240 Intake: Oral 640 500 240 Output: Urine 250 700 Other: Number of Bowel Movements Today 2 Patient Weight 10/02/24 23:59 Weight 97.4 kg
--- NOTE | 2024-10-02 13:24 | P.DS_ITS ---
DS: Admitting Diagnosis Discharge Date 10/02/2024 Admitting Diagnosis fall acute dyspnea pleural effusion prostate cancer ASHIA DS: Discharge Diagnosis Discharge Diagnosis (1) Fall: Code(s): W19.XXXA - Unspecified fall, initial encounter Status: Acute (2) Acute dyspnea: Code(s): R06.00 - Dyspnea, unspecified Status: Acute (3) Pleural effusion: Code(s): J90 - Pleural effusion, not elsewhere classified Status: Acute (4) Prostate cancer: Code(s): C61 - Malignant neoplasm of prostate Status: Chronic (5) Obstructive sleep apnea: Code(s): G47.33 - Obstructive sleep apnea (adult) (pediatric) Status: Chronic DS: Summary Hospital Course Reason for hospitalization: fall acute dyspnea pleural effusion prostate cancer ASHIA Hospital Course: 73 y/o M presents here with shortness of breath with PMH of prostate cancer with bone metastases, kidney stones, and ASHIA. On admission troponins were elevated, but flat likely related to demand ischemia due to the pleural effusions seen on imaging. EKG without concern for ischemia. Chest XR showed stable small right a nd moderate left pleural effusions with cardiomegaly and widespread osseous metastatic disease. A Chest CTA was obtained and was negative for PE. Patient underwent a thoracentesis of the left pleural effusion on 09/29 yielding 1L dark jaziel colored fluid. Dyspnea resolved following the procedure. Echo was obtained and showed EF of 53%. Cardiology evaluated patient and plan to have follow up in the office with a monitor car operator. Patient had a fall overnight during his admission. He states he was trying to urinate, bent down to better activate his artificial sphincter became dizzy and fell back hitting his head. He denies LOC. He notes that he has had about 3 falls in the past 2 weeks due to his legs giving out. He does not use any assistive devices for ambulation at baseline. Encouraged patient to use a walker with ambulation. Head CT and c spine CT were unremarkable. Orthostatic vital signs were found to be positive with associated dizziness. Patient was given IV fluids and this resolved. PT/OT evaluated patient and recommended home health. At time of discharge patient has no complaints denying chest pain, shortness of breath, palpitations, nausea/vomiting, dizziness/lightheadedness, and abdominal pain. patient discharged home with home health in a stable condition. He is to follow-up with cardiology as scheduled and his primary care provider in 1 week. Status at Discharge Functional status at discharge: uses cane/walker Time Spent with Patient Time attestation: Total time spent providing and/or coordinating discharge services: Time spent: Greater than 30 minutes Exam Narrative: AF HR 75 RR 16 SpO2 94 BP 133/69 General: male in no acute respiratory distress who is nontoxic appearing, sitting up in bed HEENT: Normocephalic. Atraumatic. Extraocular movement intact. Sclera clear and anicteric. No facial asymmetry. Chest: Lungs are diminished to auscultation bilaterally. No wheezes.. CV: Heart was regular rate and rhythm. S1/S2. No murmurs, gallops, or rubs. Abd: Abdomen was soft. Nontender. Nondistended. Positive bowel sounds. No organomegaly or masses. Ext: No clubbing, cyanosis, or edema. 2+ DP pulses bilaterally. Neuro: Patient is alert and oriented x3. Speech is clear. DS: Data Data Completed and Pending Completed studies during hospitalization: head CT C-spine CT thoracentesis ultrasound chest x-ray chest x-ray chest CTA Pending studies at discharge: Pending at discharge 09/29/24 15:55 Cytology [PTH] Routine Labs on day of discharge: Labs from last 24 hours 10/02/24 05:29 WBC 4.5 RBC 2.81 L Hgb 8.3 L Hct 27.6 L MCV 98.2 MCH 29.5 MCHC 30.1 L RDW 16.8 H Plt Count 133 L MPV 9.1 Immature Gran % (Auto) 0.7 H Neut % (Auto) 70.1 Lymph % (Auto) 15.1 L [place] % (Auto) 9.4 H Eos % (Auto) 4.0 Baso % (Auto) 0.7 Lymph # (Auto) 0.68 L [place] # (Auto) 0.4 Eos # (Auto) 0.2 Baso # (Auto) 0.0 Abs Immat Gran (auto) 0.03 Absolute Neuts (auto) 3.2 Absolute Nucleated RBC 0.000 Nucleated RBC % 0.0 Sodium 144 Potassium 3.5 Chloride 107 Carbon Dioxide 31 H Anion Gap 6 BUN 22 H Creatinine 0.80 Estim Creat Clear Calc 84 Estimated GFR > 60 Glucose 94 Calcium 8.8 Total Bilirubin 0.5 AST 41 ALT 13 Alkaline Phosphatase 81 Total Protein 7.0 Albumin 3.3 L Discharge Plan Discharge Attending physician on discharge: Patience Shi Discharging Clinician: Maranda Vallejo Anticipated Discharge Date/Time: 10/02/24 12:39 Patient Disposition: Home Health Service Activity: as tolerated Diet: as tolerated and heart healthy Discharge Instructions: Per Care Coordination: Therapy is recommending home [facility] for physical and occupational therapy. Referral was sent to [facility] [phone]. Due to weekend discharge, we will follow up with [facility] on Friday to confirm they can see you, if not we will arrange an alternative company and will notify you. Discharge disposition: Patient was admitted to the hospital for shortness of breath He was diagnosed with a pleural effusion (fluid on the lung) and underwent a thoracentesis on 09/29 Shortness of breath has since resolved An echo showed a slightly decreased ejection fraction Cardiology evaluated patient No evidence of acute or unstable cardiac conditions Patient is to follow up in the cardiology office for an event monitor, call for an appointment Patient had a fall during his hospitalization and states that he has been having falls at home as well Imaging was negative for trauma Physical therapy and occupation therapy evaluated patient and recommend home health therapy Patient was having low blood pressures likely secondary to a bit of dehydration as they returned to normal with fluids Monitor blood pressures Take caution while standing, rising, or moving Change positions slowly taking a break between each position change If you're standing and feel dizzy, sit back down and take a break Ensure good fluid intake Encouraged to continue with yearly vaccinations Return to the emergency department if you develop sudden shortness of breath, chest pain, nausea, vomiting, upset stomach or intractable diarrhea Return to the emergency department if you develop fever greater than 101.5 Follow-up with the primary care physician within 1-2 weeks Thank you for choosing [facility] for your healthcare needs Patient Instructions: Heart Failure (DC), Pleural Effusion (DC), Hypotension (DC), Thoracentesis (DC) Patient Language: Cuban Stand Alone Forms: General Discharge Information Follow-up/Referrals: El Mendoza MD [Physician] - Call for Appointment Cornelio,JD Campbell [Primary Care Provider] - 1 Week Discharge Medications: Continued potassium chloride 10 mEq tablet,ER particles/crystals 10 meq PO BID vitamin K2 40 mcg tablet 40 mcg PO DAILY Citracal Plus Bone Density 300-200-13.5 mg-unit-mg tablet 2 tablet PO DAILY ibuprofen 800 mg tablet 800 mg PO Q6H PRN (Reason: pain) morphine 15 mg tablet extended release 30 mg PO Q12H hydrocodone-acetaminophen 10-325 mg tablet 1 tablet PO QID ferrous sulfate [FeroSul] 325 mg (65 mg iron) tablet 325 mg BID cephalexin 250 mg capsule 250 mg PO DAILY vitamin B complex Tablet 1 tablet PO DAILY alprazolam [Xanax] 0.5 mg tablet 0.5 mg TID PRN (Reason: Anxiety) Date of admission: 10/01/24 13:25 Primary Care Provider: Abran*Shannan Admitting Provider: El Mendoza Attending physician on admission: Maranda Vallejo Condition: Stable Hospitalist MIPS Heart Failure (Exclusion) Patient has history of Heart Transplant or Left Ventricular Assistive Device?: No IF YES, STOP HERE Heart Failure (Qualifier) Patient has current or prior documentation of LVEF less than or equal to 40%, or mod/servere depressed LVSF?: No IF NO, STOP HERE
== END 2024-10-02 14:30 | disposition home health service (06) | DRG 187 ==
LOC: ANHED 16:24 → ANH3MED 18:25
PROVIDERS: Student in an Organized Health Care Education/Training Program; Admitting Provider Internal Medicine Interventional Cardiology; Emergency Provider Emergency Medicine; PCP Physician Assistant; Visit Provider Internal Medicine
DX: J90 Pleural effusion, not elsewhere classified (principal); C79.51 Secondary malignant neoplasm of bone; I24.89 Other forms of acute ischemic heart disease; C61 Malignant neoplasm of prostate; G47.33 Obstructive sleep apnea (adult) (pediatric); I95.1 Orthostatic hypotension; R29.6 Repeated falls; W19.XXXA Unspecified fall, initial encounter; Y92.230 Patient room in hospital as the place of occurrence of the external cause; Z20.822 Contact with and (suspected) exposure to COVID-19; Z87.442 Personal history of urinary calculi; Z91.81 History of falling; Z80.0 Family history of malignant neoplasm of digestive organs
CPT/HCPCS: 32555; 36415; 36600; 70450; 71045; 71275; 72125; 80048; 80053; 82040; 82042; 82150; 82247; 82465; 82805; 82945; 82947; 83615; 83735; 83880; 83986; 84155; 84157; 84311; 84478; 84484; 85018; 85025; 85027; 85610; 85730; 87637; 88108; 88305; 89051; 93005; 96361; 96374; 96375; 97162; 97165; 99285; A9270; C8929; G0378; J2270; J7030; Q9957; Q9967

== ENCOUNTER 2024-10-11 13:24 | Outpatient (NON) | payer MEDICARE, SELFPAY ==
[2024-10-11 14:36] LABS: Basophils Percent Auto 0.5 % (0.2-1.2); Eosinophils Absolute Auto 0.2 K/mm3 (0-0.3); Eosinophils Percent Auto 4.6 % (0-4.4); Hematocrit 27.8 % (42.0-52.0); Hemoglobin 8.2 g/dL (14.0-18.0); Immature Granulocyte Absolute 0.05 K/mm3 (0.00-0.031); Immature Granulocyte Percent A 1.3 % (0-0.5); Lymphocytes Absolute Auto 0.72 K/mm3 (0.9-3.2); Lymphocytes Percent Auto 18.4 % (18.3-44.2); Mean Corpuscular HGB Conc 29.5 g/dl (32-36); Mean Corpuscular Hemoglobin 29.3 pg (26-34); Mean Corpuscular Volume 99.3 fl (80-100); Mean Platelet Volume 9.9 fl (7.4-10.4); Monocytes Absolute Auto 0.4 K/mm3 (0.1-0.6); Monocytes Percent Auto 9.2 % (2.6-8.5); Neutrophils Absolute Auto 2.6 K/mm3 (1.3-6.7); Platelet Count Result 130 k/mm3 (150-375); Red Cell Distribution Width 17.4 % (11.5-14.5); White Blood Count 3.9 K/mm3 (4.5-10.0)
[2024-10-11 14:56] LABS: Hypochromasia 1+; Platelet Estimate Slightly Decreased (Adequate); Schistocytes None Seen
== END 2024-10-11 13:25 | disposition home or self-care (01) ==
LOC: HOME HLTH 13:33
PROVIDERS: PCP Physician Assistant; Visit Provider Physician Assistant
DX: J90 Pleural effusion, not elsewhere classified (principal); C61 Malignant neoplasm of prostate; G47.33 Obstructive sleep apnea (adult) (pediatric); R06.00 Dyspnea, unspecified
CPT/HCPCS: 85025

== ENCOUNTER 2024-10-20 09:02 | Outpatient (CLI) | payer MEDICARE, SELFPAY ==
[2024-10-12 09:31] VITALS: BMI 32.5
--- NOTE | 2024-10-12 09:34 | PC.NURSE ---
Pre Radiology instructions Report to the IMAGING ENTRANCE on date ___10/14/24__ at time ___10:00AM____ for procedure Time: _10:30AM__ YOU MAY BE MONITORED AT HOSPITAL FOR UP TO 4 HOURS AFTER YOUR PROCEDURE. A visitor will be allowed to accompany the patient into the hospital. You and your visitor will be asked to self-screen and do not enter if you have any COVID symptoms. A mask is OPTIONAL within the hospital. Patients are to have no food or drink 6 hours prior to procedure time Driving will be restricted after the procedure, you must have a person to drive you home. Labs will be drawn in preop area and once reviewed, you will be taken to radiology area for procedure. When the procedure is completed, you will be taken to outpatient where you will be monitored for several hours. You may have one visitor in this area. Other than holding anti-coagulants, patient may take other medication(s) as scheduled. Prior to your appointment date patients are instructed to hold anti-coagulants after discussing with ordering provider to stop. If unable to discontinue anti-coagulants please notify radiologist. ? No aspirin or warfarin (Coumadin) for 7 days prior to the procedure. ? No clopidogrel (Plavix), ticagrelor (Brilinta), prasugrel (Effient) or dabigatran (Pradaxa) for 5 days prior to the procedure. ? No rivaroxaban (Xarelto), apixaban (Eliquis), dipyridamole (Aggrenox or Persantine) or cilostazol (Pletal) for 2 days prior to the procedure. Medications to discontinue per physician: ____NONE____ Date to take last dose: Please leave all valuables, including medications, at home the day of procedure. The hospital will not accept responsibility for valuables. Wear comfortable, loose fitting clothing.? Follow any additional instructions given to you from ordering provider. Telephone instructions given to ___PATIENT'S WIFE and asked if any additional questions and then verbalized understanding. Patient advised to call scheduling provider office or registration scheduling [phone] if any additional questions.
[2024-10-15 09:39] VITALS: BMI 35.5
--- NOTE | 2024-10-15 09:39 | PC.NURSE ---
Pre Radiology instructions Report to the outpatient [facility] on date _10/20/24____ at time ___09:00am____ for procedure Time: _09:30am___ YOU MAY BE MONITORED AT HOSPITAL FOR UP TO 4 HOURS AFTER YOUR PROCEDURE. A visitor will be allowed to accompany the patient into the hospital. You and your visitor will be asked to self-screen and do not enter if you have any COVID symptoms. A mask is OPTIONAL within the hospital. Patients are to have no food or drink 6 hours prior to procedure time Driving will be restricted after the procedure, you must have a person to drive you home. Labs will be drawn in preop area and once reviewed, you will be taken to radiology area for procedure. When the procedure is completed, you will be taken to outpatient where you will be monitored for several hours. You may have one visitor in this area. Other than holding anti-coagulants, patient may take other medication(s) as scheduled. Prior to your appointment date patients are instructed to hold anti-coagulants after discussing with ordering provider to stop. If unable to discontinue anti-coagulants please notify radiologist. ? No aspirin or warfarin (Coumadin) for 7 days prior to the procedure. ? No clopidogrel (Plavix), ticagrelor (Brilinta), prasugrel (Effient) or dabigatran (Pradaxa) for 5 days prior to the procedure. ? No rivaroxaban (Xarelto), apixaban (Eliquis), dipyridamole (Aggrenox or Persantine) or cilostazol (Pletal) for 2 days prior to the procedure. Medications to discontinue per physician: ____None ____ Date to take last dose: ___None Please leave all valuables, including medications, at home the day of procedure. The hospital will not accept responsibility for valuables. Wear comfortable, loose fitting clothing.? Follow any additional instructions given to you from ordering provider. Telephone instructions given to __Wife and asked if any additional questions and then verbalized understanding. Patient advised to call scheduling provider office or registration scheduling [phone] if any additional questions.
[2024-10-20] VITALS (7 sets, daily range): BP systolic 126–143; BP diastolic 44–86; PULSE 48–61; RESP 16–18; O2SAT 93–97
--- NOTE | ~2024-10-20 | XR_ITS ---
[id number] Ordering provider: Angel Luis Parry MD History: 73 years Male with . POST THORA . Comparison: September 29, 2024 FINDINGS: MEDIASTINUM: The cardiac silhouette is mildly enlarged. Left Port-A-Cath with the tip overlying the r ight atrium. LUNGS: No pneumothorax. Left basilar atelectasis versus pneumonia with pleural effusion. Underlying e mphysematous changes. OTHER: No free air under the diaphragm. Degenerative changes of the spine. IMPRESSION: Left basilar atelectasis versus pneumonia with pleural effusion. Reviewed, dictated and finalized at location A. AL LOGISTICS ANALYST
--- NOTE | ~2024-10-20 | US_ITS ---
EXAMINATION: US thoracentesis DATE: 10/20/2024 10:34 INDICATION: Left pleural effusion TECHNIQUE: The procedure and its risks and benefits were discussed with the patient. Potential risks discussed included bleeding, infection, and pneumothorax. The patient understood the risks and agreed to proceed. The skin was prepped and draped in sterile fashion. 1% lidocaine was used for local anes thesia. Under ultrasound guidance, a 5 Fr catheter with trochar was advanced into the left pleural ef fusion. Fluid was aspirated. The catheter was removed, and a dressing was applied. There were no imme diate complications. FINDINGS: Ultrasound images demonstrate a moderate-sized left pleural effusion and the catheter within the flui d. IMPRESSION: 1. Successful ultrasound-guided thoracentesis yielding 1100 mL of dark jaziel/brown-colored fluid. Reviewed, dictated and finalized at location A. STICS VICE PRESIDENT IMPRESSION: 1. Successful ultrasound-guided thoracentesis yielding 1100 mL of dark jaziel/b rown-colored fluid.
--- NOTE | 2024-10-20 12:24 | SUR.PREOP ---
patient noted to have a HR in the mid to high 30s. Counted via radial pulse to confirm it was that low. MD Quinones was called and made aware. MD Quinones assessed patient bedside and will contact ordering provider. Patient was having no symptoms and was d/c home with the understanding of having symptoms he is to return to the ER.
== END 2024-10-20 12:15 | disposition home or self-care (01) ==
PROVIDERS: Radiology Diagnostic Radiology; PCP Physician Assistant; Visit Provider Internal Medicine Hematology & Oncology
DX: R06.02 Shortness of breath (principal); C61 Malignant neoplasm of prostate
CPT/HCPCS: 32555; 88108; 88305; 88342